=== PATIENT | female | born 1930 | race Caucasian/White ===

== ENCOUNTER → 2016-11-11 | Outpatient (REF) | payer MEDICARE, OTHER ==
[~2016-11-11] MED LIST: /AMLO25TA OR; ASPI81TA83 OR; CIPR25SS OR; LOVA20TA2 OR; PLAV75TA2 OR; PROP80CA OR; TOFR10TA OR
[2016-11-11 12:12] LABS: ALBUMIN 3.6 GM/DL (3.2-5.2); ALBUMIN/GLOBULIN RATIO 1.09 (1.00-1.93); BILIRUBIN,TOTAL 0.6 MG/DL (0.2-1.0); CALCIUM LEVEL 8.4 MG/DL (8.8-10.2); CREATININE FOR GFR 1.22 MG/DL (0.55-1.02); GLOMERULAR FILTRATION RATE 44.8 (>32); POTASSIUM SERUM 4.1 MEQ/L (3.5-5.1); TOTAL PROTEIN 6.9 GM/DL (6.4-8.2)
[2016-11-11 12:13] LABS: FREE T4 1.43 NG/DL (0.76-1.46)
== END ==
LOC: M SFHCCLAY 08:15
PROVIDERS: ATTEND Family Medicine
DX: I47.1 Supraventricular tachycardia (principal); F41.9 Anxiety disorder, unspecified; I69.30 Unspecified sequelae of cerebral infarction

== ENCOUNTER → 2017-09-20 | Outpatient (REF) | payer MEDICARE, OTHER ==
[2017-09-20 11:43] LABS: ALBUMIN 3.9 GM/DL (3.2-5.2); ALBUMIN/GLOBULIN RATIO 1.15 (1.00-1.93); ALKALINE PHOSPHATASE 92 U/L (45-117); ALT/SGPT 10 U/L (12-78); ANION GAP 5 MEQ/L (8-16); AST/SGOT 11 U/L (7-37); BILIRUBIN,TOTAL 0.5 MG/DL (0.2-1.0); BLOOD UREA NITROGEN 14 MG/DL (7-18); CALCIUM LEVEL 8.6 MG/DL (8.8-10.2); CARBON DIOXIDE LEVEL 29 MEQ/L (21-32); CHLORIDE LEVEL 109 MEQ/L (98-107); CHOLESTEROL LEVEL 148 MG/DL (<200); CHOLESTEROL RISK RATIO 2.312 (<5); CREATININE FOR GFR 1.19 MG/DL (0.55-1.30); GLUCOSE, FASTING 90 MG/DL (70-100); HDL CHOLESTEROL 64 MG/DL (>40); LDL CHOLESTEROL 67.4 MG/DL (<100); NON-HDL-C 84 MG/DL; POTASSIUM SERUM 4.5 MEQ/L (3.5-5.1); SODIUM LEVEL 143 MEQ/L (136-145); TOTAL PROTEIN 7.3 GM/DL (6.4-8.2); TRIGLYCERIDES LEVEL 83 MG/DL (<150)
== END ==
LOC: M SFHCCLAY 08:17
DX: I69.30 Unspecified sequelae of cerebral infarction (principal); Z79.82 Long term (current) use of aspirin; Z79.01 Long term (current) use of anticoagulants; Z79.899 Other long term (current) drug therapy
CPT/HCPCS: 84443

== ENCOUNTER → 2017-09-28 | Outpatient (CLI) | payer MEDICARE, OTHER | LOC: M CLY 14:08 | DX: M25.521 Pain in right elbow (principal); M79.621 Pain in right upper arm | CPT/HCPCS: 73080 ==

== ENCOUNTER → 2018-03-22 | Outpatient (REF) | payer MEDICARE, OTHER ==
[2018-03-22 12:07] LABS: ANION GAP 8 MEQ/L (8-16); BLOOD UREA NITROGEN 25 MG/DL (7-18); CALCIUM LEVEL 8.5 MG/DL (8.8-10.2); CARBON DIOXIDE LEVEL 27 MEQ/L (21-32); CHLORIDE LEVEL 108 MEQ/L (98-107); CREATININE FOR GFR 1.38 MG/DL (0.55-1.30); GLOMERULAR FILTRATION RATE 38.7 (>32); GLUCOSE, FASTING 96 MG/DL (70-100); POTASSIUM SERUM 4.3 MEQ/L (3.5-5.1); SODIUM LEVEL 143 MEQ/L (136-145)
== END ==
LOC: M SFHCCLAY 07:44
DX: Z00.00 Encounter for general adult medical examination without abnormal findings (principal); I47.1 Supraventricular tachycardia
CPT/HCPCS: 84443

== ENCOUNTER → 2018-11-28 | Outpatient (REF) | payer MEDICARE, OTHER ==
[~2018-11-28] MED LIST changes: -/AMLO25TA OR; +NORV2TAB OR
[2018-11-28 11:58] LABS: CALCIUM LEVEL 8.8 MG/DL (8.8-10.2); CHOLESTEROL RISK RATIO 2.49 (<5); CREATININE FOR GFR 1.3 MG/DL (0.55-1.30); GLOMERULAR FILTRATION RATE 41.4 (>32); POTASSIUM SERUM 4.2 MEQ/L (3.5-5.1)
[2018-11-28 12:00] LABS: TOTAL 25(OH) VITAMIN D 9.6 NG/ML (30.0-100.0)
== END ==
LOC: M SFHCCLAY 07:40
PROVIDERS: ATTEND Family Medicine
DX: I47.1 Supraventricular tachycardia (principal); F41.9 Anxiety disorder, unspecified; I69.30 Unspecified sequelae of cerebral infarction; Z79.82 Long term (current) use of aspirin

== ENCOUNTER → 2020-04-03 | Outpatient (REF) | payer MEDICARE, OTHER ==
[2020-04-03 12:22] LABS: ALBUMIN 3.5 GM/DL (3.2-5.2); BILIRUBIN,TOTAL 0.5 MG/DL (0.2-1.0); CALCIUM LEVEL 8.7 MG/DL (8.8-10.2); CHOLESTEROL RISK RATIO 2.431 (<5); CREATININE FOR GFR 1.46 MG/DL (0.55-1.30); GLOMERULAR FILTRATION RATE 36.1 (>32); POTASSIUM SERUM 4.7 MEQ/L (3.5-5.1); TOTAL PROTEIN 6.8 GM/DL (6.4-8.2)
== END ==
LOC: M SFHCCLAY 11:33
PROVIDERS: ATTEND Family Medicine
DX: I10 Essential (primary) hypertension (principal); E78.00 Pure hypercholesterolemia, unspecified

== ENCOUNTER → 2020-05-05 | Outpatient (REF) | payer MEDICARE, OTHER ==
[2020-05-05 12:31] LABS: CALCIUM LEVEL 9.1 MG/DL (8.8-10.2); CREATININE FOR GFR 1.61 MG/DL (0.55-1.30); GLOMERULAR FILTRATION RATE 32.2 (>32); POTASSIUM SERUM 4.9 MEQ/L (3.5-5.1)
== END ==
LOC: M SFHCCLAY 07:57
PROVIDERS: ATTEND Family Medicine
DX: N18.32 Chronic kidney disease, stage 3b (principal)

== ENCOUNTER → 2020-07-31 | Outpatient (REF) | payer MEDICARE, OTHER ==
[2020-07-31 12:21] LABS: CALCIUM LEVEL 9.3 MG/DL (8.8-10.2); CREATININE FOR GFR 1.83 MG/DL (0.55-1.30); GLOMERULAR FILTRATION RATE 27.8 (>32); POTASSIUM SERUM 4.9 MEQ/L (3.5-5.1)
== END ==
LOC: M SFHCCLAY 08:02
PROVIDERS: ATTEND Family Medicine
DX: I12.9 Hypertensive chronic kidney disease with stage 1 through stage 4 chronic kidney disease, or unspecified chronic kidney disease (principal)

== ENCOUNTER → 2020-09-17 | Outpatient (REF) | payer MEDICARE, OTHER ==
[2020-09-17 12:12] LABS: HEMATOCRIT 39.2 % (36.0-47.0); HEMOGLOBIN 12.6 g/dl (12.0-15.5); MEAN CORPUSCULAR HEMOGLOBIN 33.2 pg (27.0-33.0); MEAN CORPUSCULAR HGB CONC 32.1 g/dl (32.0-36.5); MEAN CORPUSCULAR VOLUME 103.4 fl (80.0-96.0); PLATELET COUNT, AUTOMATED 331 10^3/uL (150-450); RED BLOOD COUNT 3.79 10^6/uL (4.00-5.40); WHITE BLOOD COUNT 9.2 10^3/uL (4.0-10.0)
[2020-09-17 12:42] LABS: ERYTHROCYTE SEDIMENTATION RATE 19 mm/hr (0-30)
[2020-09-17 14:46] LABS: C REACTIVE PROTEIN QUANTITATIV < 0.30 MG/DL (0.00-0.30)
[2020-09-17 17:06] LABS: APPEARANCE, URINE CLOUDY (CLEAR); BACTERIA, URINE AUTO 1+ (NEGATIVE); BILIRUBIN, URINE AUTO NEGATIVE (NEGATIVE); BLOOD, URINE BLOOD 2+ (NEGATIVE); COLOR, URINE YELLOW (YELLOW); GLUCOSE, URINE (UA) AUTO NEGATIVE (NEGATIVE); KETONE, URINE AUTO NEGATIVE (NEGATIVE); LEUKOCYTE ESTERASE, URINE AUTO TRACE (NEGATIVE); NITRITE, URINE AUTO POSITIVE (NEGATIVE); PROTEIN, URINE AUTO NEGATIVE (NEGATIVE); RBC, URINE AUTO 3 /HPF (0-3); SQUAMOUS EPITHELIAL CELL UR AU 0 /HPF (0-6); WBC, URINE AUTO 31 /HPF (0-3)
== END ==
LOC: M SFHCCLAY 08:02
PROVIDERS: ATTEND Family Medicine
DX: I12.9 Hypertensive chronic kidney disease with stage 1 through stage 4 chronic kidney disease, or unspecified chronic kidney disease (principal); N18.4 Chronic kidney disease, stage 4 (severe)

== ENCOUNTER → 2020-10-17 | Outpatient (REF) | payer MEDICARE, OTHER ==
[2020-10-17 12:29] LABS: CALCIUM LEVEL 8.8 MG/DL (8.8-10.2); CREATININE FOR GFR 1.39 MG/DL (0.55-1.30); GLOMERULAR FILTRATION RATE 38.2 (>32); POTASSIUM SERUM 4.5 MEQ/L (3.5-5.1)
== END ==
LOC: M SFHCCLAY 09:20
PROVIDERS: ATTEND Family Medicine
DX: I12.9 Hypertensive chronic kidney disease with stage 1 through stage 4 chronic kidney disease, or unspecified chronic kidney disease (principal)
CPT/HCPCS: 80048; G0463

== ENCOUNTER → 2021-01-19 | Outpatient (CLI) | payer MEDICARE, OTHER ==
--- NOTE | 2021-01-19 10:01 | REP ---
INDICATION: M70.61, TROCHANTERIC BURSITIS RIGHT HIP. COMPARISON: None. TECHNIQUE: AP and frogleg views of the right hip are provided. FINDINGS: The right femoral head is smooth and rounded hip joint space is preserved. Periarticular soft tissues are unremarkable. There is diffuse osteoporosis. Bones, joints and soft tissues are otherwise unremarkable. IMPRESSION: Diffuse osteopenia. No acute bony abnormality. <Electronically signed by Amish Nation > 01/19/21 0911
== END ==
LOC: M CLY 09:40
PROVIDERS: ATTEND Family Medicine
DX: M81.0 Age-related osteoporosis without current pathological fracture (principal)

== ENCOUNTER → 2021-03-20 | Outpatient (REF) | payer MEDICARE, OTHER ==
[~2021-03-20] MED LIST changes: +IMIP10TA2 PO; +LOVA20TA2 PO; +PROP60CA PO
[2021-03-20 12:45] LABS: CREATININE FOR GFR 1.65 MG/DL (0.55-1.30); GLOMERULAR FILTRATION RATE 31.3 (>32); POTASSIUM SERUM 4.8 MEQ/L (3.5-5.1)
== END ==
LOC: M SFHCCLAY 08:10
PROVIDERS: ATTEND Urology
DX: R31.0 Gross hematuria (principal)
CPT/HCPCS: 80048; G0463

== ENCOUNTER → 2021-03-23 | Outpatient (CLI) | payer MEDICARE, OTHER ==
[~2021-03-23] MED LIST changes: +ISOVUE-370 76% 100ML VIAL As Ordered ONE
--- NOTE | 2021-03-23 09:20 | REP ---
INDICATION: BLADDER TUMOR, GROSS HEMATURIA. COMPARISON: None TECHNIQUE: Axial precontrast, contrast-enhanced and delayed images from the lung bases to the pubic symphysis using 100 cc Isovue 370 intravenous contrast material. Coronal and sagittal reformations obtained. This CT examination was performed using the following dose reduction techniques: Automated exposure control, adjustment of mA and/or kv according to the patient's size, and the use of iterative reconstruction technique. FINDINGS: Evaluation of the tract system demonstrates relatively normal appearance of the bilateral kidneys with 1.0 cm and 2.3 cm benign cysts in the right kidney along with 1 cm and subcentimeter cysts in the left kidney. There is no perinephric stranding, nephrolithiasis or hydroureteronephrosis. The bladder demonstrates a 4.2 x 1.9 by 4.0 cm mass along the right posterolateral bladder wall. The adjacent pelvis is without obvious adenopathy, stranding or fluid. Patient is also noted to be status post hysterectomy. Liver, spleen, pancreas, and bilateral adrenal glands are normal. Gallbladder demonstrates small amount of layering gravel without acute cholecystitis. The enteric system is without obstruction or acute inflammatory process. Colonic and sigmoid diverticulosis noted without acute diverticulitis. Atherosclerotic changes to the aorta and vasculature noted without evidence for dissection. Mild aortic ectasia is suggested without significant aneurysmal dilatation. Skeletal structures demonstrate osteopenia and degenerative changes without acute osseous abnormality. Lung bases demonstrate nonspecific interstitial changes. IMPRESSION: Bladder mass as described above. No evidence for extension into the pelvis or obvious metastatic disease. No ascites or adenopathy. Small benign renal cysts. Cholelithiasis Sigmoid diverticulosis. <Electronically signed by William Freitas > 03/23/21 0931
== END ==
LOC: M RAD 08:12
PROVIDERS: ATTEND Nurse Practitioner Women's Health
DX: Q61.02 Congenital multiple renal cysts (principal); N32.89 Other specified disorders of bladder; K80.20 Calculus of gallbladder without cholecystitis without obstruction; K57.30 Diverticulosis of large intestine without perforation or abscess without bleeding; D49.4 Neoplasm of unspecified behavior of bladder; R31.0 Gross hematuria
CPT/HCPCS: 52000; 74178; 88108; Q9967

== ENCOUNTER → 2021-04-02 | Outpatient (REF) | payer MEDICARE, OTHER ==
[~2021-04-02] MED LIST changes: +AMLO2.5T3 PO; +ATIV1TAB7 PO; +BACT800T5 PO; -ISOVUE-370 76% 100ML VIAL As Ordered ONE; +ONDA4TAB6 PO; +PERCOCET PO; +TRAN1DIS4 TOP
[2021-04-02 16:38] LABS: HEMATOCRIT 37.7 % (36.0-47.0); HEMOGLOBIN 12.4 g/dl (12.0-15.5); MEAN CORPUSCULAR HEMOGLOBIN 33.3 pg (27.0-33.0); MEAN CORPUSCULAR HGB CONC 32.9 g/dl (32.0-36.5); MEAN CORPUSCULAR VOLUME 101.3 fl (80.0-96.0); PLATELET COUNT, AUTOMATED 349 10^3/uL (150-450); RED BLOOD COUNT 3.72 10^6/uL (4.00-5.40); WHITE BLOOD COUNT 11.5 10^3/uL (4.0-10.0)
[2021-04-02 16:41] LABS: ALBUMIN 3.5 GM/DL (3.2-5.2); BILIRUBIN,TOTAL 0.5 MG/DL (0.2-1.0); CALCIUM LEVEL 9.4 MG/DL (8.8-10.2); CREATININE FOR GFR 1.53 MG/DL (0.55-1.30); FREE T4 1.42 NG/DL (0.76-1.46); GLOMERULAR FILTRATION RATE 34.1 (>32); POTASSIUM SERUM 6.1 MEQ/L (3.5-5.1); THYROID STIMULATING HORMONE 4.1 uIU/ML (0.358-3.740); TOTAL PROTEIN 7.3 GM/DL (6.4-8.2)
== END ==
LOC: M LABSMT 09:08
PROVIDERS: ATTEND Urology
DX: Z01.818 Encounter for other preprocedural examination (principal); N32.89 Other specified disorders of bladder; N39.0 Urinary tract infection, site not specified; Z79.899 Other long term (current) drug therapy

== ENCOUNTER → 2021-04-02 | Outpatient (CLI) | payer MEDICARE, OTHER ==
--- NOTE | 2021-04-02 10:29 | REP ---
INDICATION: PAROSYSMAL SUPRAVENTRICULARE TACHYCARDIA. COMPARISON: 07/22/2011 the latest prior TECHNIQUE: PA and lateral FINDINGS: There is evidence of biapical pleuroparenchymal scarring status quo. Lung villalba are again seen to be hyperexpanded. Thoracic aortic tortuosity has increased from the prior exam. Aneurysmal dilatation cannot be ruled out. There does appear to be at least descending thoracic aortic ectasia. The heart is not enlarged. No acute patchy parenchymal opacities or pleural effusions seem to have developed. There is no significant change in appearance of the osseous structures. IMPRESSION: Thoracic aorta as described above. Consider contrast-enhanced CT examination of the chest using CT angio protocol for the thoracic aorta. There are chronic lung field changes as described above. These can be evaluated at the time CT angiography of the chest is performed. <Electronically signed by Max Caal > 04/02/21 4172
== END ==
LOC: M CLY 09:00
PROVIDERS: ATTEND Family Medicine
DX: Z01.818 Encounter for other preprocedural examination (principal); I47.1 Supraventricular tachycardia; I12.9 Hypertensive chronic kidney disease with stage 1 through stage 4 chronic kidney disease, or unspecified chronic kidney disease; N32.89 Other specified disorders of bladder; N39.0 Urinary tract infection, site not specified; Z79.899 Other long term (current) drug therapy; Z23 Encounter for immunization
CPT/HCPCS: 71046; 80053; 84439; 84443; 85027; 87088; 87186; 90682; 93005; G0008; G0463

== ENCOUNTER → 2021-04-03 | Outpatient (REF) | payer MEDICARE, OTHER ==
[~2021-04-03] MED LIST changes: -AMLO2.5T3 PO; -ATIV1TAB7 PO; -BACT800T5 PO; -ONDA4TAB6 PO; -PERCOCET PO; -TRAN1DIS4 TOP
== END ==
LOC: M SFHCCLAY 07:54
PROVIDERS: ATTEND Family Medicine
DX: E87.5 Hyperkalemia (principal)

== ENCOUNTER → 2021-04-08 | Outpatient (CLI) | payer MEDICARE, OTHER | LOC: M LABSMTC 10:03 | PROVIDERS: ATTEND Anesthesiology | DX: Z01.818 Encounter for other preprocedural examination (principal); Z11.52 Encounter for screening for COVID-19 ==

== ENCOUNTER 2021-04-13 10:35 | Day surgery (SDC) | payer MEDICARE, OTHER ==
[~2021-04-13] VITALS: Ht 157.5 cm; Wt 38.9 kg
[~2021-04-13 10:35] MED LIST changes: +LIDOCAINE 1% MDV 20ML VIAL SQ PRN; +LIDOCAINE 2% 100MG/5ML SDV (FOR ANES.) As Ordered ONE; +LR 1,000 ML IV ONE; +ONDANSETRON 4MG/2ML VIAL As Ordered ONE; +ROCURONIUM BROMIDE 50 MG/5 ML VIAL As Ordered ONE; +ceFAZolin SOD 2 GM in IV 1 EA IV ONE; +dexameTHASONE 4 MG/ML 1ML VIAL (J1100 PER 1MG) As Ordered ONE; +fentaNYL 100 MCG/2 ML INJECTION (J3010) As Ordered ONE; +propofoL 200 MG/20 ML VIAL As Ordered ONE
--- OUTSIDE RECORDS SUMMARY | 2021-04-13 10:39 | CCD ---
Author Author [facility] Organization [facility] Address Unknown Phone Unavailable Care Team Providers Care Sr. Strategic Sourcing Manager Name Role Phone Arben Posadas Unavailable PROBLEMS Type Condition ICD9-CM Code [id number] Code Onset Dates Condition S tatus W/U Status Risk SNOMED Code Notes Problem Anxiety F41.9 Active confirmed 17308459 Problem Paroxysmal supraventricular tachycardia I47.1 Active confirmed 10050868 Problem Cerebral thrombosis with cerebral infarction I63.3 0 Active confirmed 086557323 Problem Need for prophylactic vaccination and inoculatio n against influenza Z23 Active confirmed 77156699 Problem History of stroke with residual deficit I69.30 Active confirmed 532347474 Problem 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 Active confirmed 649734224 Problem Medicare annual wellness visit, subsequent Z00.00 Active confirmed 863617362 Problem Encounter for general adult medical exam ination with abnormal findings Z00.01 Active confirmed 979150155 Problem Arteriosclerosis of both carotid arteries I65.23 Active confirmed 79255598 Problem Hypovitaminosis D E55.9 Active confirmed 34 823311 Problem Hypertensive chronic kidney disease with stage 1 through stage 4 chronic kidney disease, or unspecified chronic kidney disease I12.9 Active confirmed [id number] Problem UTI (urinary tract infection) N39.0 Active confirm ed 48283602 Problem Age-related osteoporosis without current pathological fracture M81.0 Active confirmed 24036941 Problem Gross hematuria R31.0 Active confirmed 1979 49127 Problem Menopause Z78.0 Active confirmed 299812231 Problem Hallucination, hypnopompic R44.2 Active confirmed 2058551 Problem Hypertensive kidney disease I12.9 Active confirmed 12752230 Problem Bladder mass N32.89 Active confirmed 9516796 04 Problem Preop testing Z01.818 Active confirmed 67107 9001 ALLERGIES Allergen (clinical drug ingredient) Drug/Non Drug Allergy do cumented on EMR Reaction Allergy Type Onset Date Status buspirone Buspirone "floaty" feeling Drug Allergy Active Latex Latex Rash Drug Allergy Active atorvastatin Lipitor([facility] Code:[address]-97) photo sensitivit y rash Drug Allergy Active ENCOUNTERS from 1932 to 2021-04-03 Encounter Location Date Provider Diagnosis [facility] Marychuy HUNTER [phone] [place] [address] Mar, Arben Posadas Hyperkalemia E87.5 IMMUNIZATIONS Vaccine Route Administration Date Status Influenza 18 yrs & older Flublok IM Intramuscular Apr 09, 2020 Administered Influenza 18 yrs & older Flublok IM Intramuscular Apr 02, 2021 Administered Influenza 18 yrs & older Flublok IM Intramuscular Mar 15, 2019 Administered COVID-19 dose #1 given elsewhere Unspecified Unknown Jul 31, 2020 Administered COVID-19 dose #2 given elsewhere Unspecified Unknown Aug Administered Influenza 6mo & up Fluzone IM Intramuscular Feb 23, 2011 Admi nistered Influenza 18 yrs & older Flublok IM Intramuscular Mar 22, 2018 Administered Influenza (High Dose 65 & up) IM Intramuscular Mar 30, 2016 A dministered Influenza (High Dose 65 & up) IM Intramuscular Apr 02, 2015 A dministered Pneumococcal Adult 0.5mL Pneumovax 23 IM Intramuscular Mar 30 016 Administered Pneumococcal 0.5mL Prevnar 13 IM Intramuscular Mar 26, 2014 A dministered Influenza 6mo & up Fluzone IM Intramuscular Mar 26, 2014 Admi nistered Influenza 6mo & up Fluzone IM Intramuscular May 23, 2013 Admi nistered Influenza 6mo & up Fluzone IM Intramuscular May 02, 2012 Admi nistered SOCIAL HISTORY Tobacco Use: Social History Observation Description Date Details (start date - stop date) Former Smoker Sex Assigned At : Social History Observation Description Sex Assigned At Unknown Audit Question Answer Notes Total Score: 0 Interpretation: Alcohol Education Sexual Hx: Question Answer Notes Had sex in the last 12 months (vaginal, oral, or anal)? No Have you ever had an STD? No Drug and Alcohol Question Answer Notes Total Score: 0 Interpretation: No problems reported Alcohol Screening: Question Answer Notes Did you have a drink containing alcohol in the past year? No Points 0 Interpretation Negative BMI Care Goal Follow-Up Question Answer Notes Below Normal BMI Follow-Up Dietary education for weight gain Tobacco Use: Question Answer Notes Are you a: former smoker former smoker update d 04/02/2021 Additional Findings: Tobacco User no Additional Findings: Tobacco Non-User Current non-smoker How long has it been since you last smoked? 5-10 years REASON FOR REFERRAL No Information VITAL SIGNS No information MEDICATIONS Medication SIG (Take, Route, Frequency, Duration) Notes Start Da te End Date Status Imipramine HCl 10 mg 2 tabs Orally @ bedtime Active Propranolol HCl ER 60 MG 1 capsule Orally Once a day Active Aspir-81 81 MG 1 tablet Orally Once a day Not-Taking Lovastatin 20 mg 1 tablet with a meal Orally Once a day Active Lidocaine HCl 4 % 1 application Externally to lateral thigh Thre e times a day Feb, Active PROCEDURES No Information RESULTS No Results REASON FOR VISIT No Information MEDICAL (GENERAL) HISTORY Type Description Date Medical History anxiety Medical History hypercholesterolemia Medical History PAT Medical History left cartoid bruit Medical History htn Medical History osteopenia Medical History shingles 09/2003 Medical History Stroke effected right side jul 2011 Medical History Raynaud's syndrome Medical History Rosacea Medical History Hypopotassemia Surgical History hysterectomy Surgical History appendectomy Surgical History tonsillectomy Surgical History hemorrhoid trouble Surgical History Breast tumor removal- Benign Surgical History cystoscopy 03/2021 Hospitalization History child Hospitalization History stroke effected right side Jul 2011 Goals Section No Information Health Concerns No Information MEDICAL EQUIPMENT No Information MENTAL STATUS No Information FUNCTIONAL STATUS No Information ASSESSMENTS Encounter Date Diagnosis Assessment Notes Treatment Notes Treatm ent Clinical Notes Mar, Hyperkalemia (ICD-10 - E87.5) PLAN OF TREATMENT Future Test Test Name Order Date Potassium Serum Level [id number] Next Appt Details Provider Name:Raquel Gamboa, 1 09:00:00 AM, [address], , [place], [address], Provider Name:Arben Posadas, 2021-05-22 01 :00:00 PM, [address], , [place], [address], Insurance Providers Payer Name Payer Address Payer Phone Insured Name Patient Relati onship to Insured Coverage Start Date Coverage End Date MEDICARE Part A and B [address] [facility] [phone] ALEXANDER SIFUENTES self FOR LIFE [address] [facility] [address] ALEXANDER SIFUENTES [id number]
--- OUTSIDE RECORDS SUMMARY | 2021-04-13 10:39 | CCD ---
Author Author [facility] Organization [facility] Address Unknown Phone Unavailable Care Team Providers Care Enterprise Security Architect Name Role Phone Arben Posadas Unavailable PROBLEMS Type Condition ICD9-CM Code JQQ33-EA Code Onset Dates Condition S tatus W/U Status Risk SNOMED Code Notes Problem 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 Active confirmed 095630735 Problem Cerebral thrombosis with cerebral infarction I63.3 0 Active confirmed 461770848 Problem Anxiety F41.9 Active confirmed 85371806 Problem Paroxysmal supraventricular tachycardia I47.1 Active confirmed 15104921 Problem Encounter for general adult medical exam ination with abnormal findings Z00.01 Active confirmed 773661184 Problem Medicare annual wellness visit, subsequent Z00.00 Active confirmed 941727671 Problem Menopause Z78.0 Active confirmed 987915531 Problem Hallucination, hypnopompic R44.2 Active confirmed 8853965 Problem History of stroke with residual deficit I69.30 Active confirmed 496544437 Problem Hypertensive kidney disease I12.9 Active confirmed 59313125 Problem Need for prophylactic vaccination and inoculatio n against influenza Z23 Active confirmed 94297447 Problem Age-related osteoporosis without current pathological fracture M81.0 Active confirmed 75484071 Problem Arteriosclerosis of both carotid arteries I65.23 Active confirmed 40874036 Problem Hypovitaminosis D E55.9 Active confirmed 34 291636 Problem Hypertensive chronic kidney disease with stage 1 through stage 4 chronic kidney disease, or unspecified chronic kidney disease I12.9 Active confirmed 634071365450288 ALLERGIES Allergen (clinical drug ingredient) Drug/Non Drug Allergy do cumented on EMR Reaction Allergy Type Onset Date Status buspirone Buspirone "floaty" feeling Drug Allergy Active atorvastatin Lipitor([facility] Code:[address]-54) photo sensitivit y rash Drug Allergy Active Latex Latex Unknown Non Drug Allergy Active ENCOUNTERS from 1932 to 2021-02-19 Encounter Location Date Provider Diagnosis [facility] [address] [phone] [place] [address] Feb, Arben Posadas Neuralgia and neuritis M79.2 IMMUNIZATIONS Vaccine Route Administration Date Status COVID-19 dose #2 given elsewhere Unspecified Unknown Aug Administered Influenza 18 yrs & older Flublok IM Intramuscular Mar 15, 2019 Administered Influenza 18 yrs & older Flublok IM Intramuscular Apr 09, 2020 Administered COVID-19 dose #1 given elsewhere Unspecified Unknown Jul 31, 2020 Administered Influenza 6mo & up Fluzone IM [...] a: former smoker former smoker update d 02/18/2021 Additional Findings: Tobacco User no Additional Findings: Tobacco Non-User Current non-smoker How long has it been since you last smoked? 5-10 years REASON FOR REFERRAL No Information VITAL SIGNS Weight 89.8 lbs Feb, Height 61.5 in Feb, BMI 16.69 kg/m2 Feb, Heart Rate 78 /min Feb, Respiratory Rate 18 /min Feb, Temperature 97.8 degrees Fahrenheit Feb, Oximetry 95RA Feb, Blood pressure systolic 144 mm Hg Feb, Blood pressure diastolic 60 mm Hg Feb, MEDICATIONS Medication SIG (Take, Route, Frequency, Duration) Notes Start Da te End Date Status Aspir-81 81 MG 1 tablet Orally Once a day Active busPIRone HCl 5 MG 1 tablet Orally Twice a day for 30 Days Jan, Not-Taking Vitamin D 25 MCG (1000 UT) 1 tablet Orally Once a day Not-Taking amLODIPine Besylate 2.5 MG 1 tablet Orally Once a day at bedtime October, Active Voltaren 1 % 4gm Externally right hip, qid Jan, Not-Taking Lovastatin 20 mg 1 tablet with a meal Orally Once a day Active Propranolol HCl ER 60 MG 1 capsule Orally Once a day Active Imipramine HCl 10 mg 2 tabs Orally @ bedtime Active Lidocaine HCl 4 % 1 application Externally to lateral thigh Thre e times a day Feb, Active PROCEDURES No Information RESULTS No Results REASON FOR VISIT 4 mo follow up MEDICAL (GENERAL) HISTORY Type Description Date Medical [...] trouble Surgical History Breast tumor removal- Benign Hospitalization History child Hospitalization History stroke effected right side Jul 2011 Goals Section No Information Health Concerns No Information MEDICAL EQUIPMENT No Information MENTAL STATUS No Information FUNCTIONAL STATUS No Information ASSESSMENTS Encounter Date Diagnosis Assessment Notes Treatment Notes Treatm ent Clinical Notes Feb, Neuralgia and neuritis (ICD-10 - M79.2) use under non-adherent, non-absorbing cover such as telfa. contingency gabapentin; pain clinic refer. PLAN OF TREATMENT Medication Medication Name Sig Start Date Stop Date Lidocaine HCl 4 % 1 application Externally to lateral thig h Three times a day 15 Feb, 2021 Treatment Notes Assessment Notes Clinical Notes Neuralgia and neuritis use under non-adherent, non- absorbing cover such as telfa.contingency gabapentin; pain clinic refer. Next Appt Details 2 Months Reason: Provider Name:Arben Posadas, 2021-05-22 01 :00:00 PM, [address] , , [place], [address], Insurance Providers Payer Name Payer Address Payer Phone Insured Name Patient Relati onship to Insured Coverage Start Date Coverage End Date MEDICARE Part A and B [address] [facility] [phone] ALEXANDER SIFUENTES self FOR LIFE [address] [facility] [address] ALEXANDER SIFUENTES [id number]
--- OUTSIDE RECORDS SUMMARY | 2021-04-13 10:39 | CCD ---
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 0 Active confirmed 019631352 Problem Anxiety F41.9 Active confirmed 28333187 Problem Paroxysmal supraventricular tachycardia I47.1 Active confirmed 31096087 Problem History of stroke with residual deficit I69.30 Active confirmed 276954575 Problem Need for prophylactic vaccination and inoculatio n against influenza Z23 Active confirmed 54259670 Problem Menopause Z78.0 Active confirmed 188875163 Problem Age-related osteoporosis without current pathological fracture M81.0 Active confirmed 19301526 Problem Arteriosclerosis of both carotid arteries I65.23 Active confirmed 47734100 Problem Hypertensive kidney disease I12.9 Active confirmed 00546345 Problem Medicare annual wellness visit, subsequent Z00.00 Active confirmed 672694725 Problem 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 Active confir med 931536966 Problem Encounter for general adult medical exam ination with abnormal findings Z00.01 Active confirmed 102357222 Problem Hypovitaminosis D E55.9 Active confirmed 34 232408 Problem Hypertensive chronic kidney disease with stage 1 through stage 4 chronic kidney disease, or unspecified chronic kidney disease I12.9 Active confirmed 378261560380841 Problem Hallucination, hypnopompic R44.2 Active confirmed 2137222 Problem Hypertensive kidney disease affecting in first trimester O10.211 Active confirmed 79349897 ALLERGIES Allergen (clinical drug ingredient) Drug/Non Drug Allergy do cumented on EMR Reaction Allergy Type Onset Date Status buspirone Buspirone "floaty" feeling Drug Allergy Active atorvastatin Lipitor([facility] Code:[address]-38) photo sensitivit y rash Drug Allergy Active Latex Latex Unknown Non Drug Allergy Active ENCOUNTERS from 1932 to 2021-01-22 Encounter Location Date Provider Diagnosis [facility] [address] [phone] [place] [address] Jan, Arben Posadas IMMUNIZATIONS Vaccine Route Administration Date Status Influenza 18 yrs & older Flublok IM Intramuscular Apr 09, 2020 Administered Influenza (High Dose 65 & up) IM Intramuscular Mar 30, 2016 A dministered Influenza 18 yrs & older Flublok IM Intramuscular Mar 22, 2018 Administered Influenza 18 yrs & older Flublok IM Intramuscular Mar 15, 2019 Administered Influenza 6mo & up Fluzone IM Intramuscular Feb 23, 2011 Admi nistered COVID-19 dose #2 given elsewhere Unspecified Unknown Aug Administered COVID-19 dose #1 given elsewhere Unspecified Unknown Jul 31, 2020 Administered Influenza (High Dose 65 & up) [...] a: former smoker former smoker update d 01/20/2021 Additional Findings: Tobacco User no Additional Findings: Tobacco Non-User Current non-smoker How long has it been since you last smoked? 5-10 years REASON FOR REFERRAL No Information VITAL SIGNS No information MEDICATIONS Medication SIG (Take, Route, Frequency, Duration) Notes Start Da te End Date Status amLODIPine Besylate 2.5 MG 1 tablet Orally Once a day at bedtime October, Active busPIRone HCl 5 MG 1 tablet Orally Twice a day for 30 Days Jan, Not-Taking Voltaren 1 % 4gm Externally right hip, qid Jan, Not-Taking Propranolol HCl ER 60 MG 1 capsule Orally Once a day Active Imipramine HCl 10 mg 2 tabs Orally @ bedtime Active Vitamin D 25 MCG (1000 UT) 1 tablet Orally Once a day Not-Taking Lovastatin 20 mg 1 tablet with a meal Orally Once a day Active Aspir-81 81 MG 1 tablet Orally Once a day Active PROCEDURES No Information RESULTS No Results [...] No Information FUNCTIONAL STATUS No Information ASSESSMENTS No Information PLAN OF TREATMENT Next Appt Details Provider Name:Arben Carissa Mendezh, 2021-02-18 01 :30:00 PM, [address] , , [place], [address], Insurance Providers Payer Name Payer Address Payer Phone Insured Name Patient Relati onship to Insured Coverage Start Date Coverage End Date MEDICARE Part A and B [address] [facility] [id number] ALEXANDER SIFUENTES self FOR LIFE [address] [facility] [address] ALEXANDER SIFUENTES [id number]
--- OUTSIDE RECORDS SUMMARY | 2021-04-13 10:39 | CCD ---
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 0 Active confirmed 088076618 Problem Anxiety F41.9 Active confirmed 32044471 Problem Paroxysmal supraventricular tachycardia I47.1 Active confirmed 61166356 Problem History of stroke with residual deficit I69.30 Active confirmed 590010146 Problem Need for prophylactic vaccination and inoculatio n against influenza Z23 Active confirmed 13433492 Problem Menopause Z78.0 Active confirmed 805515863 Problem Age-related osteoporosis without current pathological fracture M81.0 Active confirmed 13212266 Problem Arteriosclerosis of both carotid arteries I65.23 Active confirmed 21646814 Problem Hypertensive kidney disease I12.9 Active confirmed 55285090 Problem Medicare annual wellness visit, subsequent Z00.00 Active confirmed 441875887 Problem 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 Active confir med 806926813 Problem Encounter for general adult medical exam ination with abnormal findings Z00.01 Active confirmed 752291999 Problem Hypovitaminosis D E55.9 Active confirmed 34 473515 Problem Hypertensive chronic kidney disease with stage 1 through stage 4 chronic kidney disease, or unspecified chronic kidney disease I12.9 Active confirmed 574845986982150 Problem Hallucination, hypnopompic R44.2 Active confirmed 7046739 Problem Hypertensive kidney disease affecting in first trimester O10.211 Active confirmed 81832301 ALLERGIES Allergen (clinical drug ingredient) Drug/Non Drug Allergy do cumented on EMR Reaction Allergy Type Onset Date Status atorvastatin Lipitor([facility] Code:[address]-23) photo sensitivit y rash Drug Allergy Active Latex Latex Unknown Non Drug Allergy Active ENCOUNTERS from 1932 to 2021-01-15 Encounter Location Date Provider Diagnosis [facility] [place] [phone] [place] [address] 11 Jan, 2021 Arben Cuauhtemoc Trochanteric bursitis, right hip M70.61 ; History of stroke with residual deficit I69.30 ; Hypertensive kidney disease I12.9 and Anxiety F41.9 IMMUNIZATIONS Vaccine Route Administration Date Status COVID-19 [...] a: former smoker former smoker update d 01/14/2021 Additional Findings: Tobacco User no Additional Findings: Tobacco Non-User Current non-smoker How long has it been since you last smoked? 5-10 years REASON FOR REFERRAL No Information VITAL SIGNS Weight 92.8 lbs Jan, Height 61.5 in Jan, BMI 18.4 kg/m2 Jan, Heart Rate 72 /min Jan, Respiratory Rate 18 /min Jan, Temperature 97.8 degrees Fahrenheit Jan, Oximetry 95RA Jan, Blood pressure systolic 151 mm Hg Jan, Blood pressure diastolic 76 mm Hg Jan, MEDICATIONS Medication SIG (Take, Route, Frequency, Duration) Notes Start Da te End Date Status busPIRone HCl 5 MG 1 tablet Orally Twice a day for 30 Days Jan, Active Imipramine HCl 10 mg 2 tabs Orally Once a day Active Lovastatin 20 mg 1 tablet with a meal Orally Once a day Active Voltaren 1 % 4gm Externally right hip, qid Jan, Active Vitamin D 25 MCG (1000 UT) 1 tablet Orally Once a day Active Propranolol HCl ER 60 MG 1 capsule Orally Once a day Active Aspir-81 81 MG 1 tablet Orally Once a day Active amLODIPine Besylate 2.5 MG 1 tablet Orally Once a day 14 M 2020 Active PROCEDURES No Information RESULTS No Results REASON FOR VISIT right hip pain/ low back pain MEDICAL (GENERAL) HISTORY Type Description Date Medical [...] Notes Treatment Notes Treatm ent Clinical Notes Jan, Trochanteric bursitis, right hip (ICD-10 - M70.6 1) Jan, History of stroke with residual deficit (ICD-10 - I69.30) Jan, Hypertensive kidney disease (ICD-10 - I12.9) Jan, Anxiety (ICD-10 - F41.9) educated about medication and side effects. PLAN OF TREATMENT Medication Medication Name Sig Start Date Stop Date busPIRone HCl 5 MG 1 tablet Orally Twice a day for 30 Days 2020 Propranolol HCl ER 60 MG 1 capsule Orally Once a day Aspir-81 81 MG 1 tablet Orally Once a day Vitamin D 25 MCG (1000 UT) 1 tablet Orally Once a day Imipramine HCl 10 mg 2 tabs Orally Once a day Lovastatin 20 mg 1 tablet with a meal Orally Once a day Voltaren 1 % 4gm Externally right hip, qid Jan, amLODIPine Besylate 2.5 MG 1 tablet Orally Once a day October, Treatment Notes Assessment Notes Clinical Notes Anxiety educated about medication and side effec ts. Future Test Test Name Order Date QUINTEN HIP COMPLETE (AP/LAT) [id number] Next Appt Details 3 weeks Reason: Provider Name:Arben Posadas, 2021-02-18 09 :00:00 AM, [address] , , [place], [address], Insurance Providers Payer Name Payer Address Payer Phone Insured Name Patient Relati onship to Insured Coverage Start Date Coverage End Date MEDICARE Part A and B [address] [facility] [phone] ALEXANDER SIFUENTES self FOR LIFE [address] [facility] [address] ALEXANDER SIFUENTES [id number]
--- OUTSIDE RECORDS SUMMARY | 2021-04-13 10:39 | CCD ---
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 0 Active confirmed 822350333 Problem Anxiety F41.9 Active confirmed 34564372 Problem Paroxysmal supraventricular tachycardia I47.1 Active confirmed 56350869 Problem History of stroke with residual deficit I69.30 Active confirmed 054704486 Problem Need for prophylactic vaccination and inoculatio n against influenza Z23 Active confirmed 44619520 Problem Menopause Z78.0 Active confirmed 872174863 Problem Age-related osteoporosis without current pathological fracture M81.0 Active confirmed 14463005 Problem Arteriosclerosis of both carotid arteries I65.23 Active confirmed 03147217 Problem Hypertensive kidney disease I12.9 Active confirmed 49768870 Problem Medicare annual wellness visit, subsequent Z00.00 Active confirmed 679954865 Problem 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 Active confir med 271235637 Problem Encounter for general adult medical exam ination with abnormal findings Z00.01 Active confirmed 892197302 Problem Hypovitaminosis D E55.9 Active confirmed 34 405402 Problem Hypertensive chronic kidney disease with stage 1 through stage 4 chronic kidney disease, or unspecified chronic kidney disease I12.9 Active confirmed 614888165576938 Problem Hallucination, hypnopompic R44.2 Active confirmed 2937325 Problem Hypertensive kidney disease affecting in first trimester O10.211 Active confirmed 54007110 ALLERGIES Allergen (clinical drug ingredient) Drug/Non Drug Allergy do cumented on EMR Reaction Allergy Type Onset Date Status buspirone Buspirone "floaty" feeling Drug Allergy Active atorvastatin Lipitor([facility] Code:[address]-75) photo sensitivit y rash Drug Allergy Active Latex Latex Unknown Non Drug Allergy Active ENCOUNTERS from 1932 to 2021-01-21 Encounter Location Date Provider Diagnosis [facility] [place] [phone] [place] [address] 17 Jan, 2021 Arben Posadas Trochanteric bursitis of right hip M70.6 1 and Anxiety F41.9 IMMUNIZATIONS Vaccine Route Administration Date Status Influenza 18 yrs & older Flublok IM Intramuscular Apr 09, 2020 Administered Pneumococcal Adult 0.5mL Pneumovax 23 IM Intramuscular Mar 30 016 Administered Influenza 18 yrs & older Flublok IM Intramuscular Mar 22, 2018 Administered Influenza 18 yrs & older Flublok IM Intramuscular Mar 15, 2019 Administered Influenza 6mo & up Fluzone IM Intramuscular Feb 23, 2011 Admi nistered Influenza (High Dose 65 & up) IM Intramuscular Mar 30, 2016 A dministered Influenza (High Dose 65 & up) IM Intramuscular Apr 02, 2015 A dministered COVID-19 dose #2 given elsewhere Unspecified Unknown Aug Administered COVID-19 dose #1 given elsewhere Unspecified Unknown Jul 31, 2020 Administered Pneumococcal 0.5mL Prevnar 13 IM Intramuscular [...] last smoked? 5-10 years REASON FOR REFERRAL from 1932 to 2021-01-21 Reason right hip trochanter bursiti s. xray negative. please eval and treat Diagnosis 1 Trochanteric bursitis of rig ht hip (M70.61) Referral Organization [facility] [place] Referring Provider First Name Arben Referring Provider Last Name Cuauhtemoc Referring Provider Specialty Family Medicine Referred Provider [facility],Pavan delacruz Referred Provider Specialty Physical Therapist Referral Priority Routine General Notes Arben Posadas MD 01/20/2021 4: 27:59 PM > Naomi Morgan 01/20/2021 4:29:52 PM > faxed to clemente VITAL SIGNS Weight 90.8 lbs Jan, Height 61.5 in Jan, BMI 16.88 kg/m2 Jan, Heart Rate 76 /min Jan, Respiratory Rate 20 /min Jan, Temperature 97.8 degrees Fahrenheit Jan, Oximetry 95RA Jan, Blood pressure systolic 150 mm Hg Jan, Blood pressure diastolic 77 mm Hg Jan, MEDICATIONS Medication SIG (Take, [...] Information RESULTS No Results REASON FOR VISIT RIVER ER FOLLOW UP/CALLED FOR RECS! MEDICAL (GENERAL) HISTORY Type Description Date Medical [...] Notes Treatm ent Clinical Notes Jan, Trochanteric bursitis of right hip (ICD-10 - M70 .61) please bring your wrist cuff with you to your next office visit so we can do in- office comparison. Jan, Anxiety (ICD-10 - F41.9) PLAN OF TREATMENT Treatment Notes Assessment Notes Clinical Notes Trochanteric bursitis of right hip please bring your w rist cuff with you to your next office visit so we can do in-office comparison. Referrals Referral Date Details right hip trochanter bursiti s. xray negative. please eval and [place] [facility] Next Appt Details 4 Weeks Reason: Provider Name:Arben Carissa Posadas, 2021-02-18 01 :30:00 PM, [address] , , [place], [address], Insurance Providers Payer Name Payer Address Payer Phone Insured Name Patient Relati onship to Insured Coverage Start Date Coverage End Date MEDICARE Part A and B [address] [facility] [phone] ALEXANDER SIFUENTES self FOR LIFE [address] [facility] [phone] ALEXANDER SIFUENTES [id number]
--- OUTSIDE RECORDS SUMMARY | 2021-04-13 10:39 | CCD ---
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9 Active confirmed 34 044353 Problem Hypertensive chronic kidney disease with stage 1 through stage 4 chronic kidney disease, or unspecified chronic kidney disease I12.9 Active confirmed 566595480734089 Problem UTI (urinary tract infection) N39.0 Active confirm ed 35233355 Problem Age-related osteoporosis without current pathological fracture M81.0 Active confirmed 66711480 Problem Gross hematuria R31.0 Active confirmed 1979 26642 Problem Menopause Z78.0 Active confirmed 589483503 Problem Hallucination, hypnopompic R44.2 Active confirmed 4933268 Problem Hypertensive kidney disease I12.9 Active confirmed 43116906 Problem Bladder mass N32.89 Active confirmed 0129755 04 Problem Preop testing Z01.818 Active confirmed 82014 9001 ALLERGIES Allergen (clinical drug ingredient) Drug/Non Drug Allergy do cumented on EMR Reaction Allergy Type Onset Date Status buspirone Buspirone "floaty" feeling Drug Allergy Active Latex Latex Rash Drug Allergy Active atorvastatin Lipitor([facility] Code:[address]-52) photo sensitivit y rash Drug Allergy Active ENCOUNTERS from 1932 to 2021-03-25 Encounter Location Date Provider Diagnosis [facility] [place] Marychuy H[place]TER [phone] [place] [address] 15 Mar, 2021 Arben Posadas 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 ; 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 and History of stroke with residual deficit I69.30 IMMUNIZATIONS Vaccine Route Administration Date Status COVID-19 [...] FOR REFERRAL No Information VITAL SIGNS Weight 86 lbs lbs Mar, Weight-kg 39.01 kg Mar, Height 61.5 in Mar, BMI 15.98 kg/m2 Mar, Heart Rate 75 /min Mar, Respiratory Rate 18 /min Mar, Temperature 97.8 degrees Fahrenheit Mar, Oximetry 97%ra Mar, Blood pressure systolic 95 mm Hg Mar, Blood pressure diastolic 55 mm Hg Mar, MEDICATIONS Medication SIG (Take, Route, Frequency, Duration) Notes Start Da te End Date Status Vitamin D 25 MCG (1000 UT) 1 tablet Orally Once a day Not-Taking Propranolol HCl ER 60 MG 1 capsule Orally Once a day Active Lovastatin 20 mg 1 tablet with a meal Orally Once a day Active busPIRone HCl 5 MG 1 tablet Orally Twice a day for 30 Days Jan, Not-Taking Aspir-81 81 MG 1 tablet Orally Once a day Active Voltaren 1 % 4gm Externally right hip, qid Jan, Not-Taking Imipramine HCl 10 mg 2 tabs Orally @ bedtime Active Lidocaine HCl 4 % 1 application Externally to lateral thigh Thre e times a day Feb, Active PROCEDURES No Information RESULTS No Results REASON FOR VISIT blood pressure check MEDICAL (GENERAL) HISTORY Type Description Date Medical [...] Treatment Notes Treatm ent Clinical Notes Mar, Bladder tumor (ICD-10 - D49.4) increase intake of fluids and salty foods, including tomato juice, Gatorade, Soup until you feel better. stop amlodipine for now. Mar, Hypotension due to drugs (ICD-10 - I95.2) Mar, History of stroke with residual deficit (ICD-10 - I69.30) PLAN OF TREATMENT Treatment Notes Assessment Notes Clinical Notes Bladder tumor increase intake of fluids an d salty foods, including tomato juice, Gatorade, Soup until you feel better.stop amlodipine for now. Next Appt Details 1 Week Reason: Provider Name:Arben Mendezh, 2021-05-22 01 :00:00 PM, [address] , , [place], [address], Insurance Providers Payer Name Payer Address Payer Phone Insured Name Patient Relati onship to Insured Coverage Start Date Coverage End Date MEDICARE Part A and B [address] [facility] [phone] ALEXANDER SIFUENTES self FOR LIFE [address] [facility] [address] ALEXANDER SIFUENTES [id number]
--- OUTSIDE RECORDS SUMMARY | 2021-04-13 10:39 | CCD ---
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 0 Active confirmed 631318733 Problem Anxiety F41.9 Active confirmed 56403495 Problem Paroxysmal supraventricular tachycardia I47.1 Active confirmed 93453918 Problem History of stroke with residual deficit I69.30 Active confirmed 768992346 Problem Need for prophylactic vaccination and inoculatio n against influenza Z23 Active confirmed 81019196 Problem Menopause Z78.0 Active confirmed 810894197 Problem Age-related osteoporosis without current pathological fracture M81.0 Active confirmed 48841846 Problem Arteriosclerosis of both carotid arteries I65.23 Active confirmed 82922111 Problem Hypertensive kidney disease I12.9 Active confirmed 99750634 Problem Medicare annual wellness visit, subsequent Z00.00 Active confirmed 229368689 Problem 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 Active confir med 613937588 Problem Encounter for general adult medical exam ination with abnormal findings Z00.01 Active confirmed 064913553 Problem Hypovitaminosis D E55.9 Active confirmed 34 241275 Problem Hypertensive chronic kidney disease with stage 1 through stage 4 chronic kidney disease, or unspecified chronic kidney disease I12.9 Active confirmed 586255827055710 Problem Hallucination, hypnopompic R44.2 Active confirmed 3579095 Problem Hypertensive kidney disease affecting in first trimester O10.211 Active confirmed 07103987 ALLERGIES Allergen (clinical drug ingredient) Drug/Non Drug Allergy do cumented on EMR Reaction Allergy Type Onset Date Status atorvastatin Lipitor([facility] Code:[address]-71) photo sensitivit y rash Drug Allergy Active Latex Latex Unknown Non Drug Allergy Active ENCOUNTERS from 1932 to 2021-01-14 Encounter Location Date Provider Diagnosis [facility] [place] [phone] [place] [address] 10 Jan, 2021 Arben Posadas IMMUNIZATIONS Vaccine Route Administration Date [...] a: former smoker former smoker update d 10/17/2020 Additional Findings: Tobacco User no Additional Findings: Tobacco Non-User Current non-smoker How long has it been since you last smoked? 5-10 years REASON FOR REFERRAL No Information VITAL SIGNS No information MEDICATIONS Medication SIG (Take, Route, Frequency, Duration) Notes Start Da te End Date Status Imipramine HCl 10 mg 2 tabs Orally Once a day Active amLODIPine Besylate 2.5 MG 1 tablet Orally Once a day for 90 day (s) October, Active Lovastatin 20 mg 1 tablet with a meal Orally Once a day Active Propranolol HCl ER 60 MG 1 capsule Orally Once a day for 30 Active Aspir-81 81 MG 1 tablet Orally Once a day Active Vitamin D 25 MCG (1000 UT) 1 tablet Orally Once a day Not-Taking PROCEDURES No Information RESULTS No Results REASON [...] Information ASSESSMENTS No Information PLAN OF TREATMENT Medication Medication Name Sig Start Date Stop Date Imipramine HCl 10 mg 2 tabs Orally Once a day Aspir-81 81 MG 1 tablet Orally Once a day Lovastatin 20 mg 1 tablet with a meal Orally Once a day Propranolol HCl ER 60 MG 1 capsule Orally Once a day for 30 amLODIPine Besylate 2.5 MG 1 tablet Orally Once a day for 90 day(s) October, Next Appt Details Provider Name:Arben Posadas, 2021-01-14 10 :30:00 AM, [address], , [place], [address], Provider Name:Arben Posadas, 2021-02-18 09 :00:00 AM, [address], , [place], [address], Insurance Providers Payer Name Payer Address Payer Phone Insured Name Patient Relati onship to Insured Coverage Start Date Coverage End Date FOR LIFE [address] [facility] [id number] ALEXANDER SIFUENTES [id number] MEDICARE Part A and B [address] [place] [phone] ALEXANDER SIFUENTES self
--- OUTSIDE RECORDS SUMMARY | 2021-04-13 10:39 | CCD ---
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9 Active confirmed 34 960808 Problem Hypertensive chronic kidney disease with stage 1 through stage 4 chronic kidney disease, or unspecified chronic kidney disease I12.9 Active confirmed 260494969814966 Problem UTI (urinary tract infection) N39.0 Active confirm ed 69327109 Problem Age-related osteoporosis without current pathological fracture M81.0 Active confirmed 62143374 Problem Gross hematuria R31.0 Active confirmed 1979 64826 Problem Menopause Z78.0 Active confirmed 665247820 Problem Hallucination, hypnopompic R44.2 Active confirmed 7507622 Problem Hypertensive kidney disease I12.9 Active confirmed 70616357 Problem Bladder mass N32.89 Active confirmed 2828781 04 Problem Preop testing Z01.818 Active confirmed 73841 9001 ALLERGIES Allergen (clinical drug ingredient) Drug/Non Drug Allergy do cumented on EMR Reaction Allergy Type Onset Date Status buspirone Buspirone "floaty" feeling Drug Allergy Active Latex Latex Rash Drug Allergy Active atorvastatin Lipitor([facility] Code:[address]-90) photo sensitivit y rash Drug Allergy Active ENCOUNTERS from 1930 to 2021-04-07 Encounter Location Date Provider Diagnosis [facility] [address] [phone] [place] [address] Apr, Don Power IMMUNIZATIONS Vaccine Route Administration Date Status Influenza 18 yrs & older Flublok IM Intramuscular Apr 09, 2020 Administered Influenza 18 yrs & older Flublok IM Intramuscular Apr 02, 2021 Administered Influenza (High Dose 65 & up) [...] Unspecified Unknown Jul 31, 2020 Administered Pneumococcal Adult 0.5mL Pneumovax 23 [...] 1 capsule Orally Once a day Active Lidocaine HCl 4 % 1 application Externally to lateral thigh Thre e times a day Feb, Active Aspir-81 81 MG 1 tablet Orally Once a day Not-Taking Lovastatin 20 mg 1 tablet with a meal Orally Once a day Active Bactrim DS 800-160 MG 1 tablet Orally Twice a day for 10 day(s) Apr, Active Walker - as directed with wheels (not rollator) Mar, Active PROCEDURES No Information RESULTS No Results REASON FOR VISIT UTI MEDICAL (GENERAL) HISTORY Type Description Date Medical [...] Medication Name Sig Start Date Stop Date Walker - as directed with wheels (not rollator) Mar, 021 Bactrim DS 800-160 MG 1 tablet Orally Twice a day for 10 day(s) Apr, Next Appt Details Provider Name:Raquel Gamboa, 1 09:00:00 AM, [address], , [place], [address], Provider Name:Arben Posadas, 2021-05-22 01 :00:00 PM, [address], , [place], [address], Insurance Providers Payer Name Payer Address Payer Phone Insured Name Patient Relati onship to Insured Coverage Start Date Coverage End Date FOR LIFE [address] [facility] [address] ALEXANDER SIFUENTES [id number] MEDICARE Part A and B [address] [facility] [phone] ALEXANDER SIFUENTES self
--- OUTSIDE RECORDS SUMMARY | 2021-04-13 10:39 | CCD ---
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 Active confirmed 056442796 Problem Need for prophylactic vaccination and inoculatio n against influenza Z23 Active confirmed 25739147 Problem Anxiety F41.9 Active confirmed 69237640 Problem Medicare annual wellness visit, subsequent Z00.00 Active confirmed 019161138 Problem Menopause Z78.0 Active confirmed 372649719 Problem Age-related osteoporosis without current pathological fracture M81.0 Active confirmed 19710568 Problem Hypertensive kidney disease I12.9 Active confirmed 89918438 Problem Encounter for general adult medical exam ination with abnormal findings Z00.01 Active confirmed 895311233 Problem Bladder mass N32.89 Active confirmed 7395014 04 Problem History of stroke with residual deficit I69.30 Active confirmed 694104348 Problem Arteriosclerosis of both carotid arteries I65.23 Active confirmed 84640807 Problem Hypovitaminosis D E55.9 Active confirmed 34 455321 Problem Hypertensive chronic kidney disease with stage 1 through stage 4 chronic kidney disease, or unspecified chronic kidney disease I12.9 Active confirmed 415849334243235 Problem Hallucination, hypnopompic R44.2 Active confirmed 5569296 ALLERGIES Allergen (clinical drug ingredient) Drug/Non Drug Allergy do cumented on EMR Reaction Allergy Type Onset Date Status buspirone Buspirone "floaty" feeling Drug Allergy Active Latex Latex Rash Drug Allergy Active atorvastatin Lipitor([facility] Code:[address]-26) photo sensitivit y rash Drug Allergy Active ENCOUNTERS from 1932 to 2021-03-20 Encounter Location Date Provider Diagnosis [facility] Urology [address] [phone] [place] [address] 13 Mar, 2021 Raquel Vallecillomichele Gross hematuria R31.0 and Bladder mass N 32.89 IMMUNIZATIONS Vaccine Route Administration Date Status COVID-19 [...] No Information VITAL SIGNS Weight 86 lbs Mar, Weight-kg 39.01 kg Mar, Height 61.5 in Mar, BMI 15.98 kg/m2 Mar, Heart Rate 84 /min Mar, Respiratory Rate 18 /min Mar, Temperature 97.1 degrees Fahrenheit Mar, Oximetry 95% Mar, Blood pressure systolic 142 mm Hg Mar, Blood pressure diastolic 68 mm Hg Mar, MEDICATIONS Medication SIG (Take, Route, Frequency, Duration) Notes Start Da te End Date Status Voltaren 1 % 4gm Externally right hip, qid Jan, Not-Taking Lovastatin 20 mg 1 tablet with a meal Orally Once a day Active Imipramine HCl 10 mg 2 tabs Orally @ bedtime Active busPIRone HCl 5 MG 1 tablet Orally Twice a day for 30 Days Jan, Not-Taking Aspir-81 81 MG 1 tablet Orally Once a day Active Lidocaine HCl 4 % 1 application Externally to lateral thigh Thre e times a day Feb, Active Vitamin D 25 MCG (1000 UT) 1 tablet Orally Once a day Not-Taking Propranolol HCl ER 60 MG 1 capsule Orally Once a day Active PROCEDURES No Information RESULTS No Results REASON FOR VISIT bladder tumor [facility] MEDICAL (GENERAL) HISTORY Type Description Date Medical [...] Treatment Notes Treatm ent Clinical Notes Mar, Gross hematuria (ICD-10 - R31.0) Mar, Bladder mass (ICD-10 - N32.89) PLAN OF TREATMENT Medication Medication Name Sig Start Date Stop Date Imipramine HCl 10 mg 2 tabs Orally @ bedtime Aspir-81 81 MG 1 tablet Orally Once a day Propranolol HCl ER 60 MG 1 capsule Orally Once a day Lovastatin 20 mg 1 tablet with a meal Orally Once a day Next Appt Details cysto Reason: Provider Name:Don Power, 10:00:00 AM, [address], , [place], [address], Provider Name:Arben Posadas, 2021-05-22 01 :00:00 PM, [address], , [place], [address], Insurance Providers Payer Name Payer Address Payer Phone Insured Name Patient Relati onship to Insured Coverage Start Date Coverage End Date FOR LIFE [address] [facility] [address] ALEXANDER SIFUENTES [id number] MEDICARE Part A and B [address] [facility] [address] ALEXANDER SIFUENTES self
--- OUTSIDE RECORDS SUMMARY | 2021-04-13 10:39 | CCD ---
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9 Active confirmed 34 672568 Problem Hypertensive chronic kidney disease with stage 1 through stage 4 chronic kidney disease, or unspecified chronic kidney disease I12.9 Active confirmed 041283014683402 Problem UTI (urinary tract infection) N39.0 Active confirm ed 30855972 Problem Age-related osteoporosis without current pathological fracture M81.0 Active confirmed 90309557 Problem Gross hematuria R31.0 Active confirmed 1979 34973 Problem Menopause Z78.0 Active confirmed 491776283 Problem Hallucination, hypnopompic R44.2 Active confirmed 9723013 Problem Hypertensive kidney disease I12.9 Active confirmed 78855938 Problem Bladder mass N32.89 Active confirmed 9681945 04 Problem Preop testing Z01.818 Active confirmed 33057 9001 ALLERGIES Allergen (clinical drug ingredient) Drug/Non Drug Allergy do cumented on EMR Reaction Allergy Type Onset Date Status buspirone Buspirone "floaty" feeling Drug Allergy Active Latex Latex Rash Drug Allergy Active atorvastatin Lipitor([facility] Code:[address]-36) photo sensitivit y rash Drug Allergy Active ENCOUNTERS from 1932 to 2021-03-25 Encounter Location Date Provider Diagnosis [facility] Urology [address] [phone] [place] [address] Mar, Don Power Gross hematuria R31.0 ; Bladder mass N32 .89 ; Preop testing Z01.818 and UTI (urinary tract infection) N39.0 IMMUNIZATIONS Vaccine Route Administration Date Status COVID-19 [...] Mar, BMI 15.98 kg/m2 Mar, Heart Rate 72 /min Mar, Respiratory Rate 18 /min Mar, Temperature 97.6 degrees Fahrenheit Mar, Oximetry 97 Mar, Blood pressure systolic 112 mm Hg Mar, Blood pressure diastolic 62 mm Hg Mar, MEDICATIONS Medication SIG (Take, [...] e times a day Feb, Active PROCEDURES from 1932 to 2021-03-25 Procedure Date Ordered Result Body Site Med: Lidocaine Jelly 2% 6ml Intravesically (Glydo) 2021-03-23 N/A RESULTS No Results REASON FOR VISIT BLADDER MASS MEDICAL (GENERAL) HISTORY Type Description Date Medical [...] R31.0) Mar, Bladder mass (ICD-10 - N32.89) Mar, Preop testing (ICD-10 - Z01.818) Mar, UTI (urinary tract infection) (ICD-10 - N39.0) PLAN OF TREATMENT Treatment Notes Test Name Order Date CBC - Complete Blood Count 2021-03-23 URINE CULTURE 2021-03-23 NON EXTRACTIONS TECHNOLOGIST CYTOLOGY REQ FOR SERVI 2021-03-23 Basic Metabolic Profile (BMP) 2021-03-23 [facility] Chest, 2 view (PA\\Lat) 2021-03-23 Electrocardiogram (EKG) 2021-03-23 Next Appt Details surgery Reason: Provider Name:Arben Posadas, 2021-05-22 01 :00:00 PM, [address] , , [place], [address], Insurance Providers Payer Name Payer Address Payer Phone Insured Name Patient Relati onship to Insured Coverage Start Date Coverage End Date MEDICARE Part A and B [address] [facility] [address] ALEXANDER SIFUENTES self FOR LIFE [address] [facility] [address] ALEXANDER SIFUENTES [id number]
--- OUTSIDE RECORDS SUMMARY | 2021-04-13 10:39 | CCD ---
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9 Active confirmed 34 511504 Problem Hypertensive chronic kidney disease with stage 1 through stage 4 chronic kidney disease, or unspecified chronic kidney disease I12.9 Active confirmed 694821285150391 Problem UTI (urinary tract infection) N39.0 Active confirm ed 84397422 Problem Age-related osteoporosis without current pathological fracture M81.0 Active confirmed 00528802 Problem Gross hematuria R31.0 Active confirmed 1979 24144 Problem Menopause Z78.0 Active confirmed 765262065 Problem Hallucination, hypnopompic R44.2 Active confirmed 6108734 Problem Hypertensive kidney disease I12.9 Active confirmed 12737361 Problem Bladder mass N32.89 Active confirmed 2454932 04 Problem Preop testing Z01.818 Active confirmed 63158 9001 ALLERGIES Allergen (clinical drug ingredient) Drug/Non Drug Allergy do cumented on EMR Reaction Allergy Type Onset Date Status buspirone Buspirone "floaty" feeling Drug Allergy Active Latex Latex Rash Drug Allergy Active atorvastatin Lipitor([facility] Code:[address]-06) photo sensitivit y rash Drug Allergy Active ENCOUNTERS from 1932 to 2021-04-03 Encounter Location Date Provider Diagnosis [facility] Mary[place] [phone] [place] [address] Mar, Arben Posadas IMMUNIZATIONS Vaccine Route Administration Date Status Influenza 18 yrs & older Flublok IM Intramuscular Apr 09, 2020 Administered Influenza 18 yrs & older Flublok IM Intramuscular Apr 02, 2021 Administered COVID-19 dose #1 given elsewhere Unspecified [...] mg 2 tabs Orally @ bedtime Active Walker - as directed with wheels (not rollator) Mar, Active Propranolol HCl ER 60 MG 1 capsule Orally Once a day Active Aspir-81 81 MG 1 tablet Orally Once a day Not-Taking Lovastatin 20 mg 1 tablet with a meal Orally Once a day Active Lidocaine HCl 4 % 1 application Externally to lateral thigh Thre e times a day Feb, Active PROCEDURES No Information RESULTS No Results REASON FOR VISIT new walker MEDICAL (GENERAL) HISTORY Type Description Date Medical [...] directed with wheels (not rollator) Mar, 021 Next Appt Details Provider Name:Raquel Gamboa, 1 09:00:00 AM, [address], , [place], [address], Provider Name:Arben Posadas, 2021-05-22 01 :00:00 PM, [address], , [place], [address], Insurance Providers Payer Name Payer Address Payer Phone Insured Name Patient Relati onship to Insured Coverage Start Date Coverage End Date FOR LIFE [address] [facility] [phone] ALEXANDER SIFUENTES [id number] MEDICARE Part A and B [address] [place] [phone] ALEXANDER SIFUENTES self
--- OUTSIDE RECORDS SUMMARY | 2021-04-13 10:39 | CCD ---
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9 Active confirmed 34 634880 Problem Hypertensive chronic kidney disease with stage 1 through stage 4 chronic kidney disease, or unspecified chronic kidney disease I12.9 Active confirmed 794136232996366 Problem UTI (urinary tract infection) N39.0 Active confirm ed 46016087 Problem Age-related osteoporosis without current pathological fracture M81.0 Active confirmed 07872695 Problem Gross hematuria R31.0 Active confirmed 1979 63056 Problem Menopause Z78.0 Active confirmed 466068836 Problem Hallucination, hypnopompic R44.2 Active confirmed 1820360 Problem Hypertensive kidney disease I12.9 Active confirmed 20968817 Problem Bladder mass N32.89 Active confirmed 8670272 04 Problem Preop testing Z01.818 Active confirmed 52036 9001 ALLERGIES Allergen (clinical drug ingredient) Drug/Non Drug Allergy do cumented on EMR Reaction Allergy Type Onset Date Status buspirone Buspirone "floaty" feeling Drug Allergy Active Latex Latex Rash Drug Allergy Active atorvastatin Lipitor([facility] Code:[address]-55) photo sensitivit y rash Drug Allergy Active ENCOUNTERS from 1932 to 2021-04-01 Encounter Location Date Provider Diagnosis [facility] [address]uy [address] [phone] [place] [address] Mar, Arben Posadas IMMUNIZATIONS Vaccine Route Administration [...] Information RESULTS No Results REASON FOR VISIT labs order ?update MEDICAL (GENERAL) HISTORY Type Description Date Medical [...] OF TREATMENT Next Appt Details Provider Name:Arben Posadas, 2021-04-02 09 :00:00 AM, [address], , [place], [address], Provider Name:Raquel Gamboa, 09:00:00 AM, [address], , [place], [address], Provider Name:Arben Posadas, 2021-05-22 01 :00:00 PM, [address], , [place], [address], Insurance Providers Payer Name Payer Address Payer Phone Insured Name Patient Relati onship to Insured Coverage Start Date Coverage End Date MEDICARE Part A and B [address] [facility] [phone] ALEXANDER SIFUENTES [facility] FOR LIFE [address] [facility] [address] ALEXANDER SIFUENTES [id number]
--- OUTSIDE RECORDS SUMMARY | 2021-04-13 10:39 | CCD ---
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 Active confirmed 882417224 Problem Cerebral thrombosis with cerebral infarction I63.3 0 Active confirmed 631611239 Problem Anxiety F41.9 Active confirmed 50412297 Problem Paroxysmal supraventricular tachycardia I47.1 Active confirmed 58531748 Problem History of stroke with residual deficit I69.30 Active confirmed 570103927 Problem Need for prophylactic vaccination and inoculatio n against influenza Z23 Active confirmed 45326638 Problem Menopause Z78.0 Active confirmed 613278991 Problem Age-related osteoporosis without current pathological fracture M81.0 Active confirmed 86269202 Problem Arteriosclerosis of both carotid arteries I65.23 Active confirmed 25105629 Problem Hypertensive kidney disease I12.9 Active confirmed 27587645 Problem Medicare annual wellness visit, subsequent Z00.00 Active confirmed 626146530 Problem 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 Active confir med 495517137 Problem Encounter for general adult medical exam ination with abnormal findings Z00.01 Active confirmed 442737244 Problem Hypovitaminosis D E55.9 Active confirmed 34 454829 Problem Hypertensive chronic kidney disease with stage 1 through stage 4 chronic kidney disease, or unspecified chronic kidney disease I12.9 Active confirmed 130541501995334 Problem Hallucination, hypnopompic R44.2 Active confirmed 8561586 Problem Hypertensive kidney disease affecting in first trimester O10.211 Active confirmed 76105752 ALLERGIES Allergen (clinical drug ingredient) Drug/Non Drug Allergy do cumented on EMR Reaction Allergy Type Onset Date Status atorvastatin Lipitor([facility] Code:[address]-97) photo sensitivit y rash Drug Allergy Active Latex Latex Unknown Non Drug Allergy Active ENCOUNTERS from 1932 to 2021-01-16 Encounter Location Date Provider Diagnosis [facility] [address] [phone] [place] [address] Jan, Arben Posadas IMMUNIZATIONS Vaccine Route Administration Date Status Influenza 18 yrs & older Flublok IM Intramuscular Apr 09, 2020 Administered COVID-19 dose #2 given elsewhere Unspecified Unknown Aug Administered Influenza 18 yrs & older Flublok IM Intramuscular Mar 22, 2018 Administered Influenza 18 yrs & older Flublok IM Intramuscular Mar 15, 2019 Administered Influenza 6mo & up Fluzone IM Intramuscular Feb 23, 2011 Admi nistered COVID-19 dose #1 given elsewhere Unspecified Unknown [...] Information RESULTS No Results REASON FOR VISIT medications side effects MEDICAL (GENERAL) HISTORY Type Description Date Medical [...] 1 tablet Orally Once a day October, Next Appt Details Provider Name:Arben Posadas, 2021-02-18 09 :00:00 AM, [address], , [place], [address], Insurance Providers Payer Name Payer Address Payer Phone Insured Name Patient Relati onship to Insured Coverage Start Date Coverage End Date MEDICARE Part A and B [address] [facility] [id number] ALEXANDER SIFUENTES self FOR LIFE [address] [facility] [address] ALEXANDER SIFUENTES [id number]
--- OUTSIDE RECORDS SUMMARY | 2021-04-13 10:40 | CCD ---
Author Author [facility] Organization [facility] Address Unknown Phone Unavailable Care Team Providers Care Automation Analyst Name Role Phone Carissa Posadas MD Unavailable Unavailable Carissa Posadas MD Unavailable Unavailable Carissa Posadas MD Unavailable Unavailable Carissa Posadas MD Unavailable Unavailable Carissa Posadas MD Unavailable Unavailable Carissa Posadas MD Unavailable Unavailable Carissa Posadas MD Unavailable Unavailable Carissa Posadas MD Unavailable Unavailable Carissa Posadas MD Unavailable Unavailable Carissa Posadas MD Unavailable Unavailable Carissa Posadas MD Unavailable Unavailable Carissa Posadas MD Unavailable Unavailable Carissa Posadas MD Unavailable Unavailable Carissa Posadas MD Unavailable Unavailable Carissa Posadas MD Unavailable Unavailable Carissa Posadas MD Unavailable Unavailable Carissa Posadas MD Unavailable Unavailable Carissa Posadas MD Unavailable Unavailable Carissa Posadas MD Unavailable Unavailable Carissa Posadas MD Unavailable Unavailable Carissa Posadas MD Unavailable Unavailable Carissa Posadas MD Unavailable Unavailable Carissa Posadas MD Unavailable Unavailable Carissa Posadas MD Unavailable Unavailable Carissa Posadas MD Unavailable Unavailable Carissa Posadas MD Unavailable Unavailable Carissa Posadas MD Unavailable Unavailable Carissa Posadas MD Unavailable Unavailable Carissa Posadas MD Unavailable Unavailable Carissa Posadas MD Unavailable Unavailable Carissa Posadas MD Unavailable Unavailable Carissa Posadas MD Unavailable Unavailable Carissa Posadas MD Unavailable Unavailable Carissa Posadas MD Unavailable Unavailable Carissa Posadas MD Unavailable Unavailable Carissa Posadas MD Unavailable Unavailable Carissa Posadas MD Unavailable Unavailable Carissa Posadas MD Unavailable Unavailable Carissa Posadas MD Unavailable Unavailable Carissa Posadas MD Unavailable Unavailable Carissa Posadas MD Unavailable Unavailable Carissa Posadas MD Unavailable Unavailable Carissa Posadas MD Unavailable Unavailable Carissa Posadas MD Unavailable Unavailable Carissa Posadas MD Unavailable Unavailable Carissa Posadas MD Unavailable Unavailable Carissa Posadas MD Unavailable Unavailable Carissa Posadas MD Unavailable Unavailable Carissa Posadas MD Unavailable Unavailable Carissa Posadas MD Unavailable Unavailable Carissa Posadas MD Unavailable Unavailable Carissa Posadas MD Unavailable Unavailable Carissa Posadas MD Unavailable Unavailable Carissa Posadas MD Unavailable Unavailable Carissa Posadas MD Unavailable Unavailable Carissa Posadas MD Unavailable Unavailable Carissa Posadas MD Unavailable Unavailable Carissa Posadas MD Unavailable Unavailable Carissa Posadas MD Unavailable Unavailable Carissa Posadas MD Unavailable Unavailable Carissa Posadas MD Unavailable Unavailable Carissa Posadas MD Unavailable Unavailable Carissa Posadas MD Unavailable Unavailable Carissa Posadas MD Unavailable Unavailable Carissa Posadas MD Unavailable Unavailable Carissa Posadas MD Unavailable Unavailable Carissa Posadas MD Unavailable Unavailable Carissa Posadas MD Unavailable Unavailable Carissa Posadas MD Unavailable Unavailable Carissa Posadas MD Unavailable Unavailable Carissa Posadas MD Unavailable Unavailable Carissa Posadas MD Unavailable Unavailable Carissa Posadas MD Unavailable Unavailable Carissa Posadas MD Unavailable [facility]available [facility] Unavailable Unavailable Marky, B Desean DO Unavailable Unavailable Negro, B Desean DO Unavailable Unavailable Negro, B Desean DO Unavailable Unavailable Negro, B Desean DO Unavailable Unavailable Negro, B Desean DO Unavailable Unavailable Negro, B Desean DO Unavailable Unavailable Negro, B Desean DO Unavailable Unavailable Negro, B Desean DO Unavailable Unavailable Negro, B Desean DO Unavailable Unavailable Negro, B Desean DO Unavailable Unavailable Negro, B Desean DO Unavailable Unavailable Negro, B Desean DO Unavailable Unavailable Negro, B Desean DO Unavailable Unavailable Negro, B Desean DO Unavailable Unavailable Negro, B Desean DO Unavailable Unavailable Negro, B Desean DO Unavailable Unavailable SYMENOW, G CHRISTOPHER PA Unavailable Unavailable SYMENOW, G CHRISTOPHER PA Unavailable Unavailable SYMENOW, G CHRISTOPHER PA Unavailable Unavailable SYMENOW, G CHRISTOPHER PA Unavailable Unavailable SYMENOW, G CHRISTOPHER PA Unavailable Unavailable SYMENOW, G CHRISTOPHER PA Unavailable Unavailable SYMENOW, G CHRISTOPHER PA Unavailable Unavailable SYMENOW, G CHRISTOPHER PA Unavailable Unavailable SYMENOW, G CHRISTOPHER PA Unavailable Unavailable SYMENOW, G CHRISTOPHER PA Unavailable Unavailable SYMENOW, Michael CHRISTOPHER PA Unavailable Unavailable SYMENOW, Michael CHRISTOPHER PA Unavailable Unavailable SYMENOW, Michael CHRISTOPHER PA Unavailable Unavailable SYMENOW, Michael CHRISTOPHER PA Unavailable Unavailable SYMENOW, G CHRISTOPHER PA Unavailable Unavailable SYMENOW, Michael CHRISTOPHER PA Unavailable Unavailable Re-disclosure Warning The records that you are about to access may contain information from federally-assisted alcohol or drug abuse programs. If such information is present, then the following federally mandated warning applies: This information has been disclosed to you from records protected by federal confidentiality rules (42 CFR part 2). The federal rules prohibit you from making any further disclosure of this information unless further disclosure is expressly permitted by the written consent of the person to whom it pertains or as otherwise permitted by 42 CFR part 2. A general authorization for the release of medical or other information is NOT sufficient for this purpose. The Federal rules restrict any use of the information to criminally investigate or prosecute any alcohol or drug abuse patient.The records that you are about to access may contain highly sensitive health information, the redisclosure of which is protected by Article 27-F of the [facility] Public Health law. If you continue you may have access to information: Regarding HIV / AIDS; Provided by facilities licensed or operated by the [facility] Office of Mental Health; or Provided by the [facility] Office for People With Developmental Disabilities. If such information is present, then the following [facility] mandated warning applies: This information has been disclosed to you from confidential records which are protected by state law. State law prohibits you from making any further disclosure of this information without the specific written consent of the person to whom it pertains, or as otherwise permitted by law. Any unauthorized further disclosure in violation of state law may result in a fine or longterm sentence or both. A general authorization for the release of medical or other information is NOT sufficient authorization for further disc losure. Encounters Encounter Providers Location Date Indications Data Source(s ) [place] [address] [facility] [address] 04/06/2021 12:00:00 AM EDT eCW1 (Critical access hospital) [place] [address] [facility] [address] 04/03/2021 12:00:00 AM EDT eCW1 ([facility]) Outpatient [address] [facility] [address] 04/02/2021 12:00:00 AM EDT [facility]CW1 [facility] Unknown [address] [facility] [address] 04/02/2021 12:00:00 AM EDT eCW1 ([facility]) Unknown [address] [facility] [address] 04/01/2021 12:00:00 AM EDT eCW1 ([facility]) ([facility]yst[facility]) Urology [address] [place] [address] 03/23/2021 12:00:00 AM EDT eCW1 ([facility]) Outpatient [address] [facility] [address] 03/20/2021 12:00:00 AM EDT eCW1 ([facility]) Outpatient Attender: Desean Negro DOConsultant: Bixby Yuniel [id number] 03/18/2021 09:10:00 AM EDT [facility] Emergency Attender: Desean Deanerrer: Arben Ferrer EMERGENCY ROOM-ER 03/18/2021 07:42:00 AM EDT - 03/18/2021 09:28:00 AM EDT [facility] Patient discharged. [place] [address] [facility] [address] 03/18/2021 12:00:00 AM EDT eCW1 ([facility]) Out[place] [address] [facility] [address] 02/18/2021 12:00:00 AM EDT eCW1 ([facility]) Unknown [address] [facility] [address] 01/22/2021 12:00:00 AM EDT eCW1 ([facility]) Outpatient [address] [facility] [address] 01/20/2021 12:00:00 AM EDT eCW1 ([facility]) Emergency Attender: MICHAEL Cedenoer : Arben Posadas MD EMERGENCY ROOM-ER 01/18/2021 02:23:00 AM EDT - 01/18/2021 04:54:00 AM EDT [facility] Patient discharged. Unknown [address] [facility] [address] 01/15/2021 12:00:00 AM EDT eCW1 ([facility]) Outpatient [address] [facility] [address] 01/14/2021 12:00:00 AM EDT eCW1 ([facility]) Unknown [address] [facility] [address] 01/13/2021 12:00:00 AM EDT eCW1 ([facility]) Outpatient [address] [facility] [address] 10/17/2020 12:00:00 AM EDT eCW1 ([facility]) Unknown [address] [facility] [address] 09/17/2020 12:00:00 AM EDT eCW1 ([facility]) Outpatient [address] [facility] [address] 08/15/2020 12:00:00 AM EST eCW1 ([facility]) Unknown [address] [facility] [address] 08/05/2020 12:00:00 AM EST eCW1 ([facility]) Outpatient [address] [facility] [address] 06/18/2020 12:00:00 AM EST eCW1 ([facility]) Unknown [address] [facility] [address] 06/09/2020 12:00:00 AM EST eCW1 ([facility]) Unknown [address] [facility] [address] 05/18/2020 12:00:00 AM EST eCW1 ([facility]) Unknown [address] [facility] [address] 04/17/2020 12:00:00 AM EST eCW1 (Critical access hospital) Outpatient [address] [facility] [address] 04/09/2020 12:00:00 AM EST eCW1 (Critical access hospital) Unknown [address] [facility] [address] 04/04/2020 12:00:00 AM EDT eCW1 (Critical access hospital) [facility] [address] [facility] [address] 02/21/2020 12:00:00 AM EDT eCW1 (Critical access hospital) Outpatient Attender: Arben Posadas MD 04/05/2018 10:00:00 AM [facility] Immunizations Vaccine Date Status Description Data Source(s) influenza, recombinant, quadrIvalent,injectable, prese rvative free 04/02/2021 11:02:00 AM EDT completed eCW1 ([facility]) influenza, recombinant, quadrIvalent,injectable, prese rvative free 04/02/2021 11:02:00 AM EDT completed eCW1 ([facility]) influenza, recombinant, quadrIvalent,injectable, prese rvative free 04/02/2021 11:02:00 AM EDT completed eCW1 ([facility]) influenza, recombinant, quadrIvalent,injectable, prese rvative free 04/02/2021 11:02:00 AM EDT completed eCW1 ([facility]) COVID-19 dose #2 given elsewhere Unspecified 09/01/2020 07:2 0:00 AM EDT completed eCW1 (Critical access hospital) COVID-19 dose #2 given elsewhere Unspecified 09/01/2020 07:2 0:00 AM EDT completed eCW1 (Critical access hospital) COVID-19 dose #2 given elsewhere Unspecified 09/01/2020 07:2 0:00 AM EDT completed eCW1 (Critical access hospital) COVID-19 dose #2 given elsewhere Unspecified 09/01/2020 07:2 0:00 AM EDT completed eCW1 (Critical access hospital) COVID-19 dose #2 given elsewhere Unspecified 09/01/2020 07:2 0:00 AM EDT completed eCW1 (Critical access hospital) COVID-19 dose #2 given elsewhere Unspecified 09/01/2020 07:2 0:00 AM EDT completed eCW1 (Critical access hospital) COVID-19 dose #2 given elsewhere Unspecified 09/01/2020 07:2 0:00 AM EDT completed eCW1 (Critical access hospital) COVID-19 dose #2 given elsewhere Unspecified 09/01/2020 07:2 0:00 AM EDT completed eCW1 (Critical access hospital) COVID-19 dose #2 given elsewhere Unspecified 09/01/2020 07:2 0:00 AM EDT completed eCW1 (Critical access hospital) COVID-19 dose #2 given elsewhere Unspecified 09/01/2020 07:2 0:00 AM EDT completed eCW1 (Critical access hospital) COVID-19 dose #2 given elsewhere Unspecified 09/01/2020 07:2 0:00 AM EDT completed eCW1 (Critical access hospital) COVID-19 dose #2 given elsewhere Unspecified 09/01/2020 07:2 0:00 AM EDT completed eCW1 (Critical access hospital) COVID-19 dose #2 given elsewhere Unspecified 09/01/2020 07:2 0:00 AM EDT completed eCW1 (Critical access hospital) COVID-19 dose #2 given elsewhere Unspecified 09/01/2020 07:2 0:00 AM EDT completed eCW1 (Critical access hospital) COVID-19 dose #2 given elsewhere Unspecified 09/01/2020 07:2 0:00 AM EDT completed eCW1 (Critical access hospital) COVID-19 VACCINE Moderna 09/01/2020 12:00:00 AM EDT completed [facility] Vaccine Series Complete: YESThis Data wa s Submitted to [facility] Via [employer]. COVID-19 VACCINE, MRNA-1273, LNP-S (MODERNA)/PF 09/01/2020 1 2:00:00 AM EDT completed [facility] COVID-19 dose #1 given elsewhere Unspecified 07/31/2020 08:3 3:00 AM EST completed eCW1 (Critical access hospital) COVID-19 dose #1 given elsewhere Unspecified 07/31/2020 08:3 3:00 AM EST completed eCW1 (Critical access hospital) COVID-19 dose #1 given elsewhere Unspecified 07/31/2020 08:3 3:00 AM EST completed eCW1 (Critical access hospital) COVID-19 dose #1 given elsewhere Unspecified 07/31/2020 08:3 3:00 AM EST completed eCW1 (Critical access hospital) COVID-19 dose #1 given elsewhere Unspecified 07/31/2020 08:3 3:00 AM EST completed eCW1 (Critical access hospital) COVID-19 dose #1 given elsewhere Unspecified 07/31/2020 08:3 3:00 AM EST completed eCW1 (Critical access hospital) COVID-19 dose #1 given elsewhere Unspecified 07/31/2020 08:3 3:00 AM EST completed eCW1 (Critical access hospital) COVID-19 dose #1 given elsewhere Unspecified 07/31/2020 08:3 3:00 AM EST completed eCW1 (Critical access hospital) COVID-19 dose #1 given elsewhere Unspecified 07/31/2020 08:3 3:00 AM EST completed eCW1 (Critical access hospital) COVID-19 dose #1 given elsewhere Unspecified 07/31/2020 08:3 3:00 AM EST completed eCW1 (Critical access hospital) COVID-19 dose #1 given elsewhere Unspecified 07/31/2020 08:3 3:00 AM EST completed eCW1 (Critical access hospital) COVID-19 dose #1 given elsewhere Unspecified 07/31/2020 08:3 3:00 AM EST completed eCW1 (Critical access hospital) COVID-19 dose #1 given elsewhere Unspecified 07/31/2020 08:3 3:00 AM EST completed eCW1 (Critical access hospital) COVID-19 dose #1 given elsewhere Unspecified 07/31/2020 08:3 3:00 AM EST completed eCW1 (Critical access hospital) COVID-19 dose #1 given elsewhere Unspecified 07/31/2020 08:3 3:00 AM EST completed eCW1 (Critical access hospital) COVID-19 dose #1 given elsewhere Unspecified 07/31/2020 08:3 3:00 AM EST completed eCW1 (Critical access hospital) COVID-19 dose #1 given elsewhere Unspecified 07/31/2020 08:3 3:00 AM EST completed eCW1 (Critical access hospital) COVID-19 VACCINE, MRNA-1273, LNP-S (MODERNA)/PF 07/31/2020 1 2:00:00 AM EST completed [facility] influenza, recombinant, quadrIvalent,injectable, prese rvative free 04/09/2020 08:55:00 AM EST completed eCW1 ([facility]) influenza, recombinant, quadrIvalent,injectable, prese rvative free 04/09/2020 08:55:00 AM EST completed eCW1 ([facility]) influenza, recombinant, quadrIvalent,injectable, prese rvative free 04/09/2020 08:55:00 AM EST completed eCW1 ([facility]) influenza, recombinant, quadrIvalent,injectable, prese rvative free 04/09/2020 08:55:00 AM EST completed eCW1 ([facility]) influenza, recombinant, quadrIvalent,injectable, prese rvative free 04/09/2020 08:55:00 AM EST completed eCW1 ([facility]) influenza, recombinant, quadrIvalent,injectable, prese rvative free 04/09/2020 08:55:00 AM EST completed eCW1 ([facility]) influenza, recombinant, quadrIvalent,injectable, prese rvative free 04/09/2020 08:55:00 AM EST completed eCW1 ([facility]) influenza, recombinant, quadrIvalent,injectable, prese rvative free 04/09/2020 08:55:00 AM EST completed eCW1 ([facility]) influenza, recombinant, quadrIvalent,injectable, prese rvative free 04/09/2020 08:55:00 AM EST completed eCW1 ([facility]) influenza, recombinant, quadrIvalent,injectable, prese rvative free 04/09/2020 08:55:00 AM EST completed eCW1 ([facility]) influenza, recombinant, quadrIvalent,injectable, prese rvative free 04/09/2020 08:55:00 AM EST completed eCW1 ([facility]) influenza, recombinant, quadrIvalent,injectable, prese rvative free 04/09/2020 08:55:00 AM EST completed eCW1 ([facility]) influenza, recombinant, quadrIvalent,injectable, prese rvative free 04/09/2020 08:55:00 AM EST completed eCW1 ([facility]) influenza, recombinant, quadrIvalent,injectable, prese rvative free 04/09/2020 08:55:00 AM EST completed eCW1 ([facility]) influenza, recombinant, quadrIvalent,injectable, prese rvative free 04/09/2020 08:55:00 AM EST completed eCW1 ([facility]) influenza, recombinant, quadrIvalent,injectable, prese rvative free 04/09/2020 08:55:00 AM EST completed eCW1 ([facility]) influenza, recombinant, quadrIvalent,injectable, prese rvative free 04/09/2020 08:55:00 AM EST completed eCW1 ([facility]) influenza, recombinant, quadrIvalent,injectable, prese rvative free 04/09/2020 08:55:00 AM EST completed eCW1 ([facility]) influenza, recombinant, quadrIvalent,injectable, prese rvative free 04/09/2020 08:55:00 AM EST completed eCW1 ([facility]) influenza, recombinant, quadrIvalent,injectable, prese rvative free 04/09/2020 08:55:00 AM EST completed eCW1 ([facility]) influenza, recombinant, quadrIvalent,injectable, prese rvative free 04/09/2020 08:55:00 AM EST completed eCW1 ([facility]) influenza, recombinant, quadrIvalent,injectable, prese rvative free 04/09/2020 08:55:00 AM EST completed eCW1 ([facility]) influenza, recombinant, quadrIvalent,injectable, prese rvative free 04/09/2020 08:55:00 AM EST completed eCW1 ([facility]) Medications Medication Brand Name Start Date Product Form Dose Route Admi nistrative Instructions Pharmacy Instructions Status Indications Reaction Description Data Source(s) Sulfamethoxazole 800 MG / Trimethoprim 1 60 MG Oral Tablet [Bactrim] Bactrim DS 800-160 MG Bactrim DS 800-160 MG 04/06/2021 12:00:00 AM EDT 1.0 {table t} active Bactrim DS 800-160 MG eCW1 ( [facility]) 800-160 mg 04/06/2021 12:00:00 AM EDT tablet 20 TAKE ONE TABLET BY MOUTH TWICE A DAY FOR 10 DAYS TAKE ONE TABLET BY MOUTH TWICE A DAY FOR 10 DAYS SOLD: 04/06/2021 [facility] Sulfamethoxazole 800 MG / Trimethoprim 1 60 MG Oral Tablet [Bactrim] Bactrim DS 800-160 MG Bactrim DS 800-160 MG 04/06/2021 12:00:00 AM EDT 1.0 {table t} active Bactrim DS 800-160 MG eCW1 ( [facility]) Walker - Walker - 04/03/2021 12:00:00 AM EDT activ e Walker - eCW1 ([facility]) Walker - Walker - 04/03/2021 12:00:00 AM EDT activ e Walker - eCW1 ([facility]) Walker - Walker - 04/03/2021 12:00:00 AM EDT activ e Walker - eCW1 ([facility]) Cephalexin 500 MG Oral Capsule CEPHALEXIN 03/18/2021 12:00:00 AM EDT capsule 14 TAKE ONE CAPSULE BY MOUTH TWICE A DAY TAKE ONE CAPSULE BY MO UT TWICE A DAY SOLD: 03/18/2021 [facility] Lidocaine Hydrochloride 40 MG/ML Topical Cream Lidocai ne HCl 4 % Lidocaine HCl 4 % 02/18/2021 12:00:00 AM EDT 1.0 {application} active Lidocaine HCl 4 % eCW1 ([facility]) Lidocaine Hydrochloride 40 MG/ML Topical Cream Lidocai ne HCl 4 % Lidocaine HCl 4 % 02/18/2021 12:00:00 AM EDT 1.0 {application} active Lidocaine HCl 4 % eCW1 ([facility]) Lidocaine Hydrochloride 40 MG/ML Topical Cream Lidocai ne HCl 4 % Lidocaine HCl 4 % 02/18/2021 12:00:00 AM EDT 1.0 {application} active Lidocaine HCl 4 % eCW1 ([facility]) Lidocaine Hydrochloride 40 MG/ML Topical Cream Lidocai ne HCl 4 % Lidocaine HCl 4 % 02/18/2021 12:00:00 AM EDT 1.0 {application} active Lidocaine HCl 4 % eCW1 ([facility]) Lidocaine Hydrochloride 40 MG/ML Topical Cream Lidocai ne HCl 4 % Lidocaine HCl 4 % 02/18/2021 12:00:00 AM EDT 1.0 {application} active Lidocaine HCl 4 % eCW1 ([facility]) Lidocaine Hydrochloride 40 MG/ML Topical Cream Lidocai ne HCl 4 % Lidocaine HCl 4 % 02/18/2021 12:00:00 AM EDT 1.0 {application} active Lidocaine HCl 4 % eCW1 ([facility]) Lidocaine Hydrochloride 40 MG/ML Topical Cream Lidocai ne HCl 4 % Lidocaine HCl 4 % 02/18/2021 12:00:00 AM EDT 1.0 {application} active Lidocaine HCl 4 % eCW1 ([facility]) Lidocaine Hydrochloride 40 MG/ML Topical Cream Lidocai ne HCl 4 % Lidocaine HCl 4 % 02/18/2021 12:00:00 AM EDT 1.0 {application} active Lidocaine HCl 4 % eCW1 ([facility]) Lidocaine Hydrochloride 40 MG/ML Topical Cream Lidocai ne HCl 4 % Lidocaine HCl 4 % 02/18/2021 12:00:00 AM EDT 1.0 {application} active Lidocaine HCl 4 % eCW1 ([facility]) buspirone hydrochloride 5 MG Oral Tablet busPIRone HCl 5 MG busPIRone HCl 5 MG 01/14/2021 12:00:00 AM EDT 1.0 {tablet} active busPIRone HCl 5 MG eCW1 ([facility]) buspirone hydrochloride 5 MG Oral Tablet busPIRone HCl 5 MG busPIRone HCl 5 MG 01/14/2021 12:00:00 AM EDT 1.0 {tablet} suspende d busPIRone HCl 5 MG eCW1 ([facility]) Diclofenac Sodium 0.01 MG/MG Topical Gel [Voltaren] Voltaren 1 % Voltaren 1 % 01/14/2021 12:00:00 AM EDT active Voltaren 1 % eCW1 ([facility]) Diclofenac Sodium 0.01 MG/MG Topical Gel [Voltaren] Voltaren 1 % Voltaren 1 % 01/14/2021 12:00:00 AM EDT suspended Voltaren 1 % eCW1 ([facility]) buspirone hydrochloride 5 MG Oral Tablet busPIRone HCl 5 MG busPIRone HCl 5 MG 01/14/2021 12:00:00 AM EDT 1.0 {tablet} active busPIRone HCl 5 MG eCW1 ([facility]) buspirone hydrochloride 5 MG Oral Tablet busPIRone HCl 5 MG busPIRone HCl 5 MG 01/14/2021 12:00:00 AM EDT 1.0 {tablet} suspende d busPIRone HCl 5 MG eCW1 ([facility]) Diclofenac Sodium 0.01 MG/MG Topical Gel [Voltaren] Voltaren 1 % Voltaren 1 % 01/14/2021 12:00:00 AM EDT suspended Voltaren 1 % eCW1 ([facility]) buspirone hydrochloride 5 MG Oral Tablet busPIRone HCl 5 MG busPIRone HCl 5 MG 01/14/2021 12:00:00 AM EDT 1.0 {tablet} suspende d busPIRone HCl 5 MG eCW1 ([facility]) Diclofenac Sodium 0.01 MG/MG Topical Gel [Voltaren] Voltaren 1 % Voltaren 1 % 01/14/2021 12:00:00 AM EDT suspended Voltaren 1 % eCW1 ([facility]) buspirone hydrochloride 5 MG Oral Tablet busPIRone HCl 5 MG busPIRone HCl 5 MG 01/14/2021 12:00:00 AM EDT 1.0 {tablet} suspende d busPIRone HCl 5 MG eCW1 ([facility]) Diclofenac Sodium 0.01 MG/MG Topical Gel [Voltaren] Voltaren 1 % Voltaren 1 % 01/14/2021 12:00:00 AM EDT suspended Voltaren 1 % eCW1 ([facility]) buspirone hydrochloride 5 MG Oral Tablet busPIRone HCl 5 MG busPIRone HCl 5 MG 01/14/2021 12:00:00 AM EDT 1.0 {tablet} suspende d busPIRone HCl 5 MG eCW1 ([facility]) buspirone hydrochloride 5 MG Oral Tablet busPIRone HCl 5 MG busPIRone HCl 5 MG 01/14/2021 12:00:00 AM EDT 1.0 {tablet} suspende d busPIRone HCl 5 MG eCW1 ([facility]) Diclofenac Sodium 0.01 MG/MG Topical Gel [Voltaren] Voltaren 1 % Voltaren 1 % 01/14/2021 12:00:00 AM EDT suspended Voltaren 1 % eCW1 ([facility]) Diclofenac Sodium 0.01 MG/MG Topical Gel [Voltaren] Voltaren 1 % Voltaren 1 % 01/14/2021 12:00:00 AM EDT suspended Voltaren 1 % eCW1 ([facility]) 1 % 01/14/2021 12:00:00 AM EDT gel 100 APPLY 4 GRAMS TOPICALLY TO RIGHT HIP FOUR TIMES A DAY APPLY 4 GRAMS TOPICALLY TO RIGHT HIP FOUR TIMES A DAY SOLD: 01/15/2021 [facility] buspirone hydrochloride 5 MG Oral Tablet busPIRone HCl 5 MG busPIRone HCl 5 MG 01/14/2021 12:00:00 AM EDT 1.0 {tablet} suspende d busPIRone HCl 5 MG eCW1 ([facility]) Diclofenac Sodium 0.01 MG/MG Topical Gel [Voltaren] Voltaren 1 % Voltaren 1 % 01/14/2021 12:00:00 AM EDT active Voltaren 1 % eCW1 ([facility]) buspirone hydrochloride 5 MG Oral Tablet BUSPIRONE HCL 01/14/2021 12:00:00 AM EDT tablet 60 TAKE ONE TABLET BY MOUTH TWI CE A DAY TAKE ONE TABLET BY MOUTH TWICE A DAY SOLD: 01/15/2021 [facility] Diclofenac Sodium 0.01 MG/MG Topical Gel [Voltaren] Voltaren 1 % Voltaren 1 % 01/14/2021 12:00:00 AM EDT suspended Voltaren 1 % eCW1 ([facility]) 60 mg 12/05/2020 12:00:00 AM EDT capsule,extended releas e 24 hr 30 TAKE ONE CAPSULE BY MOUTH EVERY DAY TAKE ONE CAPSULE BY MOUTH EVERY DAY SOLD: 04/06/2021 [facility] 60 mg 12/05/2020 12:00:00 AM EDT capsule,extended releas e 24 hr 30 TAKE ONE CAPSULE BY MOUTH EVERY DAY TAKE ONE CAPSULE BY MOUTH EVERY DAY SOLD: 01/07/2021 [facility] 60 mg 12/05/2020 12:00:00 AM EDT capsule,extended releas e 24 hr 30 TAKE ONE CAPSULE BY MOUTH EVERY DAY TAKE ONE CAPSULE BY MOUTH EVERY DAY SOLD: 12/08/2020 [facility] 60 mg 12/05/2020 12:00:00 AM EDT capsule,extended releas e 24 hr 30 TAKE ONE CAPSULE BY MOUTH EVERY DAY TAKE ONE CAPSULE BY MOUTH EVERY DAY SOLD: 02/05/2021 [facility] 60 mg 12/05/2020 12:00:00 AM EDT capsule,extended releas e 24 hr 30 TAKE ONE CAPSULE BY MOUTH EVERY DAY TAKE ONE CAPSULE BY MOUTH EVERY DAY SOLD: 03/06/2021 [facility] Amlodipine 2.5 MG Oral Tablet amLODIPine Besylate 2.5 MG amLODIPine Besylate 2.5 MG 10/17/2020 12:00:00 AM EDT 1.0 {tablet} activ e amLODIPine Besylate 2.5 MG eCW1 ([facility]) Amlodipine 2.5 MG Oral Tablet amLODIPine Besylate 2.5 MG amLODIPine Besylate 2.5 MG 10/17/2020 12:00:00 AM EDT 1.0 {tablet} activ e amLODIPine Besylate 2.5 MG eCW1 ([facility]) 2.5 mg 10/17/2020 12:00:00 AM EDT tablet 90 TAKE ONE TABLET BY MOUTH EVERY DAY TAKE ONE TABLET BY MOUTH EVERY DAY SOLD: 01/15/2021 [facility] Amlodipine 2.5 MG Oral Tablet AmLODIPine Besylate 2.5 MG AmLODIPine Besylate 2.5 MG 10/17/2020 12:00:00 AM EDT 1.0 {tablet} activ e AmLODIPine Besylate 2.5 MG eCW1 ([facility]) Amlodipine 2.5 MG Oral Tablet amLODIPine Besylate 2.5 MG amLODIPine Besylate 2.5 MG 10/17/2020 12:00:00 AM EDT 1.0 {tablet} activ e amLODIPine Besylate 2.5 MG eCW1 ([facility]) Amlodipine 2.5 MG Oral Tablet amLODIPine Besylate 2.5 MG amLODIPine Besylate 2.5 MG 10/17/2020 12:00:00 AM EDT 1.0 {tablet} activ e amLODIPine Besylate 2.5 MG eCW1 ([facility]) Amlodipine 2.5 MG Oral Tablet amLODIPine Besylate 2.5 MG amLODIPine Besylate 2.5 MG 10/17/2020 12:00:00 AM EDT 1.0 {tablet} activ e amLODIPine Besylate 2.5 MG eCW1 ([facility]) Amlodipine 2.5 MG Oral Tablet amLODIPine Besylate 2.5 MG amLODIPine Besylate 2.5 MG 10/17/2020 12:00:00 AM EDT 1.0 {tablet} activ e amLODIPine Besylate 2.5 MG eCW1 ([facility]) Amlodipine 2.5 MG Oral Tablet AMLODIPINE BESYLATE 10/17/2020 12: 00:00 AM EDT tablet 90 TAKE ONE TABLET BY MOUTH EVERY D AY TAKE ONE TABLET BY MOUTH EVERY DAY SOLD: 10/19/2020 [facility] 5 mg 09/25/2020 12:00:00 AM EDT tablet 90 TAKE ONE TABLET BY MOUTH EVERY DAY TAKE ONE TABLET BY MOUTH EVERY DAY SOLD: 09/27/2020 [facility] Imipramine Hydrochloride 10 MG Oral Tablet IMIPRAMINE HCL 09/03/2020 12:00:00 AM EDT tablet 180 TAKE TWO TABLETS BY MOUTH EV DONAVAN DAY TAKE TWO TABLETS BY MOUTH EVERY DAY SOLD: 03/04/2021 [facility] 10 mg 09/03/2020 12:00:00 AM EDT tablet 180 TAKE TWO TABLETS BY MOUTH EVERY DAY TAKE TWO TABLETS BY MOUTH EVERY DAY SOLD: 12/04/2020 [facility] 10 mg 09/03/2020 12:00:00 AM EDT tablet 180 TAKE TWO TABLETS BY MOUTH EVERY DAY TAKE TWO TABLETS BY MOUTH EVERY DAY SOLD: 09/05/2020 [facility] 60 mg 06/18/2020 12:00:00 AM EST capsule,extended releas e 24 hr 30 TAKE ONE CAPSULE BY MOUTH EVERY DAY TAKE ONE CAPSULE BY MOUTH EVERY DAY SOLD: 09/10/2020 [facility] 60 mg 06/18/2020 12:00:00 AM EST capsule,extended releas e 24 hr 30 TAKE ONE CAPSULE BY MOUTH EVERY DAY TAKE ONE CAPSULE BY MOUTH EVERY DAY SOLD: 11/07/2020 [facility] 60 mg 06/18/2020 12:00:00 AM EST capsule,extended releas e 24 hr 30 TAKE ONE CAPSULE BY MOUTH EVERY DAY TAKE ONE CAPSULE BY MOUTH EVERY DAY SOLD: 07/13/2020 [facility] 24 HR Propranolol Hydrochloride 60 MG Ex tended Release Oral Capsule Propranolol HCl ER 60 MG Propranolol HCl ER 60 MG 06/18/2020 12:00:00 AM EST 1.0 {capsule} active Propranolol HCl ER 60 MG eCW1 ([facility]) 60 mg 06/18/2020 12:00:00 AM EST capsule,extended releas e 24 hr 30 TAKE ONE CAPSULE BY MOUTH EVERY DAY TAKE ONE CAPSULE BY MOUTH EVERY DAY SOLD: 06/19/2020 [facility] 24 HR Propranolol Hydrochloride 60 MG Ex tended Release Oral Capsule Propranolol HCl ER 60 MG Propranolol HCl ER 60 MG 06/18/2020 12:00:00 AM EST 1.0 {capsule} active Propranolol HCl ER 60 MG eCW1 ([facility]) 24 HR Propranolol Hydrochloride 60 MG Ex tended Release Oral Capsule Propranolol HCl ER 60 MG Propranolol HCl ER 60 MG 06/18/2020 12:00:00 AM EST 1.0 {capsule} active Propranolol HCl ER 60 MG eCW1 ([facility]) 60 mg 06/18/2020 12:00:00 AM EST capsule,extended releas e 24 hr 30 TAKE ONE CAPSULE BY MOUTH EVERY DAY TAKE ONE CAPSULE BY MOUTH EVERY DAY SOLD: 10/09/2020 [facility] 60 mg 06/18/2020 12:00:00 AM EST capsule,extended releas e 24 hr 30 TAKE ONE CAPSULE BY MOUTH EVERY DAY TAKE ONE CAPSULE BY MOUTH EVERY DAY SOLD: 08/12/2020 [facility] 24 HR Propranolol Hydrochloride 60 MG Ex tended Release Oral Capsule Propranolol HCl ER 60 MG Propranolol HCl ER 60 MG 06/18/2020 12:00:00 AM EST 1.0 {capsule} active Propranolol HCl ER 60 MG eCW1 ([facility]) 24 HR Propranolol Hydrochloride 60 MG Ex tended Release Oral Capsule Propranolol HCl ER 60 MG Propranolol HCl ER 60 MG 06/18/2020 12:00:00 AM EST 1.0 {capsule} active Propranolol HCl ER 60 MG eCW1 ([facility]) 80 mg 06/10/2020 12:00:00 AM EST capsule,extended releas e 24 hr 90 TAKE ONE CAPSULE BY MOUTH EVERY DAY TAKE ONE CAPSULE BY MOUTH EVERY DAY SOLD: 06/11/2020 [facility] 20 mg 04/17/2020 12:00:00 AM EST tablet 90 TAKE ONE TABLET BY MOUTH EVERY DAY WITH A MEAL TAKE ONE TABLET BY MOUTH EVERY DAY WITH A MEAL SOLD: [facility] 20 mg 04/17/2020 12:00:00 AM EST tablet 90 TAKE ONE TABLET BY MOUTH EVERY DAY WITH A MEAL TAKE ONE TABLET BY MOUTH EVERY DAY WITH A MEAL SOLD: [facility] 20 mg 04/17/2020 12:00:00 AM EST tablet 90 TAKE ONE TABLET BY MOUTH EVERY DAY WITH A MEAL TAKE ONE TABLET BY MOUTH EVERY DAY WITH A MEAL SOLD: [facility] 20 mg 04/17/2020 12:00:00 AM EST tablet 90 TAKE ONE TABLET BY MOUTH EVERY DAY WITH A MEAL TAKE ONE TABLET BY MOUTH EVERY DAY WITH A MEAL SOLD: [facility] 80 mg 03/06/2020 12:00:00 AM EDT capsule,extended releas e 24 hr 90 TAKE ONE CAPSULE BY MOUTH EVERY DAY TAKE ONE CAPSULE BY MOUTH EVERY DAY SOLD: 03/07/2020 [facility] 5 mg 10/01/2019 12:00:00 AM EDT tablet 90 TAKE ONE TABLET BY MOUTH EVERY DAY TAKE ONE TABLET BY MOUTH EVERY DAY SOLD: 03/31/2020 [facility] 5 mg 10/01/2019 12:00:00 AM EDT tablet 90 TAKE ONE TABLET BY MOUTH EVERY DAY TAKE ONE TABLET BY MOUTH EVERY DAY SOLD: 06/29/2020 [facility] 20 mg 09/12/2019 12:00:00 AM EDT tablet 30 TAKE ONE TABLET BY MOUTH EVERY DAY WITH A MEAL TAKE ONE TABLET BY MOUTH EVERY DAY WITH A MEAL SOLD: [facility] 20 mg 09/12/2019 12:00:00 AM EDT tablet 30 TAKE ONE TABLET BY MOUTH EVERY DAY WITH A MEAL TAKE ONE TABLET BY MOUTH EVERY DAY WITH A MEAL SOLD: [facility] 10 mg 09/10/2019 12:00:00 AM EDT tablet 180 TAKE TWO TABLETS BY MOUTH EVERY DAY TAKE TWO TABLETS BY MOUTH EVERY DAY SOLD: 03/11/2020 [facility] 10 mg 09/10/2019 12:00:00 AM EDT tablet 180 TAKE TWO TABLETS BY MOUTH EVERY DAY TAKE TWO TABLETS BY MOUTH EVERY DAY SOLD: 06/08/2020 [facility] Insurance Providers Payer name Policy type / Coverage type Policy ID Covered green party ID Covered green party's relationship to hall Policy Hall Plan Information [employer] [id number] S [id number] [employer] [id number] S [id number] [place] [id number] S [id number] [place] [id number] S [id number] [facility] [id number] SPO [id number] [facility] [id number] SPO [id number] MEDICARE [id number] SP [id number] [facility] [id number] [facility] [place] [id number] [employer] [id number] S [id number] [place] [id number] S [id number] ANSI-Commercial [id number] ANSI-Medicare Part B [id number] ANSI-Medicare Part B [id number] ANSI-Commercial [id number] MEDICARE [id number] SP [id number] B FOR LIFE O [id number] S [id number] MEDICARE C [id number] S [id number] B [place] [id number] S [id number] FOR LIFE [id number] ANSI-Medicare Part B [id number] ANSI-Commercial [id number] ANSI-Medicare Part B [id number] ANSI-Commercial [id number] [employer] [id number] S [id number] Problems, Conditions, and Diagnoses Code Display Name Description Problem Type Effective Dates Data Source(s) Z87.891 Personal history of nicotine dependence PERSONAL HISTORY OF NICOTINE DEPENDENCE Diagnosis 03/18/2021 07:42:00 AM [facility] 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 Diagnosis 03/18/2021 07:42:00 AM [facility] [place] 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), and cerebral infarction without residual deficits PRSNL HX OF TIA (TIA), AND CEREB INFRC W /O RESID D Diagnosis 03/18/2021 07:42:00 AM [facility] Z79.899 Other retirement (current) drug therapy O THER MCFP (CURRENT) DRUG THERAPY Diagnosis 03/18/2021 07:42:00 AM [facility] 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 Diagnosis 03/18/2021 07:42:00 AM [facility] [place] E78.00 PURE HYPERCHOLESTEROLEMIA, UNSPECIFIED P URE HYPERCHOLESTEROLEMIA, UNSPECIFIED Diagnosis 03/18/2021 07:42:00 AM [facility] I10 Essential (primary) hypertension ESSENTIAL (PRIMARY) H YPERTENSION Diagnosis 03/18/2021 07:42:00 AM [facility] [place] N95.0 Postmenopausal bleeding POSTMENOPAUSAL BLEEDING Diagno sis 03/18/2021 07:42:00 AM [facility] [place] N93.9 Abnormal uterine and vaginal bleeding, u nspecified ABNORMAL UTERINE AND VAGINAL BLEEDING, UNSPECIFIED Diagnosis 03/18/2021 07:42:00 AM [facility] Y93.89 Activity, other specified ACTIVITY, OTHER SPECIFIED Di agnosis 01/18/2021 02:23:00 AM [facility] [place] Y92.[address] the place of o ccurrence of the external cause OTH PLACES THE PLACE OF OCCURRENCE OF THE EXTER Diagnosis 02:23:00 AM [facility] [place] T43.595A Adverse effect of other anti psychotics and neuroleptics, initial encounter ADVERSE EFFECT OF OTH ANTIPSYCHOTICS AND NEUROLEPT Diagnosis 01/18/2021 02:23:00 AM [facility] [place] F41.9 Anxiety disorder, unspecified ANXIETY DISORDER, UNSPEC IFIED Diagnosis 01/18/2021 02:23:00 AM [facility] [place] Z01.818 Pre-procedure evaluation check Preop testing Problem 03/23/2021 12:00:00 AM EDT eCW1 ([facility]) R31.0 Gross hematuria Gross hematuria Problem 03/23/2021 12:0 0:00 AM EDT eCW1 ([facility]) N39.0 Urinary tract infectious disease UTI (urinary tract in fection) Problem 03/23/2021 12:00:00 AM EDT eCW1 ([facility]) N32.89 Bladder mass Bladder mass Problem 03/18/2021 12:00:00 A M EDT eCW1 ([facility]) N18.4 [id number] Stage 4 chronic kidney disease Problem 08/15/2020 12:00:00 AM EST eCW1 ([facility]) R44.2 Hallucinations Hallucination, hypnopompic Problem 06/18/2020 12:00:00 AM EST eCW1 ([facility]) I12.9 [id number] Hypertensive chronic kidney disease with stage 1 through stage 4 chronic kidney disease, or unspecified chronic kidney disease Problem 06/18/2020 12:00:00 AM EST eCW1 ([facility]) I12.9 [id number] Hypertensive kidney disease Problem 05/18/20 20 12:00:00 AM EST eCW1 ([facility]) O10.211 [id number] Hypertensive kidney disease affecting in first trimester Problem 05/18/2020 12:00:00 AM EST eCW1 ([facility]) Surgeries/Procedures Procedure Description Date Indications Data Source(s) PC-INTERPRETATION AND REPORT 04/02/2021 12:00:00 AM ED T eCW1 ([facility]) FC-ELECTROCARDIOGRAM, TRACING ONLY 04/02/2021 12:00:00 AM EDT eCW1 ([facility]) Imm: Flublok Quadrivalent 18 years & older 0.5mL IM Influenz a 04/02/2021 12:00:00 AM EDT eCW1 [facility] Med: Lidocaine Jelly 2% 6ml Intravesically (Glydo) 03/23/2021 12:00:00 AM EDT eCW1 ([facility]) Immunization: Flublok Quadrivalent (18 years & older) 0.5mL IM (Influenza) 04/09/2020 12:00:00 AM EST eCW1 ([facility]) Results ID Date Data Source FREE T4 & TSH PANEL 04/02/2021 12:00:00 AM EDT eCW1 ([facility]) Name Value Range Interpretation Code Description Data Anabell rce(s) Supporting Document(s) 4.100 0.358-3.740 THYROID STIMULATING HORM ONE eCW1 ([facility]) 1.42 0.76-1.46 FREE T4 eCW1 ([facility]) ID Date Data Source Comprehensive Metabolic Profile (CMP) 04/02/2021 12:00:00 AM EDT eCW1 ([facility]) Name Value Range Interpretation Code Description Data Anabell rce(s) Supporting Document(s) 1.53 0.55-1.30 CREATININE FOR GFR eCW1 ([facility]) 100 70-100 GLUCOSE, FASTING eCW1 ([facility]) 24 7-18 BLOOD UREA NITROGEN eCW1 ([facility]) 34.1 >32 GLOMERULAR FILTRATION RATE eCW 1 ([facility]) 6.1 3.5-5.1 POTASSIUM SERUM eCW1 ([facility]) 108 98-107 CHLORIDE LEVEL eCW1 ([facility]) 136 136-145 SODIUM LEVEL eCW1 ([facility]) 9.4 8.8-10.2 CALCIUM LEVEL eCW1 ([facility]) 26 21-32 CARBON DIOXIDE LEVEL eCW1 ([facility]) 16 12-78 ALT/SGPT eCW1 ([facility]) 21 7-37 AST/SGOT eCW1 ([facility]) 7.3 6.4-8.2 TOTAL PROTEIN eCW1 ([facility]) 199 45-117 ALKALINE PHOSPHATASE eCW1 ([facility]) 0.5 0.2-1.0 BILIRUBIN,TOTAL eCW1 ([facility]) 3.5 3.2-5.2 ALBUMIN eCW1 ([facility]) 0.9 1.2-2.2 ALBUMIN/GLOBULIN RATIO eCW1 ([facility]) ID Date Data Source [id number] 03/18/2021 09:58:00 AM EDT [facility] Patient: ALEXANDER SIFUENTES Observat ion Report - [facility].VisitID: [id number] [place] [address] [phone], FRegistration Date/Time: 03/18/2021 06:41 Weight:40.8 kg (S). Height/Length:62 inches (S). BMI:16.5 PAST HISTORYMedications:Imipramine HCl Oral (Tablet 10 mg) 2 tablets, daily at bedtime, last dose 03/17/2021 in bedtime.amLODIPine Besylate Oral (Tablet 2.5 mg) 1 tablet, daily, last dose 03/17/2021.Lovastatin Oral (Tablet 20 mg) 1 tablet, daily every PM, last dose 03/17/2021 in pm.Propranolol HCl ER Oral (Ca psule Extended Release 24 Hour 60 mg) 1 capsule, daily.Aspirin Adult Low Dose Oral (Tablet Delayed Release 81 mg), daily, last dose 03/17/2021. Allergies:Buspar. (HTN and confusion). FAMILY HISTORYNo significant family medical history. (Electronically signed by Desean Negro DO 03/18/2021 09:23) Name Value Range Interpretation Code Description Data Anabell rce(s) Supporting Document(s) ID Date Data Source [id number] 03/18/2021 08:53:00 AM EDT [facility] DATE OF EXAMINATION: 03/18/2021 6:57 EDT BLADDER ONLY HISTORY: Bleeding. Frequency. Real-time ultrasound imaging was performed utilizing B-mode/griffin scale and colorDoppler imaging where applicable. FINDINGS: There is a complex 6.5 x 7 x 4 cm soft tissue mass within the bladder consistentwith neoplasm. Congealed blood clot can appear in this manner but is lesslikely. IMPRESSION: Large bladder mass consistent with neoplasm. Congealed hematoma is less likely. Electronically signed in PS360 by: Litzy Mccarty M.D. 03/18/2021 8:48 EDT Name Value Range Interpretation Code Description Data Anabell rce(s) Supporting Document(s) ID Date Data Source [id number] 03/20/2021 12:39:00 PM [facility]T [facility] Name Value Range Interpretation Code Description Data Anabell rce(s) Supporting Document(s) ORGANISM [facility] COLONY COUNT N [facility] ID Date Data Source [id number] 03/18/2021 08:24:00 AM EDT [facility] TSYSORDER [id number] Name Value Range Interpretation Code Description Data Anabell rce(s) Supporting Document(s) URINE RBC TNTC /hpf 0-3 H [facility] URINE WBC 5-10 /hpf 0-5 H [facility] URINE EPITHELIAL CELLS NONE SEEN /hpf 0 [facility] URINE BACTERIA 1+ NONE SEEN [facility] ID Date Data Source [id number] [id number] 03/18/2021 08:22:[address] [facility] ital TSYSORDER [id number] Name Value Range Interpretation Code Description Data Anabell rce(s) Supporting Document(s) URINE COLOR. RED [facility] URINE APPEARANCE TURBID [facility] l URINE GLUCOSE (UA) NEGATIVE mg/dL NEGATIVE [facility] URINE BILIRUBIN NEGATIVE NEGATIVE [facility] URINE KETONE NEGATIVE mg/dL [facility] SPECIFIC GRAVITY,URINE 1.025 1.005-1.030 [facility] URINE BLOOD 3+(LARGE) NEGATIVE [facility] PH,URINE 8.5 5.0-9.0 [facility] URINE PROTEIN 4+(>=300) mg/dL NEGATIVE [facility] ital URINE UROBILINOGEN NORMAL(0.2-1) mg/dL 0-1 [facility] URINE NITRATE NEGATIVE NEGATIVE [facility] URINE LEUKOCYTE ESTERASE 1+(SMALL) NEGATIVE [facility] ID Date Data Source [id number] 03/18/2021 07:57:00 AM EDT [facility] l TSYSORDER [id number] Name Value Range Interpretation Code Description Data Anabell rce(s) Supporting Document(s) FREE T4 1.46 ng/dL 0.76-1.46 [facility] ID Date Data Source [id number] 03/18/2021 07:57:00 AM EDT [facility] l TSYSORDER [id number] Name Value Range Interpretation Code Description Data Anabell rce(s) Supporting Document(s) TSH 6.404 uIU/mL 0.358-3.74 H [facility] ID Date Data Source [id number] 03/18/2021 07:41:00 AM EDT [facility] l TSYSORDER [id number] Name Value Range Interpretation Code Description Data Anabell rce(s) Supporting Document(s) PARTIAL THROMBOPLASTIN TIME 24.5 SECONDS 21.2-27.3 [facility] ID Date Data Source [id number] 03/18/2021 07:41:00 AM EDT [facility] l TSYSORDER [id number] Name Value Range Interpretation Code Description Data Anabell rce(s) Supporting Document(s) PROTHROMBIN TIME (PATIENT) 9.6 SECONDS 9.1-11.6 [facility] INR 0.92 0.87-1.06 [facility] ID Date Data Source [id number] 03/18/2021 07:36:00 AM EDT [facility] l TSYSORDER [id number] Name Value Range Interpretation Code Description Data Anabell rce(s) Supporting Document(s) MAGNESIUM 2.2 mg/dL 1.8-2.4 [facility] ID Date Data Source [id number] 03/18/2021 07:36:00 AM EDT [facility] l TSYSORDER [id number] Name Value Range Interpretation Code Description Data Anabell rce(s) Supporting Document(s) GLUCOSE 112 mg/dL 74-106 H [facility] BLOOD UREA NITROGEN 19 mg/dL 7-[address] [facility] ital CREATININE 1.57 mg/dL 0.6-1.0 H [facility] SODIUM 138 mmol/L 136-145 [facility] POTASSIUM 4.8 mmol/L 3.5-5.1 [facility] CHLORIDE 102 mmol/L 98-107 [facility] CO2 30 mmol/L 21-32 [facility] CALCIUM 9.5 mg/dL 8.5-10.1 [facility] ANION GAP 6.0 mmol/L 5-12 [facility] GLOMERULAR FILTRATION RATE 31 mL/min [facility] GFR IS CALCULATED IN mL/min/1.73m2 MIKE L FUNCTION: >90MILDLY DECREASED: 60-89MILDY TO MODERATELY DECREASED: 45-59 MODERATELY TO SEVERELY DECREASED: 30-44SEVERELY DECREASED: 15-29RENAL FAILURE: <15 AST 11 U/L 15-37 L [facility] ALT 18 U/L 12-78 [facility] ALKALINE PHOSPHATASE 232 U/L 46-116 H [facility] TOTAL BILIRUBIN 0.6 mg/dL 0.2-1.0 [facility] TOTAL PROTEIN 8.5 g/dl 6.4-8.2 H [facility] ALBUMIN 4.0 gm/dL 3.4-5.0 [facility] ID Date Data Source [id number] 03/18/2021 07:16:00 AM EDT [facility] TSYSORDER [id number] Name Value Range Interpretation Code Description Data Anabell rce(s) Supporting Document(s) WHITE BLOOD COUNT 12.6 K/mm3 4.0-10.0 H [facility] indira RED BLOOD COUNT 4.25 M/mm3 4.00-5.50 [facility] HEMOGLOBIN 14.0 gm/dL 12.0-16.0 [facility] HEMATOCRIT 41.6 % 36.0-48.8 [facility] MEAN CELL VOLUME 97.9 fl 80-96 H [facility] l MEAN CORPUSCULAR HEMOGLOBIN 32.9 pg 27.0-31.0 H [facility] MEAN CORPUSCULAR HGB CONC 33.7 g/dl 32.0-36.0 [facility] RED CELL DISTRIBUTION WIDTH 13.0 % 10.0-14.5 [facility] PLATELET COUNT 402 K/mm3 172-450 [facility] MEAN PLATELET VOLUME 9.2 fl 9.0-13.0 [facility] pital GRAN % 69.4 % 50-80.0 [facility] IG% 0.4 % 0.0-0.2 H [facility] LYMPH % 16.6 % 25.0-50.0 L [facility] MONO % 9.0 % 2.0-10.0 [facility] EOS % 4.1 % 0-5.0 [facility] BASO % 0.5 % 0.0-2.0 [facility] GRAN # 8.7 K/mm3 2.0-8.00 H [facility] IG# 0.1 K/mm3 0.0-0.2 [facility] LYMPH # 2.1 K/mm3 1.0-5.0 [facility] MONO # 1.1 K/mm3 0.10-1.20 [facility] EOS # 0.5 K/mm3 0.0-0.5 [facility] BASO # 0.1 K/mm3 0.0-0.2 [facility] ID Date Data Source [id number] 01/19/2021 08:28:00 PM EDT [facility] Patient: ALEXANDER SIFUENTES Observat ion Report - [facility]VisitID: [id number] [place] [address] [phone], [facility] Date/Time: 01/18/2021 01:13 Weight:41.7 kg. Height/Length:61 inches (S). BMI:17.4 PAST HISTORYMedications:busPIRone HCl Oral.Does not know all of her meds and had no list.Hypertention pill, daily, last dose yesterday.Aspirin Adult Low Dose Oral (Tablet Delayed Release 81 mg), daily, last dose yesterday.Cholesterol medication, daily, last dose yesterday. Allergies:No Known Drug Allergy. FAMILY HISTORYNegative - denies family medical history. (Electronically signed by Michael Feng, P.A. 01/18/2021 05:09) Name Value Range Interpretation Code Description Data Anabell rce(s) Supporting Document(s) ID Date Data Source [id number] 01/18/2021 07:53:[address] [facility] WITHOUT CONTRAST DATE OF EXAMIN ATION: 01/18/2021 2:06 EDT BRAIN W/O CONTRAST INDICATION: Dizziness COMPARISON: None TECHNIQUE: Axial images were obtained from the foramen magnum to the vertex.Intravenous contrast was not utilized for this examination. FINDINGS: The basal cisterns, cortical sulci and ventricles are prominent,consistent with age related atrophic change. There is decreased attenuation ofthe periventricular white matter, consistent with small vessel ischemic disease.Tiny old right basal ganglia lacunar infarct. There is calcification of the falxand tentorium. There is no mass effect or midline shift. No intracranialbleeds. No intra or extraaxial collections. The calvarium and extracranialsoft tissues are unremarkable. The visualized paranasal sinuses are wellaerated. IMPRESSION: Atrophic change with periventricular leukomalacia. No acuteintracranial abnormalities. Electronically signed in PS360 by: Wolf Moore M.D. 01/18/2021 7:48 EDT Name Value Range Interpretation Code Description Data Anabell rce(s) Supporting Document(s) ID Date Data Source [id number] 01/18/2021 07:47:00 AM EDT [facility] CHEST, FRONTAL AND LATERAL DATE OF EXAMI NATION: 01/18/2021 2:06 EDT CHEST 2 VIEWS INDICATION: Shortness of breath COMPARISON: None TECHNIQUE: Frontal and lateral views of the chest were obtained. The lungs are hyperexpanded. There is left apical pleural scarring. There isatherosclerotic and tortuous. There is no edema, pneumonia, or pneumothorax Thechest wall and mediastinal structures are unremarkable. There is no pleuraldisease. The lungs are clear. IMPRESSION: Chronic obstructive pulmonary disease Electronically signed in PS360 by: Wolf Moore M.D. 01/18/2021 7:42 EDT Name Value Range Interpretation Code Description Data Anabell rce(s) Supporting Document(s) ID Date Data Source [id number] 01/18/2021 03:15:[address] [facility] TSYSORDER [id number] Name Value Range Interpretation Code Description Data Anabell rce(s) Supporting Document(s) FREE T4 1.8 ng/dL 0.76-1.46 [facility] ID Date Data Source [id number] 01/18/2021 03:15:[address] [facility] TSYSORDER [id number] Name Value Range Interpretation Code Description Data Anabell rce(s) Supporting Document(s) TSH 3.504 uIU/mL 0.360-3.740 [facility] ID Date Data Source [id number] 01/18/2021 03:01:00 AM EDT [facility] TSYSORDER [id number] Name Value Range Interpretation Code Description Data Anabell rce(s) Supporting Document(s) MAGNESIUM 2.3 mg/dL 1.8-2.4 [facility] ID Date Data Source [id number] 01/18/2021 03:01:00 AM EDT [facility] TSYSORDER [id number] Name Value Range Interpretation Code Description Data Anabell rce(s) Supporting Document(s) LIPASE 246 U/L 73-393 [facility] ID Date Data Source [id number] 01/18/2021 03:01:00 AM EDT [facility] TSYSORDER [id number] Name Value Range Interpretation Code Description Data Anabell rce(s) Supporting Document(s) TROPONIN-HIGH SENSITIVITY 7.2 ng/L 0-60.4 [facility] ID Date Data Source [id number] 01/18/2021 03:01:00 AM EDT [facility] TSYSORDER [id number] Name Value Range Interpretation Code Description Data Anabell rce(s) Supporting Document(s) GLUCOSE 109 mg/dL 74-106 [facility] BLOOD UREA NITROGEN 28 mg/dL 7-[address] [facility] ital CREATININE 1.55 mg/dL 0.6-1.0 [facility] SODIUM 142 mmol/L 136-145 [facility] POTASSIUM 4.4 mmol/L 3.5-5.1 [facility] CHLORIDE 104 mmol/L 98-107 [facility] CO2 25 mmol/L 21-32 [facility] CALCIUM 9.3 mg/dL 8.5-10.1 [facility] ANION GAP 13.0 mmol/L 5-12 [facility] GLOMERULAR FILTRATION RATE 32 mL/min [facility] GFR IS CALCULATED IN mL/min/1.73m2 MIKE L FUNCTION: >90MILDLY DECREASED: 60-89MILDY TO MODERATELY DECREASED: 45-59 MODERATELY TO SEVERELY DECREASED: 30-44SEVERELY DECREASED: 15-29RENAL FAILURE: <15 AST 15 U/L 15-37 [facility] ALT 17 U/L 12-78 [facility] ALKALINE PHOSPHATASE 254 U/L 46-116 H [facility] pital TOTAL BILIRUBIN 0.5 mg/dL 0.2-1.0 [facility] TOTAL PROTEIN 8.0 g/dl 6.4-8.2 [facility] ALBUMIN 4.0 gm/dL 3.4-5.0 [facility] ID Date Data Source [id number] 01/18/2021 02:52:00 AM EDT [facility] TSYSORDER [id number] Name Value Range Interpretation Code Description Data Anabell rce(s) Supporting Document(s) PARTIAL THROMBOPLASTIN TIME 24.1 SECONDS 21.2-27.3 [facility] ID Date Data Source [id number] 01/18/2021 02:52:00 AM EDT [facility] TSYSORDER [id number] Name Value Range Interpretation Code Description Data Anabell rce(s) Supporting Document(s) PROTHROMBIN TIME (PATIENT) 9.9 SECONDS 9.1-11.6 [facility] INR 0.95 0.87-1.06 [facility] ID Date Data Source [id number] 01/18/2021 02:34:00 AM T [facility] TSYSORDER [id number] Name Value Range Interpretation Code Description Data Anabell rce(s) Supporting Document(s) WHITE BLOOD COUNT 13.1 K/mm3 4.0-10.0 [facility] RED BLOOD COUNT 4.28 M/mm3 4.00-5.50 [facility] HEMOGLOBIN 14.0 gm/dL 12.0-16.0 [facility] HEMATOCRIT 40.8 % 36.0-48.8 [facility] MEAN CELL VOLUME 95.3 fl 80-96 [facility] MEAN CORPUSCULAR HEMOGLOBIN 32.7 pg 27.0-31.0 H [facility] MEAN CORPUSCULAR HGB CONC 34.3 g/dl 32.0-36.0 [facility] RED CELL DISTRIBUTION WIDTH 12.9 % 10.0-14.5 [facility] PLATELET COUNT 308 K/mm3 172-450 [facility] MEAN PLATELET VOLUME 9.7 fl 9.0-13.0 [facility] GRAN % 71.2 % 50-80.0 [facility] IG% 0.2 % 0.0-0.2 [facility] LYMPH % 14.5 % 25.0-50.0 L [facility] MONO % 10.4 % 2.0-10.0 [facility] EOS % 3.3 % 0-5.0 [facility] BASO % 0.4 % 0.0-2.0 [facility] GRAN # 9.3 K/mm3 2.0-8.00 H [facility] IG# 0.0 K/mm3 0.0-0.2 [facility] LYMPH # 1.9 K/mm3 1.0-5.0 [facility] MONO # 1.4 K/mm3 0.10-1.20 H [facility] EOS # 0.4 K/mm3 0.0-0.5 [facility] BASO # 0.1 K/mm3 0.0-0.2 [facility] Procedure Social History Code Duration Value Status Description Data Source(s ) Smoking 04/02/2021 12:00:00 AM EDT Former Smoker completed Former Smoker eCW1 ([facility]) Smoking 04/02/2021 12:00:00 AM EDT Former Smoker completed Former Smoker eCW1 ([facility]) Smoking 04/02/2021 12:00:00 AM EDT Former Smoker completed Former Smoker eCW1 ([facility]) Smoking 04/02/2021 12:00:00 AM EDT Former Smoker completed Former Smoker eCW1 ([facility]) Smoking 03/23/2021 12:00:00 AM EDT Former Smoker completed Former Smoker eCW1 ([facility]) Smoking 03/23/2021 12:00:00 AM EDT Former Smoker completed Former Smoker eCW1 ([facility]) Smoking 03/23/2021 12:00:00 AM EDT Former Smoker completed Former Smoker eCW1 ([facility]) Smoking 03/20/2021 12:00:00 AM EDT Former Smoker completed Former Smoker eCW1 ([facility]) Smoking 02/18/2021 12:00:00 AM EDT Former Smoker completed Former Smoker eCW1 ([facility]) Smoking 01/20/2021 12:00:00 AM EDT Former Smoker completed Former Smoker eCW1 ([facility]) Smoking 01/20/2021 12:00:00 AM EDT Former Smoker completed Former Smoker eCW1 ([facility]) Smoking 01/14/2021 12:00:00 AM EDT Former Smoker completed Former Smoker eCW1 ([facility]) Smoking 01/14/2021 12:00:00 AM EDT Former Smoker completed Former Smoker eCW1 ([facility]) Smoking 10/17/2020 12:00:00 AM EDT Former Smoker completed Former Smoker eCW1 ([facility]) Smoking 10/17/2020 12:00:00 AM EDT Former Smoker completed Former Smoker eCW1 ([facility]) Smoking 08/15/2020 12:00:00 AM EST Former Smoker completed Former Smoker eCW1 ([facility]) Smoking 08/15/2020 12:00:00 AM EST Former Smoker completed Former Smoker eCW1 ([facility]) Smoking 06/18/2020 12:00:00 AM EST Former Smoker completed Former Smoker eCW1 ([facility]) Smoking 06/18/2020 12:00:00 AM EST Former Smoker completed Former Smoker eCW1 ([facility]) Vital Signs ID Date Data Source [id number] Name Value Range Interpretation Code Description Data Source(s) Heart rate 72 /min 72 /min eCW1 ([facility]) Body weight 88.4 [lb_av] 88.4 [lb_av] eCW1 ([facility]) Body height 61.5 [in_i] 61.5 [in_i] eCW1 ([facility]) Body mass index (BMI) [Ratio] 16.43 kg/m2 16.43 kg/m2 W1 ([facility]) Respiratory rate 18 /min 18 /min [facility] Body temperature 98 [degF] 98 [degF] eCW1 [facility] Systolic blood pressure 124 mm[Hg] 124 mm[Hg] e CW1 ([facility]) Diastolic blood pressure 74 mm[Hg] 74 mm[Hg] eCW1 ([facility]) Body weight 86 [lb_av] 86 [lb_av] eCW1 ([facility]) Body weight 39.01 kg 39.01 kg eCW1 ([facility]) Body height 61.5 [in_i] 61.5 [in_i] eCW1 ([facility]) Body mass index (BMI) [Ratio] 15.98 kg/m2 15.98 kg/m2 eCW1 ([facility]) Heart rate 72 /min 72 /min eCW1 ([facility]) Respiratory rate 18 /min 18 /min eCW1 ([facility]) Body temperature 97.6 [degF] 97.6 [degF] eCW1 ( [facility]) Systolic blood pressure 112 mm[Hg] 112 mm[Hg] e CW1 ([facility]) Diastolic blood pressure 62 mm[Hg] 62 mm[Hg] eCW1 ([facility]) Body weight [lb_av] eCW1 ([facility]) Body weight 39.01 kg 39.01 kg eCW1 ([facility]) Body height 61.5 [in_i] 61.5 [in_i] eCW1 ([facility]) Body mass index (BMI) [Ratio] 15.98 kg/m2 15.98 kg/m2 eCW1 ([facility]) Heart rate 75 /min 75 /min eCW1 ([facility]) Respiratory rate 18 /min 18 /min eCW1 ([facility]) Body temperature 97.8 [degF] 97.8 [degF] eCW1 ( [facility]) Systolic blood pressure 95 mm[Hg] 95 mm[Hg] e CW1 ([facility]) Diastolic blood pressure 55 mm[Hg] 55 mm[Hg] eCW1 ([facility]) Body temperature 97.1 [degF] 97.1 [degF] eCW1 ( [facility]) Systolic blood pressure 142 mm[Hg] 142 mm[Hg] e CW1 ([facility]) Diastolic blood pressure 68 mm[Hg] 68 mm[Hg] eCW1 ([facility]) Body weight 86 [lb_av] 86 [lb_av] eCW1 ([facility]) Body weight 39.01 kg 39.01 kg eCW1 ([facility]) Body height 61.5 [in_i] 61.5 [in_i] eCW1 ([facility]) Body mass index (BMI) [Ratio] 15.98 kg/m2 15.98 kg/m2 eCW1 ([facility]) Heart rate 84 /min 84 /min eCW1 ([facility]) Respiratory rate 18 /min 18 /min eCW1 ([facility]) Body weight 89.8 [lb_av] 89.8 [lb_av] eCW1 ([facility]) Body height 61.5 [in_i] 61.5 [in_i] eCW1 ([facility]) Body mass index (BMI) [Ratio] 16.69 kg/m2 16.69 kg/m2 eCW1 ([facility]) Heart rate 78 /min 78 /min eCW1 ([facility]) Respiratory rate 18 /min 18 /min eCW1 ([facility]) Body temperature 97.8 [degF] 97.8 [degF] eCW1 ( [facility]) Systolic blood pressure 144 mm[Hg] 144 mm[Hg] e CW1 ([facility]) Diastolic blood pressure 60 mm[Hg] 60 mm[Hg] eCW1 ([facility]) Body weight 90.8 [lb_av] 90.8 [lb_av] eCW1 ([facility]) Body height 61.5 [in_i] 61.5 [in_i] eCW1 ([facility]) Body mass index (BMI) [Ratio] 16.88 kg/m2 16.88 kg/m2 eCW1 ([facility]) Heart rate 76 /min 76 /min eCW1 ([facility]) Respiratory rate 20 /min 20 /min eCW1 ([facility]) Body temperature 97.8 [degF] 97.8 [degF] eCW1 ( [facility]) Systolic blood pressure 150 mm[Hg] 150 mm[Hg] e CW1 ([facility]) Diastolic blood pressure 77 mm[Hg] 77 mm[Hg] eCW1 ([facility]) Body weight 92.8 [lb_av] 92.8 [lb_av] eCW1 ([facility]) Body height 61.5 [in_i] 61.5 [in_i] eCW1 ([facility]) Body mass index (BMI) [Ratio] 18.4 kg/m2 18.4 k g/m2 eCW1 ([facility]) Heart rate 72 /min 72 /min eCW1 ([facility]) Respiratory rate 18 /min 18 /min eCW1 ([facility]) Systolic blood pressure 151 mm[Hg] 151 mm[Hg] e CW1 ([facility]) Diastolic blood pressure 76 mm[Hg] 76 mm[Hg] eCW1 ([facility]) Body temperature 97.8 [degF] 97.8 [degF] eCW1 ( [facility]) Body weight 94.12 [lb_av] 94.12 [lb_av] eCW1 ([facility]) Body height 61.5 [in_i] 61.5 [in_i] eCW1 ([facility]) Body mass index (BMI) [Ratio] 17.49 kg/m2 17.49 kg/m2 eCW1 ([facility]) Heart rate 85 /min 85 /min eCW1 ([facility]) Respiratory rate 18 /min 18 /min eCW1 ([facility]) Body temperature 97.8 [degF] 97.8 [degF] eCW1 ( [facility]) Systolic blood pressure 124 mm[Hg] 124 mm[Hg] e CW1 ([facility]) Diastolic blood pressure 80 mm[Hg] 80 mm[Hg] eCW1 ([facility]) Body weight 96.8 [lb_av] 96.8 [lb_av] eCW1 ([facility]) Body height 61.5 [in_i] 61.5 [in_i] eCW1 ([facility]) Body mass index (BMI) [Ratio] 17.99 kg/m2 17.99 kg/m2 eCW1 ([facility]) Heart rate 70 /min 70 /min eCW1 ([facility]) Respiratory rate 18 /min 18 /min eCW1 ([facility] Body temperature 98 [degF] 98 [degF] eCW1 ([facility]) Systolic blood pressure 126 mm[Hg] 126 mm[Hg] e CW1 ([facility]) Diastolic blood pressure 72 mm[Hg] 72 mm[Hg] eCW1 ([facility]) Body weight 98.4 [lb_av] 98.4 [lb_av] eCW1 ([facility]) Body height 61.5 [in_i] 61.5 [in_i] eCW1 ([facility]) Body mass index (BMI) [Ratio] 18.29 kg/m2 18.29 kg/m2 eCW1 ([facility]) Heart rate 69 /min 69 /min eCW1 ([facility]) Respiratory rate 18 /min 18 /min eCW1 ([facility] Body temperature 98 [degF] 98 [degF] eCW1 ([facility]) Systolic blood pressure 124 mm[Hg] 124 mm[Hg] e CW1 ([facility]) Diastolic blood pressure 73 mm[Hg] 73 mm[Hg] eCW1 ([facility]) Patient Treatment Plan of Care Planned Activity Planned Date Details Description Data Source (s) Sulfamethoxazole 800 MG / Trimethoprim 160 MG Oral Tab let [Bactrim] 04/06/2021 12:00:00 AM EDT eCW1 ([facility]) Sulfamethoxazole 800 MG / Trimethoprim 160 MG Oral Tab let [Bactrim] 04/06/2021 12:00:00 AM EDT eCW1 ([facility]) Walker - 04/03/2021 12:00:00 AM EDT e CW1 ([facility]) Walker - 04/03/2021 12:00:00 AM EDT e CW1 ([facility]) Walker - 04/03/2021 12:00:00 AM EDT e CW1 ([facility]) Lidocaine Hydrochloride 40 MG/ML Topical Cream 02/18/2021 12:00:00 AM EDT eCW1 ([facility]) Diclofenac Sodium 0.01 MG/MG Topical Gel [Voltaren] 01/15/20 12:00:00 AM EDT eCW1 ([facility]) buspirone hydrochloride 5 MG Oral Tablet 01/14/2021 12:00:00 AM EDT eCW1 ([facility]) Diclofenac Sodium 0.01 MG/MG Topical Gel [Voltaren] 01/15/20 12:00:00 AM EDT eCW1 ([facility]) buspirone hydrochloride 5 MG Oral Tablet 01/14/2021 12:00:00 AM EDT eCW1 ([facility]) Amlodipine 2.5 MG Oral Tablet 10/17/2020 12:00:00 AM EDT eCW1 ([facility]) Amlodipine 2.5 MG Oral Tablet 10/17/2020 12:00:00 AM EDT eCW1 ([facility]) Amlodipine 2.5 MG Oral Tablet 10/17/2020 12:00:00 AM EDT eCW1 ([facility]) Amlodipine 2.5 MG Oral Tablet 10/17/2020 12:00:00 AM EDT eCW1 ([facility]) 24 HR Propranolol Hydrochloride 60 MG Extended Release Oral Capsule 06/18/2020 12:00:00 AM EST eCW1 ([facility]) 24 HR Propranolol Hydrochloride 60 MG Extended Release Oral Capsule 06/18/2020 12:00:00 AM EST eCW1 ([facility]) 24 HR Propranolol Hydrochloride 60 MG Extended Release Oral Capsule 06/18/2020 12:00:00 AM EST eCW1 ([facility])
[2021-04-13] MEDS ORDERED: BACT800T5 PO (11:18)
[2021-04-13] MEDS ORDERED: ETOMIDATE INJ 20MG/10ML VIAL As Ordered ONE (12:44)
[2021-04-13] MEDS ORDERED: ACETAMINOPHEN 1000MG 100ML IV BTL (OFIRMEV) (J0131 PER 10MG) As Ordered ONE (13:09)
[2021-04-13] MEDS ORDERED: PHENYLephrine 500MCG 5ML (100MCG/ML) SYRINGE As Ordered ONE (13:12)
[2021-04-13] MEDS ORDERED: ePHEDrine SULFATE 25 MG/5 ML(5MG/ML) SYRINGE As Ordered ONE (13:12)
[2021-04-13] MEDS ORDERED: PHENYLEPHRINE 10MG/ML 1ML VIAL (J2370 PER 1) As Ordered ONE (13:12)
[2021-04-13] MEDS ORDERED: DESFLURANE 240 ML INHALANT As Ordered ONE (13:24)
[2021-04-13] MEDS ORDERED: ROCURONIUM BROMIDE 50 MG/5 ML VIAL As Ordered ONE (13:28)
[2021-04-13] MEDS ORDERED: SUGAMMADEX SODIUM 500 MG/5 ML VIAL (BRIDION) As Ordered ONE (13:31)
[2021-04-13] MEDS ORDERED: GLYCOPYRROLATE INJ 0.2 MG/ML 2 ML VIAL As Ordered ONE (13:39)
[2021-04-13] MEDS ORDERED: ONDANSETRON 4MG/2ML VIAL IV PRN (14:30)
[2021-04-13] MEDS ORDERED: fentaNYL 100 MCG/2 ML INJECTION (J3010) IV PRN (14:30)
[2021-04-13] MEDS ORDERED: LR 1,000 ML IV SCH (14:35)
[2021-04-13] MEDS ORDERED: ACETAMINOPHEN TAB 650MG DOSE (2X325MG) PO PRN (14:35)
--- NOTE | 2021-04-13 15:07 | RO ---
OPERATIVE NOTE DATE OF OPERATION: 04/13/2021 PREOPERATIVE DIAGNOSIS: Bladder tumor. POSTOPERATIVE DIAGNOSIS: Bladder tumor. PROCEDURE: Cystoscopy, transurethral resection of bladder tumor (greater than 5 cm), examination under anesthesia. SURGEON: Don Power MD EQUAL OPPORTUNITY REPRESENTATIVE: None. ANESTHESIA: General. OPERATIVE INDICATIONS: This is an 89-year-old female who was found to have a very large somewhat necrotic tumor on recent office cystoscopy done for hematuria. She was brought to the operating room today for treatment. DESCRIPTION OF PROCEDURE: The patient was brought to the operating room and general anesthesia was induced. Prophylactic antibiotics were infused. She was then placed in dorsal lithotomy position and prepped and draped in usual sterile fashion. A bimanual pelvic examination was then performed under anesthesia. There were no palpable bladder masses. The bladder was freely mobile. At this point the resectoscope was inserted in the urethral meatus and advanced to the bladder. The bladder was thoroughly examined. There was a very large tumor on the posterior wall which was somewhat necrotic. There were also several areas on the bladder wall that were blackish and purplish. Also I made note of the location of both ureteral orifices. They were orthotopic. There was no tumor involvement near the ureteral orifices. At this point I utilized a bipolar loop to resect a large portion of the posterior bladder wall tumor. Of note, due to concern that I would perforate her bladder I did not resect too deep. There definitely appeared to be deep involvement of this tumor into the bladder wall. I was not able to completely resect all the way deep down with concern for perforation. A Urovac evacuator was utilized to remove all the specimens in the bladder. I then utilized a plasma button to thoroughly cauterize the base of resection and to fulgurate some of the remaining tumor. Once done there was good hemostasis. The resectoscope was then removed and an 18-Arabic Last catheter was inserted into the bladder. The balloon was filled with 10 mL of sterile water and then the catheter was connected to gravity drainage. This marked the conclusion of the procedure. The patient was taken out of the dorsal lithotomy position, awakened from anesthesia and transported to the recovery room in stable condition. ESTIMATED BLOOD LOSS: 25 mL. COMPLICATIONS: None. SPECIMEN: Bladder tumors. PLAN: The patient will follow up in urology clinic in 10-14 days for catheter removal. We will discuss the pathology results. Of note, I do not think it is possible to completely resect all the tumor from this patient and any treatment from this point on will be palliative. MTDD
[2021-04-13 16:13] VITALS: BP 115/58
[2021-04-14] MEDS ORDERED: AMLO2.5T3 PO (08:01)
== END 2021-04-13 16:28 | disposition home or self-care (01) ==
LOC: M SDC 10:35
PROVIDERS: ATTEND Urology
DX: C67.9 Malignant neoplasm of bladder, unspecified (principal); Z91.040 Latex allergy status; I10 Essential (primary) hypertension; E78.5 Hyperlipidemia, unspecified; Z86.73 Personal history of transient ischemic attack (TIA), and cerebral infarction without residual deficits; Z79.899 Other long term (current) drug therapy; Z87.891 Personal history of nicotine dependence

== ENCOUNTER 2021-04-14 00:31 | Inpatient (IN) | payer MEDICARE, OTHER ==
[~2021-04-14] VITALS: Ht 157.5 cm; Wt 39.0 kg
[~2021-04-14 00:31] MED LIST changes: +BACT800T5 PO; -LIDOCAINE 1% MDV 20ML VIAL SQ PRN; -LIDOCAINE 2% 100MG/5ML SDV (FOR ANES.) As Ordered ONE; -LR 1,000 ML IV ONE; -ONDANSETRON 4MG/2ML VIAL As Ordered ONE; -ROCURONIUM BROMIDE 50 MG/5 ML VIAL As Ordered ONE; -ceFAZolin SOD 2 GM in IV 1 EA IV ONE; -dexameTHASONE 4 MG/ML 1ML VIAL (J1100 PER 1MG) As Ordered ONE; -fentaNYL 100 MCG/2 ML INJECTION (J3010) As Ordered ONE; -propofoL 200 MG/20 ML VIAL As Ordered ONE
--- OUTSIDE RECORDS SUMMARY | 2021-04-14 00:36 | CCD ---
Author Author [facility] Organization [facility] Address Unknown Phone Unavailable Care Team Providers Care Mortgage Loan Originator Name Role Phone Carissa Posadas MD Unavailable [...] is protected by Article 27-F of the [facility] Public Health law. If you continue you may have access to information: Regarding HIV / AIDS; Provided by facilities licensed or operated by the [facility] Office of Mental Health; or Provided by the [facility] Office for People With Developmental Disabilities. If such information is present, then the following [facility] mandated warning applies: This information has been [...] law may result in a fine or detention sentence or both. A general authorization for the release of medical or other information is NOT sufficient authorization for further disc losure. Encounters Encounter Providers Location Date Indications Data Source(s ) [place] [address] [address] 04/06/2021 12:00:00 AM EDT eCW1 ([facility]) [place] [address] [address] 04/03/2021 12:00:00 AM EDT eCW1 ([facility]) [place] [address] [address] 04/02/2021 12:00:00 AM EDT eCW1 ([facility]) [place] [address] [address] 04/02/2021 12:00:00 AM EDT eCW1 ([facility]) [place] [address] [facility] [address] 04/01/2021 12:00:00 AM EDT eCW1 ([facility]) (Cysto1) Urology [address] [place] [address] 03/23/2021 12:00:00 AM EDT eCW1 ([facility]) [place] [address] [facility] [address] 03/20/2021 12:00:00 AM EDT eCW1 ([facility]) Outpatient Attender: Desean eNgro DOConsultant: Converse Yuniel [id number] 03/18/2021 09:10:00 AM EDT [facility] Emergency Attender: Desean Deanerrer: Arben Ferrer EMERGENCY ROOM-ER 03/18/2021 07:42:00 AM EDT - 03/18/2021 09:28:00 AM EDT [facility] Patient discharged. [place] [address] [facility] [address] 03/18/2021 12:00:00 AM EDT eCW1 ([facility]) [place] [address] [facility] [address] 02/18/2021 12:00:00 AM EDT eCW1 ([facility]) [place] [address] [facility] [address] 01/22/2021 12:00:00 AM EDT eCW1 ([facility]) [place]patient [address] [facility] [address] 01/20/2021 12:00:00 AM EDT eCW1 ([facility]) Emergency Attender: MICHAEL Cedenoer : Arben Posadas MD EMERGENCY ROOM-ER 01/18/2021 02:23:00 AM EDT - 01/18/2021 04:54:00 AM EDT [facility] Patient discharged. [place] [address] [facility] [address] 01/15/2021 12:00:00 AM EDT eCW1 ([facility]) [place] [address] [facility] [address] 01/14/2021 12:00:00 AM EDT eCW1 ([facility]) [place] [address] [facility] [address] 01/13/2021 12:00:00 AM EDT eCW1 ([facility]) [place] [address] [facility] [address] 10/17/2020 12:00:00 AM EDT eCW1 ([facility]) [place] [address] [facility] [address] 09/17/2020 12:00:00 AM EDT eCW1 ([facility]) [place] [address] [facility] [address] 08/15/2020 12:00:00 AM EST eCW1 ([facility]) [place] [address] [facility] [address] 08/05/2020 12:00:00 AM EST eCW1 ([facility]) [place] [address] [facility] [address] 06/18/2020 12:00:00 AM EST eCW1 ([facility]) [place] [address] [facility] [address] 06/09/2020 12:00:00 AM EST eCW1 ([facility]) [place] [address] [facility] [address] 05/18/2020 12:00:00 AM EST eCW1 ([facility]) [place] [address] [facility] [address] 04/17/2020 12:00:00 AM EST eCW1 ([facility]) [place] [address] [facility] [address] 04/09/2020 12:00:00 AM EST eCW1 ([facility]) [place] [address] [facility] [address] 04/04/2020 12:00:00 AM EDT eCW1 ([facility]) [facility] [address] [address] 02/21/2020 12:00:00 AM EDT eCW1 ([facility]) Outpatient Attender: Arben Posadas MD 04/05/2018 10:00:00 AM [facility] Immunizations Vaccine Date Status Description Data Source(s) influenza, recombinant, quadrIvalent,injectable, prese rvative free 04/02/2021 11:02:00 AM EDT completed eCW1 ([facility]) influenza, recombinant, quadrIvalent,injectable, prese rvative free 04/02/2021 11:02:00 AM EDT completed eCW1 ([facility]) influenza, recombinant, quadrIvalent,injectable, prese rvative free 04/02/2021 11:02:00 AM EDT completed eCW1 ([facility]) influenza, recombinant, quadrIvalent,injectable, prese rvative free 04/02/2021 11:02:00 AM EDT completed eCW1 ([facility]) COVID-19 dose #2 given elsewhere Unspecified 09/01/2020 07:2 0:00 AM EDT completed eCW1 ([facility]) COVID-19 dose #2 given elsewhere Unspecified 09/01/2020 07:2 0:00 AM EDT completed eCW1 ([facility]) COVID-19 dose #2 given elsewhere Unspecified 09/01/2020 07:2 0:00 AM EDT completed eCW1 ([facility]) COVID-19 dose #2 given elsewhere Unspecified 09/01/2020 07:2 0:00 AM EDT completed eCW1 ([facility]) COVID-19 dose #2 given elsewhere Unspecified 09/01/2020 07:2 0:00 AM EDT completed eCW1 ([facility]) COVID-19 dose #2 given elsewhere Unspecified 09/01/2020 07:2 0:00 AM EDT completed eCW1 ([facility]) COVID-19 dose #2 given elsewhere Unspecified 09/01/2020 07:2 0:00 AM EDT completed eCW1 ([facility]) COVID-19 dose #2 given elsewhere Unspecified 09/01/2020 07:2 0:00 AM EDT completed eCW1 ([facility]) COVID-19 dose #2 given elsewhere Unspecified 09/01/2020 07:2 0:00 AM EDT completed eCW1 ([facility]) COVID-19 dose #2 given elsewhere Unspecified 09/01/2020 07:2 0:00 AM EDT completed eCW1 ([facility]) COVID-19 dose #2 given elsewhere Unspecified 09/01/2020 07:2 0:00 AM EDT completed eCW1 ([facility]) COVID-19 dose #2 given elsewhere Unspecified 09/01/2020 07:2 0:00 AM EDT completed eCW1 ([facility]) COVID-19 dose #2 given elsewhere Unspecified 09/01/2020 07:2 0:00 AM EDT completed eCW1 ([facility]) COVID-19 dose #2 given elsewhere Unspecified 09/01/2020 07:2 0:00 AM EDT completed eCW1 ([facility]) COVID-19 dose #2 given elsewhere Unspecified 09/01/2020 07:2 0:00 AM EDT completed eCW1 ([facility]) COVID-19 VACCINE Moderna 09/01/2020 12:00:00 AM EDT completed [facility] Vaccine Series Complete: YESThis Data wa s Submitted to [facility] Via [employer]. COVID-19 VACCINE, MRNA-1273, LNP-S (MODERNA)/PF 09/01/2020 1 2:00:00 AM EDT completed [facility] COVID-19 dose #1 given elsewhere Unspecified 07/31/2020 08:3 3:00 AM EST completed eCW1 ([facility]) COVID-19 dose #1 given elsewhere Unspecified 07/31/2020 08:3 3:00 AM EST completed eCW1 ([facility]) COVID-19 dose #1 given elsewhere Unspecified 07/31/2020 08:3 3:00 AM EST completed eCW1 ([facility]) COVID-19 dose #1 given elsewhere Unspecified 07/31/2020 08:3 3:00 AM EST completed eCW1 ([facility]) COVID-19 dose #1 given elsewhere Unspecified 07/31/2020 08:3 3:00 AM EST completed eCW1 ([facility]) COVID-19 dose #1 given elsewhere Unspecified 07/31/2020 08:3 3:00 AM EST completed eCW1 ([facility]) COVID-19 dose #1 given elsewhere Unspecified 07/31/2020 08:3 3:00 AM EST completed eCW1 ([facility]) COVID-19 dose #1 given elsewhere Unspecified 07/31/2020 08:3 3:00 AM EST completed eCW1 ([facility]) COVID-19 dose #1 given elsewhere Unspecified 07/31/2020 08:3 3:00 AM EST completed eCW1 ([facility]) COVID-19 dose #1 given elsewhere Unspecified 07/31/2020 08:3 3:00 AM EST completed eCW1 ([facility]) COVID-19 dose #1 given elsewhere Unspecified 07/31/2020 08:3 3:00 AM EST completed eCW1 ([facility]) COVID-19 dose #1 given elsewhere Unspecified 07/31/2020 08:3 3:00 AM EST completed eCW1 ([facility]) COVID-19 dose #1 given elsewhere Unspecified 07/31/2020 08:3 3:00 AM EST completed eCW1 ([facility]) COVID-19 dose #1 given elsewhere Unspecified 07/31/2020 08:3 3:00 AM EST completed eCW1 ([facility]) COVID-19 dose #1 given elsewhere Unspecified 07/31/2020 08:3 3:00 AM EST completed eCW1 ([facility]) COVID-19 dose #1 given elsewhere Unspecified 07/31/2020 08:3 3:00 AM EST completed eCW1 ([facility]) COVID-19 dose #1 given elsewhere Unspecified 07/31/2020 08:3 3:00 AM EST completed eCW1 ([facility]) COVID-19 VACCINE, MRNA-1273, LNP-S (MODERNA)/PF 07/31/2020 1 2:00:00 AM EST completed [facility] influenza, recombinant, quadrIvalent,injectable, prese rvative free 04/09/2020 08:55:00 AM EST completed eCW1 ([facility]) influenza, recombinant, quadrIvalent,injectable, prese rvative free 04/09/2020 08:55:00 AM EST completed eCW1 ([facility]) influenza, recombinant, quadrIvalent,injectable, prese rvative free 04/09/2020 08:55:00 AM EST completed eCW1 ([facility]) influenza, recombinant, quadrIvalent,injectable, prese rvative free 04/09/2020 08:55:00 AM EST completed eCW1 ([facility]) influenza, recombinant, quadrIvalent,injectable, prese rvative free 04/09/2020 08:55:00 AM EST completed eCW1 ([facility]) influenza, recombinant, quadrIvalent,injectable, prese rvative free 04/09/2020 08:55:00 AM EST completed eCW1 ([facility]) influenza, recombinant, quadrIvalent,injectable, prese rvative free 04/09/2020 08:55:00 AM EST completed eCW1 ([facility]) influenza, recombinant, quadrIvalent,injectable, prese rvative free 04/09/2020 08:55:00 AM EST completed eCW1 ([facility]) influenza, recombinant, quadrIvalent,injectable, prese rvative free 04/09/2020 08:55:00 AM EST completed eCW1 ([facility]) influenza, recombinant, quadrIvalent,injectable, prese rvative free 04/09/2020 08:55:00 AM EST completed eCW1 ([facility]) influenza, recombinant, quadrIvalent,injectable, prese rvative free 04/09/2020 08:55:00 AM EST completed eCW1 ([facility]) influenza, recombinant, quadrIvalent,injectable, prese rvative free 04/09/2020 08:55:00 AM EST completed eCW1 ([facility]) influenza, recombinant, quadrIvalent,injectable, prese rvative free 04/09/2020 08:55:00 AM EST completed eCW1 ([facility]) influenza, recombinant, quadrIvalent,injectable, prese rvative free 04/09/2020 08:55:00 AM EST completed eCW1 ([facility]) influenza, recombinant, quadrIvalent,injectable, prese rvative free 04/09/2020 08:55:00 AM EST completed eCW1 ([facility]) influenza, recombinant, quadrIvalent,injectable, prese rvative free 04/09/2020 08:55:00 AM EST completed eCW1 ([facility]) influenza, recombinant, quadrIvalent,injectable, prese rvative free 04/09/2020 08:55:00 AM EST completed eCW1 ([facility]) influenza, recombinant, quadrIvalent,injectable, prese rvative free 04/09/2020 08:55:00 AM EST completed eCW1 ([facility]) influenza, recombinant, quadrIvalent,injectable, prese rvative free 04/09/2020 08:55:00 AM EST completed eCW1 ([facility]) influenza, recombinant, quadrIvalent,injectable, prese rvative free 04/09/2020 08:55:00 AM EST completed eCW1 ([facility]) influenza, recombinant, quadrIvalent,injectable, prese rvative free 04/09/2020 08:55:00 AM EST completed eCW1 ([facility]) influenza, recombinant, quadrIvalent,injectable, prese rvative free 04/09/2020 08:55:00 AM EST completed eCW1 ([facility]) influenza, recombinant, quadrIvalent,injectable, prese rvative free 04/09/2020 08:55:00 AM EST completed eCW1 ([facility]) Medications Medication Brand Name Start Date Product Form Dose Route Admi nistrative Instructions Pharmacy Instructions Status Indications Reaction Description Data Source(s) Sulfamethoxazole 800 MG / Trimethoprim 1 60 MG Oral Tablet [Bactrim] Bactrim DS 800-160 MG Bactrim DS 800-160 MG 04/06/2021 12:00:00 AM EDT 1.0 {table t} active Bactrim DS 800-160 MG eCW1 ( [facility]) 800-160 mg 04/06/2021 12:00:00 AM EDT tablet [...] active Bactrim DS 800-160 MG eCW1 ( [facility]) Walker - Walker - 04/03/2021 12:00:00 AM EDT activ e Walker - eCW1 ([facility]) Walker - Walker - 04/03/2021 12:00:00 AM EDT activ e Walker - eCW1 ([facility]) Walker - Walker - 04/03/2021 12:00:00 AM EDT activ e Walker - eCW1 ([facility]) Cephalexin 500 MG Oral Capsule CEPHALEXIN 03/18/2021 12:00:00 AM EDT capsule 14 TAKE ONE CAPSULE BY MOUTH TWICE A DAY TAKE ONE CAPSULE BY MO UT TWICE A DAY SOLD: 03/18/2021 [facility] Lidocaine Hydrochloride 40 MG/ML Topical Cream Lidocai ne HCl 4 % Lidocaine HCl 4 % 02/18/2021 12:00:00 AM EDT 1.0 {application} active Lidocaine HCl 4 % eCW1 ([facility]) Lidocaine Hydrochloride 40 MG/ML Topical Cream Lidocai ne HCl 4 % Lidocaine HCl 4 % 02/18/2021 12:00:00 AM EDT 1.0 {application} active Lidocaine HCl 4 % eCW1 ([facility]) Lidocaine Hydrochloride 40 MG/ML Topical Cream Lidocai ne HCl 4 % Lidocaine HCl 4 % 02/18/2021 12:00:00 AM EDT 1.0 {application} active Lidocaine HCl 4 % eCW1 ([facility]) Lidocaine Hydrochloride 40 MG/ML Topical Cream Lidocai ne HCl 4 % Lidocaine HCl 4 % 02/18/2021 12:00:00 AM EDT 1.0 {application} active Lidocaine HCl 4 % eCW1 ([facility]) Lidocaine Hydrochloride 40 MG/ML Topical Cream Lidocai ne HCl 4 % Lidocaine HCl 4 % 02/18/2021 12:00:00 AM EDT 1.0 {application} active Lidocaine HCl 4 % eCW1 ([facility]) Lidocaine Hydrochloride 40 MG/ML Topical Cream Lidocai ne HCl 4 % Lidocaine HCl 4 % 02/18/2021 12:00:00 AM EDT 1.0 {application} active Lidocaine HCl 4 % eCW1 ([facility]) Lidocaine Hydrochloride 40 MG/ML Topical Cream Lidocai ne HCl 4 % Lidocaine HCl 4 % 02/18/2021 12:00:00 AM EDT 1.0 {application} active Lidocaine HCl 4 % eCW1 ([facility]) Lidocaine Hydrochloride 40 MG/ML Topical Cream Lidocai ne HCl 4 % Lidocaine HCl 4 % 02/18/2021 12:00:00 AM EDT 1.0 {application} active Lidocaine HCl 4 % eCW1 ([facility]) Lidocaine Hydrochloride 40 MG/ML Topical Cream Lidocai ne HCl 4 % Lidocaine HCl 4 % 02/18/2021 12:00:00 AM EDT 1.0 {application} active Lidocaine HCl 4 % eCW1 ([facility]) buspirone hydrochloride 5 MG Oral Tablet busPIRone HCl 5 MG busPIRone HCl 5 MG 01/14/2021 12:00:00 AM EDT 1.0 {tablet} active busPIRone HCl 5 MG eCW1 ([facility]) buspirone hydrochloride 5 MG Oral Tablet busPIRone HCl 5 MG busPIRone HCl 5 MG 01/14/2021 12:00:00 AM EDT 1.0 {tablet} suspende d busPIRone HCl 5 MG eCW1 ([facility]) Diclofenac Sodium 0.01 MG/MG Topical Gel [Voltaren] Voltaren 1 % Voltaren 1 % 01/14/2021 12:00:00 AM EDT active Voltaren 1 % eCW1 ([facility]) Diclofenac Sodium 0.01 MG/MG Topical Gel [Voltaren] Voltaren 1 % Voltaren 1 % 01/14/2021 12:00:00 AM EDT suspended Voltaren 1 % eCW1 ([facility]) buspirone hydrochloride 5 MG Oral Tablet busPIRone HCl 5 MG busPIRone HCl 5 MG 01/14/2021 12:00:00 AM EDT 1.0 {tablet} active busPIRone HCl 5 MG eCW1 ([facility]) buspirone hydrochloride 5 MG Oral Tablet busPIRone HCl 5 MG busPIRone HCl 5 MG 01/14/2021 12:00:00 AM EDT 1.0 {tablet} suspende d busPIRone HCl 5 MG eCW1 ([facility]) Diclofenac Sodium 0.01 MG/MG Topical Gel [Voltaren] Voltaren 1 % Voltaren 1 % 01/14/2021 12:00:00 AM EDT suspended Voltaren 1 % eCW1 ([facility]) buspirone hydrochloride 5 MG Oral Tablet busPIRone HCl 5 MG busPIRone HCl 5 MG 01/14/2021 12:00:00 AM EDT 1.0 {tablet} suspende d busPIRone HCl 5 MG eCW1 ([facility]) Diclofenac Sodium 0.01 MG/MG Topical Gel [Voltaren] Voltaren 1 % Voltaren 1 % 01/14/2021 12:00:00 AM EDT suspended Voltaren 1 % eCW1 ([facility]) buspirone hydrochloride 5 MG Oral Tablet busPIRone HCl 5 MG busPIRone HCl 5 MG 01/14/2021 12:00:00 AM EDT 1.0 {tablet} suspende d busPIRone HCl 5 MG eCW1 ([facility]) Diclofenac Sodium 0.01 MG/MG Topical Gel [Voltaren] Voltaren 1 % Voltaren 1 % 01/14/2021 12:00:00 AM EDT suspended Voltaren 1 % eCW1 ([facility]) buspirone hydrochloride 5 MG Oral Tablet busPIRone HCl 5 MG busPIRone HCl 5 MG 01/14/2021 12:00:00 AM EDT 1.0 {tablet} suspende d busPIRone HCl 5 MG eCW1 ([facility]) buspirone hydrochloride 5 MG Oral Tablet busPIRone HCl 5 MG busPIRone HCl 5 MG 01/14/2021 12:00:00 AM EDT 1.0 {tablet} suspende d busPIRone HCl 5 MG eCW1 ([facility]) Diclofenac Sodium 0.01 MG/MG Topical Gel [Voltaren] Voltaren 1 % Voltaren 1 % 01/14/2021 12:00:00 AM EDT suspended Voltaren 1 % eCW1 ([facility]) Diclofenac Sodium 0.01 MG/MG Topical Gel [Voltaren] Voltaren 1 % Voltaren 1 % 01/14/2021 12:00:00 AM EDT suspended Voltaren 1 % eCW1 ([facility]) 1 % 01/14/2021 12:00:00 AM EDT gel 100 APPLY 4 GRAMS TOPICALLY TO RIGHT HIP FOUR TIMES A DAY APPLY 4 GRAMS TOPICALLY TO RIGHT HIP FOUR TIMES A DAY SOLD: 01/15/2021 [facility] buspirone hydrochloride 5 MG Oral Tablet busPIRone HCl 5 MG busPIRone HCl 5 MG 01/14/2021 12:00:00 AM EDT 1.0 {tablet} suspende d busPIRone HCl 5 MG eCW1 ([facility]) Diclofenac Sodium 0.01 MG/MG Topical Gel [Voltaren] Voltaren 1 % Voltaren 1 % 01/14/2021 12:00:00 AM EDT active Voltaren 1 % eCW1 ([facility]) buspirone hydrochloride 5 MG Oral Tablet BUSPIRONE HCL 01/14/2021 12:00:00 AM EDT tablet 60 TAKE ONE TABLET BY MOUTH TWI CE A DAY TAKE ONE TABLET BY MOUTH TWICE A DAY SOLD: 01/15/2021 [facility] Diclofenac Sodium 0.01 MG/MG Topical Gel [Voltaren] Voltaren 1 % Voltaren 1 % 01/14/2021 12:00:00 AM EDT suspended Voltaren 1 % eCW1 ([facility]) 60 mg 12/05/2020 12:00:00 AM EDT capsule,extended [...] activ e amLODIPine Besylate 2.5 MG eCW1 ([facility]) Amlodipine 2.5 MG Oral Tablet amLODIPine Besylate 2.5 MG amLODIPine Besylate 2.5 MG 10/17/2020 12:00:00 AM EDT 1.0 {tablet} activ e amLODIPine Besylate 2.5 MG eCW1 ([facility]) 2.5 mg 10/17/2020 12:00:00 AM EDT tablet 90 TAKE ONE TABLET BY MOUTH EVERY DAY TAKE ONE TABLET BY MOUTH EVERY DAY SOLD: 01/15/2021 [facility] Amlodipine 2.5 MG Oral Tablet AmLODIPine Besylate 2.5 MG AmLODIPine Besylate 2.5 MG 10/17/2020 12:00:00 AM EDT 1.0 {tablet} activ e AmLODIPine Besylate 2.5 MG eCW1 ([facility]) Amlodipine 2.5 MG Oral Tablet amLODIPine Besylate 2.5 MG amLODIPine Besylate 2.5 MG 10/17/2020 12:00:00 AM EDT 1.0 {tablet} activ e amLODIPine Besylate 2.5 MG eCW1 ([facility]) Amlodipine 2.5 MG Oral Tablet amLODIPine Besylate 2.5 MG amLODIPine Besylate 2.5 MG 10/17/2020 12:00:00 AM EDT 1.0 {tablet} activ e amLODIPine Besylate 2.5 MG eCW1 ([facility]) Amlodipine 2.5 MG Oral Tablet amLODIPine Besylate 2.5 MG amLODIPine Besylate 2.5 MG 10/17/2020 12:00:00 AM EDT 1.0 {tablet} activ e amLODIPine Besylate 2.5 MG eCW1 ([facility]) Amlodipine 2.5 MG Oral Tablet amLODIPine Besylate 2.5 MG amLODIPine Besylate 2.5 MG 10/17/2020 12:00:00 AM EDT 1.0 {tablet} activ e amLODIPine Besylate 2.5 MG eCW1 ([facility]) Amlodipine 2.5 MG Oral Tablet AMLODIPINE BESYLATE [...] active Propranolol HCl ER 60 MG eCW1 ([facility]) 60 mg 06/18/2020 12:00:00 AM EST capsule,extended [...] active Propranolol HCl ER 60 MG eCW1 ([facility]) 24 HR Propranolol Hydrochloride 60 MG Ex tended Release Oral Capsule Propranolol HCl ER 60 MG Propranolol HCl ER 60 MG 06/18/2020 12:00:00 AM EST 1.0 {capsule} active Propranolol HCl ER 60 MG eCW1 ([facility]) 60 mg 06/18/2020 12:00:00 AM EST capsule,extended [...] active Propranolol HCl ER 60 MG eCW1 ([facility]) 24 HR Propranolol Hydrochloride 60 MG Ex tended Release Oral Capsule Propranolol HCl ER 60 MG Propranolol HCl ER 60 MG 06/18/2020 12:00:00 AM EST 1.0 {capsule} active Propranolol HCl ER 60 MG eCW1 ([facility]) 80 mg 06/10/2020 12:00:00 AM EST capsule,extended [...] MOUTH EVERY DAY WITH A MEAL SOLD: [facility] 10 mg 09/10/2019 12:00:00 AM EDT [...] Policy Hall Plan Information [employer] [id number] S [id number] [employer] [id number] S [id number] [place] [id number] S [id number] [place] [id number] S [id number] [facility] [id number] SPO [id number] [facility] [id number] SPO [id number] MEDICARE [id number] SP [id number] [facility] [id number] [facility] [place] [id number] [employer] [id number] S [id number] [place] [id number] S [id number] ANSI-Commercial [id number] ANSI-Medicare Part B [id number] ANSI-Medicare Part B [id number] ANSI-Commercial [id number] MEDICARE [id number] SP [id number] B FOR LIFE O [id number] S [id number] MEDICARE C [id number] S [id number] B [place] [id number] S [id number] FOR LIFE [id number] ANSI-Medicare Part B [id number] ANSI-Commercial [id number] ANSI-Medicare Part B [id number] ANSI-Commercial [id number] [employer] [id number] S [id number] Problems, Conditions, and Diagnoses Code Display Name Description Problem Type Effective Dates Data Source(s) Z87.891 Personal history of nicotine dependence PERSONAL HISTORY OF NICOTINE DEPENDENCE Diagnosis 03/18/2021 07:42:00 AM [facility] 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 Diagnosis 03/18/2021 07:42:00 AM [facility] 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), and cerebral infarction without residual deficits PRSNL HX OF TIA (TIA), AND CEREB INFRC W /O RESID D Diagnosis 03/18/2021 07:42:00 AM [facility] Z79.899 Other long-term (current) drug therapy [facility] (CURRENT) DRUG THERAPY Diagnosis 03/18/2021 07:42:00 AM [facility] 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 TAPEMAN (CU RRENT) USE OF ASPIRIN Diagnosis 03/18/2021 07:42:00 AM [facility] E78.00 PURE HYPERCHOLESTEROLEMIA, UNSPECIFIED P URE HYPERCHOLESTEROLEMIA, UNSPECIFIED Diagnosis 03/18/2021 07:42:00 AM [facility] I10 Essential (primary) hypertension ESSENTIAL (PRIMARY) H YPERTENSION Diagnosis 03/18/2021 07:42:00 AM [facility] N95.0 Postmenopausal bleeding POSTMENOPAUSAL BLEEDING Diagno sis 03/18/2021 07:42:00 AM [facility] N93.9 Abnormal uterine and vaginal bleeding, u nspecified ABNORMAL UTERINE AND VAGINAL BLEEDING, UNSPECIFIED Diagnosis 03/18/2021 07:42:00 AM [facility] Y93.89 Activity, other specified ACTIVITY, OTHER SPECIFIED Di agnosis 01/18/2021 02:23:00 AM [facility] Y92.89 Other specified places [address] the place of o ccurrence of the external cause OTH PLACES THE PLACE OF OCCURRENCE OF THE EXTER Diagnosis 02:23:00 AM [facility] T43.595A Adverse effect of other anti psychotics and neuroleptics, initial encounter ADVERSE EFFECT OF OTH ANTIPSYCHOTICS AND NEUROLEPT Diagnosis 01/18/2021 02:23:00 AM [facility] F41.9 Anxiety disorder, unspecified ANXIETY DISORDER, UNSPEC IFIED Diagnosis 01/18/2021 02:23:00 AM [facility] Z01.818 Pre-procedure evaluation check Preop testing Problem 03/23/2021 12:00:00 AM EDT eCW1 ([facility]) R31.0 Gross hematuria Gross hematuria Problem 03/23/2021 12:0 0:00 AM EDT eCW1 ([facility]) N39.0 Urinary tract infectious disease UTI (urinary tract in fection) Problem 03/23/2021 12:00:00 AM EDT eCW1 ([facility]) N32.89 Bladder mass Bladder mass Problem 03/18/2021 12:00:00 A M EDT eCW1 ([facility]) N18.4 [id number] Stage 4 chronic kidney disease Problem 08/15/2020 12:00:00 AM EST eCW1 ([facility]) R44.2 Hallucinations Hallucination, hypnopompic Problem 06/18/2020 12:00:00 AM EST eCW1 ([facility]) I12.9 [id number] Hypertensive chronic kidney disease with stage 1 through stage 4 chronic kidney disease, or unspecified chronic kidney disease Problem 06/18/2020 12:00:00 AM EST eCW1 ([facility]) I12.9 [id number] Hypertensive kidney disease Problem 05/18/20 20 12:00:00 AM EST eCW1 ([facility]) O10.211 [id number] Hypertensive kidney disease affecting in first trimester Problem 05/18/2020 12:00:00 AM EST eCW1 ([facility]) Surgeries/Procedures Procedure Description Date Indications Data Source(s) PC-INTERPRETATION AND REPORT 04/02/2021 12:00:00 AM ED T eCW1 ([facility]) FC-ELECTROCARDIOGRAM, TRACING ONLY 04/02/2021 12:00:00 AM EDT eCW1 ([facility]) Imm: Flublok Quadrivalent 18 years & older 0.5mL IM Influenz a 04/02/2021 12:00:00 AM EDT eCW1 ([facility]) Med: Lidocaine Jelly 2% 6ml Intravesically (Glydo) 03/23/2021 12:00:00 AM EDT eCW1 ([facility]) Immunization: Flublok Quadrivalent (18 years & older) 0.5mL IM (Influenza) 04/09/2020 12:00:00 AM EST eCW1 ([facility]) Results ID Date Data Source FREE T4 & TSH PANEL 04/02/2021 12:00:00 AM EDT eCW1 ([facility]) Name Value Range Interpretation Code Description Data Anabell rce(s) Supporting Document(s) 4.100 0.358-3.740 THYROID STIMULATING HORM ONE eCW1 ([facility]) 1.42 0.76-1.46 FREE T4 eCW1 ([facility]) ID Date Data Source Comprehensive Metabolic Profile (CMP) 04/02/2021 12:00:00 AM EDT eCW1 ([facility]) Name Value Range Interpretation Code Description Data Anabell rce(s) Supporting Document(s) 1.53 0.55-1.30 CREATININE FOR GFR eCW1 ([facility]) 100 70-100 GLUCOSE, FASTING eCW1 ([facility]) 24 7-18 BLOOD UREA NITROGEN eCW1 ([facility]) 34.1 >32 GLOMERULAR FILTRATION RATE eCW 1 ([facility]) 6.1 3.5-5.1 POTASSIUM SERUM eCW1 ([facility]) 108 98-107 CHLORIDE LEVEL eCW1 ([facility]) 136 136-145 SODIUM LEVEL eCW1 ([facility]) 9.4 8.8-10.2 CALCIUM LEVEL eCW1 ([facility]) 26 21-32 CARBON DIOXIDE LEVEL eCW1 ([facility]) 16 12-78 ALT/SGPT eCW1 ([facility]) 21 7-37 AST/SGOT eCW1 ([facility]) 7.3 6.4-8.2 TOTAL PROTEIN eCW1 ([facility]) 199 45-117 ALKALINE PHOSPHATASE eCW1 ([facility]) 0.5 0.2-1.0 BILIRUBIN,TOTAL eCW1 ([facility]) 3.5 3.2-5.2 ALBUMIN eCW1 ([facility]) 0.9 1.2-2.2 ALBUMIN/GLOBULIN RATIO eCW1 ([facility]) ID Date Data Source [id number] 03/18/2021 09:58:00 AM EDT [facility] Patient: ALEXANDER SIFUENTES Observat ion Report - [facility] [place].VisitID: [id number] [place] [address] [phone], FRegistration Date/Time: 03/18/2021 06:41 Weight:40.8 kg (S). [...] rce(s) Supporting Document(s) ID Date Data Source [id number] 03/18/2021 08:53:00 AM EDT [facility] [...] rce(s) Supporting Document(s) ID Date Data Source [id number] 03/20/2021 12:39:00 PM EDT [facility] indira Name Value Range Interpretation Code Description Data Anabell rce(s) Supporting Document(s) ORGANISM [facility] COLONY COUNT N [facility] ID Date Data Source [id number] 03/18/2021 08:24:00 AM EDT [facility] TSYSORDER [id number] Name Value Range Interpretation Code Description Data Anabell rce(s) Supporting Document(s) URINE RBC TNTC /hpf 0-3 H [facility] URINE WBC 5-10 /hpf 0-5 H [facility] URINE EPITHELIAL CELLS NONE SEEN /hpf 0 [facility] URINE BACTERIA 1+ NONE SEEN [facility] ID Date Data Source [id number] 03/18/2021 08:22:00 AM EDT [facility] TSYSORDER [id number] Name Value Range Interpretation Code Description Data Anabell rce(s) Supporting Document(s) URINE COLOR. RED [facility] URINE APPEARANCE TURBID [facility] URINE GLUCOSE (UA) NEGATIVE mg/dL NEGATIVE [facility] URINE BILIRUBIN NEGATIVE NEGATIVE [facility] URINE KETONE NEGATIVE mg/dL NEGATIVE [facility] SPECIFIC GRAVITY,URINE 1.025 1.005-1.030 [facility] URINE BLOOD 3+(LARGE) NEGATIVE [facility] PH,URINE 8.5 5.0-9.0 [facility] URINE PROTEIN 4+(>=300) mg/dL NEGATIVE [facility] ital URINE UROBILINOGEN NORMAL(0.2-1) mg/dL 0-1 [facility] URINE NITRATE NEGATIVE NEGATIVE [facility] URINE LEUKOCYTE ESTERASE 1+(SMALL) NEGATIVE [facility] ID Date Data Source [id number] 03/18/2021 07:57:00 AM EDT [facility] TSYSORDER [id number] Name Value Range Interpretation Code Description Data Anabell rce(s) Supporting Document(s) FREE T4 1.46 ng/dL 0.76-1.46 [facility] ID Date Data Source [id number] 03/18/2021 07:57:00 AM EDT [facility] TSYSORDER [id number] Name Value Range Interpretation Code Description Data Anabell rce(s) Supporting Document(s) TSH 6.404 uIU/mL 0.358-3.74 H [facility] ID Date Data Source [id number] 03/18/2021 07:41:00 AM EDT [facility] TSYSORDER [id number] Name Value Range Interpretation Code Description Data Anabell rce(s) Supporting Document(s) PARTIAL THROMBOPLASTIN TIME 24.5 SECONDS 21.2-27.3 [facility] ID Date Data Source [id number] 03/18/2021 07:41:00 AM EDT [facility] TSYSORDER [id number] Name Value Range Interpretation Code Description Data Anabell rce(s) Supporting Document(s) PROTHROMBIN TIME (PATIENT) 9.6 SECONDS 9.1-11.6 [facility] INR 0.92 0.87-1.06 [facility] ID Date Data Source [id number] 03/18/2021 07:36:00 AM EDT [facility] TSYSORDER [id number] Name Value Range Interpretation Code Description Data Anabell rce(s) Supporting Document(s) MAGNESIUM 2.2 mg/dL 1.8-2.4 [facility] ID Date Data Source [id number] 03/18/2021 07:36:00 AM EDT [facility] TSYSORDER [id number] Name Value Range Interpretation Code Description Data Anabell rce(s) Supporting Document(s) GLUCOSE 112 mg/dL 74-106 H [facility] BLOOD UREA NITROGEN 19 mg/dL 7-18 H [facility] ital CREATININE 1.57 mg/dL 0.6-1.0 H [facility] SODIUM 138 mmol/L 136-145 [facility] POTASSIUM 4.8 mmol/L 3.5-5.1 [facility] CHLORIDE 102 mmol/L 98-107 [facility] CO2 30 mmol/L 21-32 [facility] CALCIUM 9.5 mg/dL 8.5-10.1 [facility] ANION GAP 6.0 mmol/L 5-12 [facility] GLOMERULAR FILTRATION RATE 31 mL/min [facility] GFR IS CALCULATED IN mL/min/1.73m2 MIKE L FUNCTION: >90MILDLY DECREASED: 60-89MILDY TO MODERATELY DECREASED: 45-59 MODERATELY TO SEVERELY DECREASED: 30-44SEVERELY DECREASED: 15-29RENAL FAILURE: <15 AST 11 U/L 15-37 L [facility] ALT 18 U/L 12-78 [facility] ALKALINE PHOSPHATASE 232 U/L 46-116 H [facility] TOTAL BILIRUBIN 0.6 mg/dL 0.2-1.0 [facility] TOTAL PROTEIN 8.5 g/dl 6.4-8.2 H [facility] ALBUMIN 4.0 gm/dL 3.4-5.0 [facility] ID Date Data Source [id number] 03/18/2021 07:16:00 AM EDT [facility] TSYSORDER [id number] Name Value Range Interpretation Code Description Data Anabell rce(s) Supporting Document(s) WHITE BLOOD COUNT 12.6 K/mm3 4.0-10.0 H [facility] indira RED BLOOD COUNT 4.25 M/mm3 4.00-5.50 [facility] HEMOGLOBIN 14.0 gm/dL 12.0-16.0 [facility] HEMATOCRIT 41.6 % 36.0-48.8 [facility] MEAN CELL VOLUME 97.9 fl 80-96 H [facility] MEAN CORPUSCULAR HEMOGLOBIN 32.9 pg 27.0-31.0 H [facility] MEAN CORPUSCULAR HGB CONC 33.7 g/dl 32.0-36.0 [facility] RED CELL DISTRIBUTION WIDTH 13.0 % 10.0-14.5 [facility] PLATELET COUNT 402 K/mm3 172-450 [facility] MEAN PLATELET VOLUME 9.2 fl 9.0-13.0 [facility] pital GRAN % 69.4 % 50-80.0 [facility] IG% 0.4 % 0.0-0.2 H [facility] LYMPH % 16.6 % 25.0-50.0 L [facility] MONO % 9.0 % 2.0-10.0 [facility] EOS % 4.1 % 0-5.0 [facility] BASO % 0.5 % 0.0-2.0 [facility] GRAN # 8.7 K/mm3 2.0-8.00 H [facility] IG# 0.1 K/mm3 0.0-0.2 [facility] LYMPH # 2.1 K/mm3 1.0-5.0 [facility] MONO # 1.1 K/mm3 0.10-1.20 [facility] EOS # 0.5 K/mm3 0.0-0.5 [facility] BASO # 0.1 K/mm3 0.0-0.2 [facility] ID Date Data Source [id number] 01/19/2021 08:28:00 PM EDT [facility] Patient: ALEXANDER SIFUENTES Observat ion Report - [facility] [place].VisitID: [id number] [place] [address] [phone], [facility] [place] Date/Time: 01/18/2021 01:13 Weight:41.7 kg. Height/Length:61 inches [...] rce(s) Supporting Document(s) ID Date Data Source [id number] 01/18/2021 07:53:00 AM [facility] WITHOUT CONTRAST DATE OF [...] rce(s) Supporting Document(s) ID Date Data Source [id number] 01/18/2021 07:47:00 AM EDT [facility] [...] rce(s) Supporting Document(s) ID Date Data Source [id number] 01/18/2021 03:15:00 AM EDT [facility] [id number] Name Value Range Interpretation Code Description Data Anabell rce(s) Supporting Document(s) FREE T4 1.8 ng/dL 0.76-1.46 H [facility] ID Date Data Source [id number] 01/18/2021 03:15:00 AM EDT [facility] T[facility] [id number] Name Value Range Interpretation Code Description Data Anabell rce(s) Supporting Document(s) TSH 3.504 uIU/mL 0.360-3.740 [facility] ID Date Data Source [id number] 01/18/2021 03:01:00 AM EDT [facility] TSYSORDER [id number] Name Value Range Interpretation Code Description Data Anabell rce(s) Supporting Document(s) MAGNESIUM 2.3 mg/dL 1.8-2.4 [facility] ID Date Data Source [id number] 01/18/2021 03:01:00 AM EDT [facility] TSYSORDER [id number] Name Value Range Interpretation Code Description Data Anabell rce(s) Supporting Document(s) LIPASE 246 U/L 73-393 [facility] ID Date Data Source [id number] 01/18/2021 03:01:00 AM EDT [facility] TSYSORDER [id number] Name Value Range Interpretation Code Description Data Anabell rce(s) Supporting Document(s) TROPONIN-HIGH SENSITIVITY 7.2 ng/L 0-60.4 [facility] ID Date Data Source [id number] 01/18/2021 03:01:00 AM EDT [facility] TSYSORDER [id number] Name Value Range Interpretation Code Description Data Anabell rce(s) Supporting Document(s) GLUCOSE 109 mg/dL 74-106 H [facility] BLOOD UREA NITROGEN 28 mg/dL 7-18 H [facility] CREATININE 1.55 mg/dL 0.6-1.0 H [facility] SODIUM 142 mmol/L 136-145 [facility] POTASSIUM 4.4 mmol/L 3.5-5.1 [facility] CHLORIDE 104 mmol/L 98-107 [facility] CO2 25 mmol/L 21-32 [facility] CALCIUM 9.3 mg/dL 8.5-10.1 [facility] ANION GAP 13.0 mmol/L 5-12 H [facility] GLOMERULAR FILTRATION RATE 32 mL/min [facility] GFR IS CALCULATED IN mL/min/1.73m2 MIKE L FUNCTION: >90MILDLY DECREASED: 60-89MILDY TO MODERATELY DECREASED: 45-59 MODERATELY TO SEVERELY DECREASED: 30-44SEVERELY DECREASED: 15-29RENAL FAILURE: <15 AST 15 U/L 15-37 [facility] ALT 17 U/L 12-78 [facility] ALKALINE PHOSPHATASE 254 U/L 46-116 H [facility] pital TOTAL BILIRUBIN 0.5 mg/dL 0.2-1.0 [facility] TOTAL PROTEIN 8.0 g/dl 6.4-8.2 [facility] ALBUMIN 4.0 gm/dL 3.4-5.0 [facility] ID Date Data Source [id number] 01/18/2021 02:52:00 AM EDT [facility] TSYSORDER [id number] Name Value Range Interpretation Code Description Data Anabell rce(s) Supporting Document(s) PARTIAL THROMBOPLASTIN TIME 24.1 SECONDS 21.2-27.3 [facility] ID Date Data Source [id number] 01/18/2021 02:52:00 AM EDT [facility] TSYSORDER [id number] Name Value Range Interpretation Code Description Data Anabell rce(s) Supporting Document(s) PROTHROMBIN TIME (PATIENT) 9.9 SECONDS 9.1-11.6 [facility] INR 0.95 0.87-1.06 [facility] ID Date Data Source [id number] 01/18/2021 02:34:00 AM T [facility] TSYSORDER [id number] Name Value Range Interpretation Code Description Data Anabell rce(s) Supporting Document(s) WHITE BLOOD COUNT 13.1 K/mm3 4.0-10.0 H [facility] indira RED BLOOD COUNT 4.28 M/mm3 4.00-5.50 [facility] HEMOGLOBIN 14.0 gm/dL 12.0-16.0 [facility] HEMATOCRIT 40.8 % 36.0-48.8 [facility] MEAN CELL VOLUME 95.3 fl 80-96 [facility] MEAN CORPUSCULAR HEMOGLOBIN 32.7 pg 27.0-31.0 H [facility] MEAN CORPUSCULAR HGB CONC 34.3 g/dl 32.0-36.0 [facility] RED CELL DISTRIBUTION WIDTH 12.9 % 10.0-14.5 [facility] PLATELET COUNT 308 K/mm3 172-450 [facility] MEAN PLATELET VOLUME 9.7 fl 9.0-13.0 [facility] GRAN % 71.2 % 50-80.0 [facility] IG% 0.2 % 0.0-0.2 [facility] LYMPH % 14.5 % 25.0-50.0 L [facility] MONO % 10.4 % 2.0-10.0 H [facility] EOS % 3.3 % 0-5.0 [facility] BASO % 0.4 % 0.0-2.0 [facility] GRAN # 9.3 K/mm3 2.0-8.00 H [facility] IG# 0.0 K/mm3 0.0-0.2 [facility] LYMPH # 1.9 K/mm3 1.0-5.0 [facility] MONO # 1.4 K/mm3 0.10-1.20 H [facility] EOS # 0.4 K/mm3 0.0-0.5 [facility] BASO # 0.1 K/mm3 0.0-0.2 [facility] Procedure Social History Code Duration Value Status Description Data Source(s ) Smoking 04/02/2021 12:00:00 AM EDT Former Smoker completed Former Smoker eCW1 ([facility]) Smoking 04/02/2021 12:00:00 AM EDT Former Smoker completed Former Smoker eCW1 ([facility]) Smoking 04/02/2021 12:00:00 AM EDT Former Smoker completed Former Smoker eCW1 ([facility]) Smoking 04/02/2021 12:00:00 AM EDT Former Smoker completed Former Smoker eCW1 ([facility]) Smoking 03/23/2021 12:00:00 AM EDT Former Smoker completed Former Smoker eCW1 ([facility]) Smoking 03/23/2021 12:00:00 AM EDT Former Smoker completed Former Smoker eCW1 ([facility]) Smoking 03/23/2021 12:00:00 AM EDT Former Smoker completed Former Smoker eCW1 ([facility]) Smoking 03/20/2021 12:00:00 AM EDT Former Smoker completed Former Smoker eCW1 ([facility]) Smoking 02/18/2021 12:00:00 AM EDT Former Smoker completed Former Smoker eCW1 ([facility]) Smoking 01/20/2021 12:00:00 AM EDT Former Smoker completed Former Smoker eCW1 ([facility]) Smoking 01/20/2021 12:00:00 AM EDT Former Smoker completed Former Smoker eCW1 ([facility]) Smoking 01/14/2021 12:00:00 AM EDT Former Smoker completed Former Smoker eCW1 ([facility]) Smoking 01/14/2021 12:00:00 AM EDT Former Smoker completed Former Smoker eCW1 ([facility]) Smoking 10/17/2020 12:00:00 AM EDT Former Smoker completed Former Smoker eCW1 ([facility]) Smoking 10/17/2020 12:00:00 AM EDT Former Smoker completed Former Smoker eCW1 ([facility]) Smoking 08/15/2020 12:00:00 AM EST Former Smoker completed Former Smoker eCW1 ([facility]) Smoking 08/15/2020 12:00:00 AM EST Former Smoker completed Former Smoker eCW1 ([facility]) Smoking 06/18/2020 12:00:00 AM EST Former Smoker completed Former Smoker eCW1 ([facility]) Smoking 06/18/2020 12:00:00 AM EST Former Smoker completed Former Smoker eCW1 ([facility]) Vital Signs ID Date Data Source [id number] Name Value Range Interpretation Code Description Data Source(s) Body weight 88.4 [lb_av] 88.4 [lb_av] eCW1 ([facility]) Body height 61.5 [in_i] 61.5 [in_i] eCW1 ([facility]) Body mass index (BMI) [Ratio] 16.43 kg/m2 16.43 kg/m2 eCW1 ([facility]) Heart rate 72 /min 72 /min eCW1 ([facility]) Respiratory rate 18 /min 18 /min eCW1 ([facility]) Body temperature 98 [degF] 98 [degF] eCW1 ([facility]) Systolic blood pressure 124 mm[Hg] 124 mm[Hg] e CW1 ([facility]) Diastolic blood pressure 74 mm[Hg] 74 mm[Hg] eCW1 ([facility]) Body weight 86 [lb_av] 86 [lb_av] eCW1 ([facility]) Diastolic blood pressure 62 mm[Hg] 62 mm[Hg] eCW1 ([facility]) Body weight 39.01 kg 39.01 kg eCW1 ([facility]) Body height 61.5 [in_i] 61.5 [in_i] eCW1 ([facility]) Body mass index (BMI) [Ratio] 15.98 kg/m2 15.98 kg/m2 eCW1 ([facility]) Heart rate 72 /min 72 /min eCW1 ([facility]) Respiratory rate 18 /min 18 /min eCW1 ([facility]) Body temperature 97.6 [degF] 97.6 [degF] eCW1 ( [facility]) Systolic blood pressure 112 mm[Hg] 112 mm[Hg] e CW1 ([facility]) Body weight [lb_av] eCW1 ([facility]) Body weight 39.01 kg 39.01 kg eCW1 ([facility]) Body height 61.5 [in_i] 61.5 [in_i] eCW1 ([facility]) Body mass index (BMI) [Ratio] 15.98 kg/m2 15.98 kg/m2 eCW1 ([facility]) Heart rate 75 /min 75 /min eCW1 ([facility]) Respiratory rate 18 /min 18 /min eCW1 ([facility]) Body temperature 97.8 [degF] 97.8 [degF] eCW1 ( [facility]) Systolic blood pressure 95 mm[Hg] 95 mm[Hg] e CW1 ([facility]) Diastolic blood pressure 55 mm[Hg] 55 mm[Hg] eCW1 ([facility]) Body weight 86 [lb_av] 86 [lb_av] eCW1 ([facility]) Body temperature 97.1 [degF] 97.1 [degF] eCW1 ( [facility]) Systolic blood pressure 142 mm[Hg] 142 mm[Hg] e CW1 ([facility]) Diastolic blood pressure 68 mm[Hg] 68 mm[Hg] eCW1 ([facility]) Body weight 39.01 kg 39.01 kg eCW1 ([facility]) Body height 61.5 [in_i] 61.5 [in_i] eCW1 ([facility]) Body mass index (BMI) [Ratio] 15.98 kg/m2 15.98 kg/m2 eCW1 ([facility]) Heart rate 84 /min 84 /min eCW1 ([facility]) Respiratory rate 18 /min 18 /min eCW1 ([facility]) Body weight 89.8 [lb_av] 89.8 [lb_av] eCW1 ([facility]) Body height 61.5 [in_i] 61.5 [in_i] eCW1 ([facility]) Body mass index (BMI) [Ratio] 16.69 kg/m2 16.69 kg/m2 eCW1 ([facility]) Heart rate 78 /min 78 /min eCW1 ([facility]) Respiratory rate 18 /min 18 /min eCW1 ([facility]) Body temperature 97.8 [degF] 97.8 [degF] eCW1 ( [facility]) Systolic blood pressure 144 mm[Hg] 144 mm[Hg] e CW1 ([facility]) Diastolic blood pressure 60 mm[Hg] 60 mm[Hg] eCW1 ([facility]) Body weight 90.8 [lb_av] 90.8 [lb_av] eCW1 ([facility]) Body height 61.5 [in_i] 61.5 [in_i] eCW1 ([facility]) Body mass index (BMI) [Ratio] 16.88 kg/m2 16.88 kg/m2 eCW1 ([facility]) Heart rate 76 /min 76 /min eCW1 ([facility]) Respiratory rate 20 /min 20 /min eCW1 ([facility]) Body temperature 97.8 [degF] 97.8 [degF] eCW1 ( [facility]) Systolic blood pressure 150 mm[Hg] 150 mm[Hg] e CW1 ([facility]) Diastolic blood pressure 77 mm[Hg] 77 mm[Hg] eCW1 ([facility]) Body weight 92.8 [lb_av] 92.8 [lb_av] eCW1 ([facility]) Body height 61.5 [in_i] 61.5 [in_i] eCW1 ([facility]) Body mass index (BMI) [Ratio] 18.4 kg/m2 18.4 k g/m2 eCW1 ([facility]) Heart rate 72 /min 72 /min eCW1 ([facility]) Respiratory rate 18 /min 18 /min eCW1 ([facility]) Body temperature 97.8 [degF] 97.8 [degF] eCW1 ( [facility]) Systolic blood pressure 151 mm[Hg] 151 mm[Hg] e CW1 ([facility]) Diastolic blood pressure 76 mm[Hg] 76 mm[Hg] eCW1 ([facility]) Body weight 94.12 [lb_av] 94.12 [lb_av] eCW1 ([facility]) Body height 61.5 [in_i] 61.5 [in_i] eCW1 ([facility]) Body mass index (BMI) [Ratio] 17.49 kg/m2 17.49 kg/m2 eCW1 ([facility]) Heart rate 85 /min 85 /min eCW1 ([facility]) Respiratory rate 18 /min 18 /min eCW1 ([facility]) Diastolic blood pressure 80 mm[Hg] 80 mm[Hg] eCW1 ([facility]) Body temperature 97.8 [degF] 97.8 [degF] eCW1 ( [facility]) Systolic blood pressure 124 mm[Hg] 124 mm[Hg] e CW1 ([facility]) Body weight 96.8 [lb_av] 96.8 [lb_av] eCW1 ([facility]) Body height 61.5 [in_i] 61.5 [in_i] eCW1 ([facility]) Body mass index (BMI) [Ratio] 17.99 kg/m2 17.99 kg/m2 eCW1 ([facility]) Heart rate 70 /min 70 /min eCW1 ([facility]) Respiratory rate 18 /min 18 /min eCW1 ([facility]) Body temperature 98 [degF] 98 [degF] eCW1 ([facility]) Systolic blood pressure 126 mm[Hg] 126 mm[Hg] e CW1 ([facility]) Diastolic blood pressure 72 mm[Hg] 72 mm[Hg] eCW1 ([facility]) Body weight 98.4 [lb_av] 98.4 [lb_av] eCW1 ([facility]) Body height 61.5 [in_i] 61.5 [in_i] eCW1 ([facility]) Body mass index (BMI) [Ratio] 18.29 kg/m2 18.29 kg/m2 eCW1 ([facility]) Heart rate 69 /min 69 /min eCW1 ([facility]) Respiratory rate 18 /min 18 /min eCW1 ([facility]) Body temperature 98 [degF] 98 [degF] eCW1 ([facility]) Systolic blood pressure 124 mm[Hg] 124 mm[Hg] e CW1 ([facility]) Diastolic blood pressure 73 mm[Hg] 73 mm[Hg] eCW1 ([facility]) Patient Treatment Plan of Care Planned Activity Planned Date Details Description Data Source (s) Sulfamethoxazole 800 MG / Trimethoprim 160 MG Oral Tab let [Bactrim] 04/06/2021 12:00:00 AM EDT eCW1 ([facility]) Sulfamethoxazole 800 MG / Trimethoprim 160 MG Oral Tab let [Bactrim] 04/06/2021 12:00:00 AM EDT eCW1 ([facility]) Walker - 04/03/2021 12:00:00 AM EDT e CW1 ([facility]) Walker - 04/03/2021 12:00:00 AM EDT e CW1 ([facility]) Walker - 04/03/2021 12:00:00 AM EDT e CW1 ([facility]) Lidocaine Hydrochloride 40 MG/ML Topical Cream 02/18/2021 12:00:00 AM EDT eCW1 ([facility]) Diclofenac Sodium 0.01 MG/MG Topical Gel [Voltaren] 01/15/20 12:00:00 AM EDT eCW1 ([facility]) buspirone hydrochloride 5 MG Oral Tablet 01/14/2021 12:00:00 AM EDT eCW1 ([facility]) Diclofenac Sodium 0.01 MG/MG Topical Gel [Voltaren] 01/15/20 12:00:00 AM EDT eCW1 ([facility]) buspirone hydrochloride 5 MG Oral Tablet 01/14/2021 12:00:00 AM EDT eCW1 ([facility]) Amlodipine 2.5 MG Oral Tablet 10/17/2020 12:00:00 AM EDT eCW1 ([facility]) Amlodipine 2.5 MG Oral Tablet 10/17/2020 12:00:00 AM EDT eCW1 ([facility]) Amlodipine 2.5 MG Oral Tablet 10/17/2020 12:00:00 AM EDT eCW1 ([facility]) Amlodipine 2.5 MG Oral Tablet 10/17/2020 12:00:00 AM EDT eCW1 ([facility]) 24 HR Propranolol Hydrochloride 60 MG Extended Release Oral Capsule 06/18/2020 12:00:00 AM EST eCW1 ([facility]) 24 HR Propranolol Hydrochloride 60 MG Extended Release Oral Capsule 06/18/2020 12:00:00 AM EST eCW1 ([facility]) 24 HR Propranolol Hydrochloride 60 MG Extended Release Oral Capsule 06/18/2020 12:00:00 AM EST eCW1 ([facility])
--- OUTSIDE RECORDS SUMMARY | 2021-04-14 02:09 | CCD ---
Author Author [facility] Organization [facility] Address Unknown Phone Unavailable Care Team Providers Care Plater Hot Dip Name Role Phone Carissa Posadas MD Unavailable [...] is protected by Article 27-F of the [facility] Public Health law. If you continue you may have access to information: Regarding HIV / AIDS; Provided by facilities licensed or operated by the [facility] Office of Mental Health; or Provided by the [facility] Office for People With Developmental Disabilities. If such information is present, then the following [facility] mandated warning applies: This information has been [...] law may result in a fine or shelter sentence or both. A general authorization for the release of medical or other information is NOT sufficient authorization for further disc losure. Encounters Encounter Providers Location Date Indications Data Source(s ) Unknown [address] [facility] [address] [facility] [address] 04/06/2021 12:00:00 AM EDT eCW1 ([facility]) Unknown [address] [facility] [address] [facility] [address] 04/03/2021 12:00:00 AM EDT eCW1 ([facility]) Outpatient [address] [facility] [address] [facility] [address] 04/02/2021 12:00:00 AM EDT [facility] Unknown [address] [facility] [address] [facility] [address] 04/02/2021 12:00:00 AM EDT [facility]CW1 [facility]) Unknown [address] [facility] [address] [facility] [address] 04/01/2021 12:00:00 AM EDT eCW1 ([facility]) (Cysto1) Urology [address] [place] [address] 03/23/2021 12:00:00 AM EDT eCW1 [facility]) Outpatient [address] [facility] [address] [facility] [address] 03/20/2021 12:00:00 AM EDT eCW1 [facility]) Outpatient Attender: Desean Negro DOConsultant: Monteagle Yuniel [id number] 03/18/2021 09:10:00 AM EDT [facility] Emergency Attender: Desean Deanerrer: Arben Ferrer EMERGENCY ROOM-ER 03/18/2021 07:42:00 AM EDT - 03/18/2021 09:28:00 AM EDT [facility] Patient discharged. Outpatient [address] [facility] [address] [facility] [address] 03/18/2021 12:00:00 AM EDT eCW1 [facility]) Outpatient [address] [facility] [address] [facility] [address] 02/18/2021 12:00:00 AM EDT eCW1 [facility]) Unknown [address] [facility] [address] [facility] [address] 01/22/2021 12:00:00 AM EDT eCW1 [facility]) Outpatient [address] [facility] [address] [facility] [address] 01/20/2021 12:00:00 AM EDT eCW1 ([facility]) Emergency Attender: MICHAEL Cedenoer : Arben Posadas MD EMERGENCY ROOM-ER 01/18/2021 02:23:00 AM EDT - 01/18/2021 04:54:00 AM EDT [facility] Patient discharged. Unknown [address] [facility] [address] [facility] [address] 01/15/2021 12:00:00 AM EDT eCW1 ([facility]) Outpatient [address] [facility] [address] [facility] [address] 01/14/2021 12:00:00 AM EDT eCW1 ([facility]) Unknown [address] [facility] [address] [facility] [address] 01/13/2021 12:00:00 AM EDT eCW1 ([facility]) Outpatient [address] [facility] [address] [facility] [address] 10/17/2020 12:00:00 AM EDT eCW1 ([facility]) Unknown [address] [facility] [address] [facility] [address] 09/17/2020 12:00:00 AM EDT eCW1 ([facility]) Outpatient [address] [facility] [address] [facility] [address] 08/15/2020 12:00:00 AM EST eCW1 ([facility]) Unknown [address] [facility] [address] [facility] [address] 08/05/2020 12:00:00 AM EST eCW1 ([facility]) Outpatient [address] [facility] [address] [facility] [address] 06/18/2020 12:00:00 AM EST eCW1 ([facility]) Unknown [address] [facility] [address] [facility] [address] 06/09/2020 12:00:00 AM EST eCW1 ([facility]) Unknown [address] [facility] [address] [facility] [address] 05/18/2020 12:00:00 AM EST eCW1 ([facility]) Unknown [address] [facility] [address] [facility] [address] 04/17/2020 12:00:00 AM EST eCW1 ([facility]) Outpatient [address] [facility] [address] [facility] [address] 04/09/2020 12:00:00 AM EST eCW1 ([facility]) Unknown [address] [facility] [address] [facility] [address] 04/04/2020 12:00:00 AM EDT eCW1 ([facility]) [facility] [address] [facility] [address] [facility] [address] 02/21/2020 12:00:00 AM EDT eCW1 ([facility]) Outpatient Attender: Arben Posadas MD 04/05/2018 10:00:00 AM [facility] Immunizations Vaccine Date Status Description Data Source(s) influenza, recombinant, quadrIvalent,injectable, prese rvative free 04/02/2021 11:02:00 AM EDT completed eCW1 ([facility]) influenza, recombinant, quadrIvalent,injectable, prese rvative free 04/02/2021 11:02:00 AM EDT completed eCW1 ([facility]) influenza, recombinant, quadrIvalent,injectable, prese rvative free 04/02/2021 11:02:00 AM EDT completed eCW1 ([facility]) influenza, recombinant, quadrIvalent,injectable, prese rvative free 04/02/2021 11:02:00 AM EDT completed eCW1 ([facility]) COVID-19 dose #2 given elsewhere Unspecified 09/01/2020 07:2 0:00 AM EDT completed eCW1 ([facility]) COVID-19 dose #2 given elsewhere Unspecified 09/01/2020 07:2 0:00 AM EDT completed eCW1 ([facility]) COVID-19 dose #2 given elsewhere Unspecified 09/01/2020 07:2 0:00 AM EDT completed eCW1 ([facility]) COVID-19 dose #2 given elsewhere Unspecified 09/01/2020 07:2 0:00 AM EDT completed eCW1 ([facility]) COVID-19 dose #2 given elsewhere Unspecified 09/01/2020 07:2 0:00 AM EDT completed eCW1 ([facility]) COVID-19 dose #2 given elsewhere Unspecified 09/01/2020 07:2 0:00 AM EDT completed eCW1 ([facility]) COVID-19 dose #2 given elsewhere Unspecified 09/01/2020 07:2 0:00 AM EDT completed eCW1 ([facility]) COVID-19 dose #2 given elsewhere Unspecified 09/01/2020 07:2 0:00 AM EDT completed eCW1 ([facility]) COVID-19 dose #2 given elsewhere Unspecified 09/01/2020 07:2 0:00 AM EDT completed eCW1 ([facility]) COVID-19 dose #2 given elsewhere Unspecified 09/01/2020 07:2 0:00 AM EDT completed eCW1 ([facility]) COVID-19 dose #2 given elsewhere Unspecified 09/01/2020 07:2 0:00 AM EDT completed eCW1 ([facility]) COVID-19 dose #2 given elsewhere Unspecified 09/01/2020 07:2 0:00 AM EDT completed eCW1 ([facility]) COVID-19 dose #2 given elsewhere Unspecified 09/01/2020 07:2 0:00 AM EDT completed eCW1 ([facility]) COVID-19 dose #2 given elsewhere Unspecified 09/01/2020 07:2 0:00 AM EDT completed eCW1 ([facility]) COVID-19 dose #2 given elsewhere Unspecified 09/01/2020 07:2 0:00 AM EDT completed eCW1 ([facility]) COVID-19 VACCINE Moderna 09/01/2020 12:00:00 AM EDT completed [facility] Vaccine Series Complete: YESThis Data wa s Submitted to [facility] [employer]. COVID-19 VACCINE, MRNA-1273, LNP-S (MODERNA)/PF 09/01/2020 1 2:00:00 AM EDT completed [facility] COVID-19 dose #1 given elsewhere Unspecified 07/31/2020 08:3 3:00 AM EST completed eCW1 ([facility]) COVID-19 dose #1 given elsewhere Unspecified 07/31/2020 08:3 3:00 AM EST completed eCW1 ([facility]) COVID-19 dose #1 given elsewhere Unspecified 07/31/2020 08:3 3:00 AM EST completed eCW1 ([facility]) COVID-19 dose #1 given elsewhere Unspecified 07/31/2020 08:3 3:00 AM EST completed eCW1 ([facility]) COVID-19 dose #1 given elsewhere Unspecified 07/31/2020 08:3 3:00 AM EST completed eCW1 ([facility]) COVID-19 dose #1 given elsewhere Unspecified 07/31/2020 08:3 3:00 AM EST completed eCW1 ([facility]) COVID-19 dose #1 given elsewhere Unspecified 07/31/2020 08:3 3:00 AM EST completed eCW1 ([facility]) COVID-19 dose #1 given elsewhere Unspecified 07/31/2020 08:3 3:00 AM EST completed eCW1 ([facility]) COVID-19 dose #1 given elsewhere Unspecified 07/31/2020 08:3 3:00 AM EST completed eCW1 ([facility]) COVID-19 dose #1 given elsewhere Unspecified 07/31/2020 08:3 3:00 AM EST completed eCW1 ([facility]) COVID-19 dose #1 given elsewhere Unspecified 07/31/2020 08:3 3:00 AM EST completed eCW1 ([facility]) COVID-19 dose #1 given elsewhere Unspecified 07/31/2020 08:3 3:00 AM EST completed eCW1 ([facility]) COVID-19 dose #1 given elsewhere Unspecified 07/31/2020 08:3 3:00 AM EST completed eCW1 ([facility]) COVID-19 dose #1 given elsewhere Unspecified 07/31/2020 08:3 3:00 AM EST completed eCW1 ([facility]) COVID-19 dose #1 given elsewhere Unspecified 07/31/2020 08:3 3:00 AM EST completed eCW1 ([facility]) COVID-19 dose #1 given elsewhere Unspecified 07/31/2020 08:3 3:00 AM EST completed eCW1 ([facility]) COVID-19 dose #1 given elsewhere Unspecified 07/31/2020 08:3 3:00 AM EST completed eCW1 ([facility]) COVID-19 VACCINE, MRNA-1273, LNP-S (MODERNA)/PF 07/31/2020 1 2:00:00 AM EST completed [facility] influenza, recombinant, quadrIvalent,injectable, prese rvative free 04/09/2020 08:55:00 AM EST completed eCW1 ([facility]) influenza, recombinant, quadrIvalent,injectable, prese rvative free 04/09/2020 08:55:00 AM EST completed eCW1 ([facility]) influenza, recombinant, quadrIvalent,injectable, prese rvative free 04/09/2020 08:55:00 AM EST completed eCW1 ([facility]) influenza, recombinant, quadrIvalent,injectable, prese rvative free 04/09/2020 08:55:00 AM EST completed eCW1 ([facility]) influenza, recombinant, quadrIvalent,injectable, prese rvative free 04/09/2020 08:55:00 AM EST completed eCW1 ([facility]) influenza, recombinant, quadrIvalent,injectable, prese rvative free 04/09/2020 08:55:00 AM EST completed eCW1 ([facility]) influenza, recombinant, quadrIvalent,injectable, prese rvative free 04/09/2020 08:55:00 AM EST completed eCW1 ([facility]) influenza, recombinant, quadrIvalent,injectable, prese rvative free 04/09/2020 08:55:00 AM EST completed eCW1 ([facility]) influenza, recombinant, quadrIvalent,injectable, prese rvative free 04/09/2020 08:55:00 AM EST completed eCW1 ([facility]) influenza, recombinant, quadrIvalent,injectable, prese rvative free 04/09/2020 08:55:00 AM EST completed eCW1 ([facility]) influenza, recombinant, quadrIvalent,injectable, prese rvative free 04/09/2020 08:55:00 AM EST completed eCW1 ([facility]) influenza, recombinant, quadrIvalent,injectable, prese rvative free 04/09/2020 08:55:00 AM EST completed eCW1 ([facility]) influenza, recombinant, quadrIvalent,injectable, prese rvative free 04/09/2020 08:55:00 AM EST completed eCW1 ([facility]) influenza, recombinant, quadrIvalent,injectable, prese rvative free 04/09/2020 08:55:00 AM EST completed eCW1 ([facility]) influenza, recombinant, quadrIvalent,injectable, prese rvative free 04/09/2020 08:55:00 AM EST completed eCW1 ([facility]) influenza, recombinant, quadrIvalent,injectable, prese rvative free 04/09/2020 08:55:00 AM EST completed eCW1 ([facility]) influenza, recombinant, quadrIvalent,injectable, prese rvative free 04/09/2020 08:55:00 AM EST completed eCW1 ([facility]) influenza, recombinant, quadrIvalent,injectable, prese rvative free 04/09/2020 08:55:00 AM EST completed eCW1 ([facility]) influenza, recombinant, quadrIvalent,injectable, prese rvative free 04/09/2020 08:55:00 AM EST completed eCW1 ([facility]) influenza, recombinant, quadrIvalent,injectable, prese rvative free 04/09/2020 08:55:00 AM EST completed eCW1 ([facility]) influenza, recombinant, quadrIvalent,injectable, prese rvative free 04/09/2020 08:55:00 AM EST completed eCW1 ([facility]) influenza, recombinant, quadrIvalent,injectable, prese rvative free 04/09/2020 08:55:00 AM EST completed eCW1 ([facility]) influenza, recombinant, quadrIvalent,injectable, prese rvative free 04/09/2020 08:55:00 AM EST completed eCW1 ([facility]) Medications Medication Brand Name Start Date Product Form Dose Route Admi nistrative Instructions Pharmacy Instructions Status Indications Reaction Description Data Source(s) Sulfamethoxazole 800 MG / Trimethoprim 1 60 MG Oral Tablet [Bactrim] Bactrim DS 800-160 MG Bactrim DS 800-160 MG 04/06/2021 12:00:00 AM EDT 1.0 {table t} active Bactrim DS 800-160 MG eCW1 ( [facility]) 800-160 mg 04/06/2021 12:00:00 AM EDT [...] active Bactrim DS 800-160 MG eCW1 ( [facility]) Walker - Walker - 04/03/2021 12:00:00 AM EDT activ e Walker - eCW1 ([facility]) Walker - Walker - 04/03/2021 12:00:00 AM EDT activ e Walker - eCW1 ([facility]) Walker - Walker - 04/03/2021 12:00:00 AM EDT activ e Walker - eCW1 ([facility]) Cephalexin 500 MG Oral Capsule CEPHALEXIN 03/18/2021 12:00:00 AM EDT capsule 14 TAKE ONE CAPSULE BY MOUTH TWICE A DAY TAKE ONE CAPSULE BY MO UT TWICE A DAY SOLD: 03/18/2021 [facility] Lidocaine Hydrochloride 40 MG/ML Topical Cream Lidocai ne HCl 4 % Lidocaine HCl 4 % 02/18/2021 12:00:00 AM EDT 1.0 {application} active Lidocaine HCl 4 % eCW1 ([facility]) Lidocaine Hydrochloride 40 MG/ML Topical Cream Lidocai ne HCl 4 % Lidocaine HCl 4 % 02/18/2021 12:00:00 AM EDT 1.0 {application} active Lidocaine HCl 4 % eCW1 ([facility]) Lidocaine Hydrochloride 40 MG/ML Topical Cream Lidocai ne HCl 4 % Lidocaine HCl 4 % 02/18/2021 12:00:00 AM EDT 1.0 {application} active Lidocaine HCl 4 % eCW1 ([facility]) Lidocaine Hydrochloride 40 MG/ML Topical Cream Lidocai ne HCl 4 % Lidocaine HCl 4 % 02/18/2021 12:00:00 AM EDT 1.0 {application} active Lidocaine HCl 4 % eCW1 ([facility]) Lidocaine Hydrochloride 40 MG/ML Topical Cream Lidocai ne HCl 4 % Lidocaine HCl 4 % 02/18/2021 12:00:00 AM EDT 1.0 {application} active Lidocaine HCl 4 % eCW1 ([facility]) Lidocaine Hydrochloride 40 MG/ML Topical Cream Lidocai ne HCl 4 % Lidocaine HCl 4 % 02/18/2021 12:00:00 AM EDT 1.0 {application} active Lidocaine HCl 4 % eCW1 ([facility]) Lidocaine Hydrochloride 40 MG/ML Topical Cream Lidocai ne HCl 4 % Lidocaine HCl 4 % 02/18/2021 12:00:00 AM EDT 1.0 {application} active Lidocaine HCl 4 % eCW1 ([facility]) Lidocaine Hydrochloride 40 MG/ML Topical Cream Lidocai ne HCl 4 % Lidocaine HCl 4 % 02/18/2021 12:00:00 AM EDT 1.0 {application} active Lidocaine HCl 4 % eCW1 ([facility]) Lidocaine Hydrochloride 40 MG/ML Topical Cream Lidocai ne HCl 4 % Lidocaine HCl 4 % 02/18/2021 12:00:00 AM EDT 1.0 {application} active Lidocaine HCl 4 % eCW1 ([facility]) buspirone hydrochloride 5 MG Oral Tablet busPIRone HCl 5 MG busPIRone HCl 5 MG 01/14/2021 12:00:00 AM EDT 1.0 {tablet} active busPIRone HCl 5 MG eCW1 ([facility]) buspirone hydrochloride 5 MG Oral Tablet busPIRone HCl 5 MG busPIRone HCl 5 MG 01/14/2021 12:00:00 AM EDT 1.0 {tablet} suspende d busPIRone HCl 5 MG eCW1 ([facility]) Diclofenac Sodium 0.01 MG/MG Topical Gel [Voltaren] Voltaren 1 % Voltaren 1 % 01/14/2021 12:00:00 AM EDT active Voltaren 1 % eCW1 ([facility]) Diclofenac Sodium 0.01 MG/MG Topical Gel [Voltaren] Voltaren 1 % Voltaren 1 % 01/14/2021 12:00:00 AM EDT suspended Voltaren 1 % eCW1 ([facility]) buspirone hydrochloride 5 MG Oral Tablet busPIRone HCl 5 MG busPIRone HCl 5 MG 01/14/2021 12:00:00 AM EDT 1.0 {tablet} active busPIRone HCl 5 MG eCW1 ([facility]) buspirone hydrochloride 5 MG Oral Tablet busPIRone HCl 5 MG busPIRone HCl 5 MG 01/14/2021 12:00:00 AM EDT 1.0 {tablet} suspende d busPIRone HCl 5 MG eCW1 ([facility]) Diclofenac Sodium 0.01 MG/MG Topical Gel [Voltaren] Voltaren 1 % Voltaren 1 % 01/14/2021 12:00:00 AM EDT suspended Voltaren 1 % eCW1 ([facility]) buspirone hydrochloride 5 MG Oral Tablet busPIRone HCl 5 MG busPIRone HCl 5 MG 01/14/2021 12:00:00 AM EDT 1.0 {tablet} suspende d busPIRone HCl 5 MG eCW1 ([facility]) Diclofenac Sodium 0.01 MG/MG Topical Gel [Voltaren] Voltaren 1 % Voltaren 1 % 01/14/2021 12:00:00 AM EDT suspended Voltaren 1 % eCW1 ([facility]) buspirone hydrochloride 5 MG Oral Tablet busPIRone HCl 5 MG busPIRone HCl 5 MG 01/14/2021 12:00:00 AM EDT 1.0 {tablet} suspende d busPIRone HCl 5 MG eCW1 ([facility]) Diclofenac Sodium 0.01 MG/MG Topical Gel [Voltaren] Voltaren 1 % Voltaren 1 % 01/14/2021 12:00:00 AM EDT suspended Voltaren 1 % eCW1 ([facility]) buspirone hydrochloride 5 MG Oral Tablet busPIRone HCl 5 MG busPIRone HCl 5 MG 01/14/2021 12:00:00 AM EDT 1.0 {tablet} suspende d busPIRone HCl 5 MG eCW1 ([facility]) buspirone hydrochloride 5 MG Oral Tablet busPIRone HCl 5 MG busPIRone HCl 5 MG 01/14/2021 12:00:00 AM EDT 1.0 {tablet} suspende d busPIRone HCl 5 MG eCW1 ([facility]) Diclofenac Sodium 0.01 MG/MG Topical Gel [Voltaren] Voltaren 1 % Voltaren 1 % 01/14/2021 12:00:00 AM EDT suspended Voltaren 1 % eCW1 ([facility]) Diclofenac Sodium 0.01 MG/MG Topical Gel [Voltaren] Voltaren 1 % Voltaren 1 % 01/14/2021 12:00:00 AM EDT suspended Voltaren 1 % eCW1 ([facility]) 1 % 01/14/2021 12:00:00 AM EDT gel 100 APPLY 4 GRAMS TOPICALLY TO RIGHT HIP FOUR TIMES A DAY APPLY 4 GRAMS TOPICALLY TO RIGHT HIP FOUR TIMES A DAY SOLD: 01/15/2021 [facility] buspirone hydrochloride 5 MG Oral Tablet busPIRone HCl 5 MG busPIRone HCl 5 MG 01/14/2021 12:00:00 AM EDT 1.0 {tablet} suspende d busPIRone HCl 5 MG eCW1 ([facility]) Diclofenac Sodium 0.01 MG/MG Topical Gel [Voltaren] Voltaren 1 % Voltaren 1 % 01/14/2021 12:00:00 AM EDT active Voltaren 1 % eCW1 ([facility]) buspirone hydrochloride 5 MG Oral Tablet BUSPIRONE HCL 01/14/2021 12:00:00 AM EDT tablet 60 TAKE ONE TABLET BY MOUTH TWI CE A DAY TAKE ONE TABLET BY MOUTH TWICE A DAY SOLD: 01/15/2021 [facility] Diclofenac Sodium 0.01 MG/MG Topical Gel [Voltaren] Voltaren 1 % Voltaren 1 % 01/14/2021 12:00:00 AM EDT suspended Voltaren 1 % eCW1 ([facility]) 60 mg 12/05/2020 12:00:00 AM EDT [...] activ e amLODIPine Besylate 2.5 MG eCW1 ([facility]) Amlodipine 2.5 MG Oral Tablet amLODIPine Besylate 2.5 MG amLODIPine Besylate 2.5 MG 10/17/2020 12:00:00 AM EDT 1.0 {tablet} activ e amLODIPine Besylate 2.5 MG eCW1 ([facility]) 2.5 mg 10/17/2020 12:00:00 AM EDT tablet 90 TAKE ONE TABLET BY MOUTH EVERY DAY TAKE ONE TABLET BY MOUTH EVERY DAY SOLD: 01/15/2021 [facility] Amlodipine 2.5 MG Oral Tablet AmLODIPine Besylate 2.5 MG AmLODIPine Besylate 2.5 MG 10/17/2020 12:00:00 AM EDT 1.0 {tablet} activ e AmLODIPine Besylate 2.5 MG eCW1 ([facility]) Amlodipine 2.5 MG Oral Tablet amLODIPine Besylate 2.5 MG amLODIPine Besylate 2.5 MG 10/17/2020 12:00:00 AM EDT 1.0 {tablet} activ e amLODIPine Besylate 2.5 MG eCW1 ([facility]) Amlodipine 2.5 MG Oral Tablet amLODIPine Besylate 2.5 MG amLODIPine Besylate 2.5 MG 10/17/2020 12:00:00 AM EDT 1.0 {tablet} activ e amLODIPine Besylate 2.5 MG eCW1 ([facility]) Amlodipine 2.5 MG Oral Tablet amLODIPine Besylate 2.5 MG amLODIPine Besylate 2.5 MG 10/17/2020 12:00:00 AM EDT 1.0 {tablet} activ e amLODIPine Besylate 2.5 MG eCW1 ([facility]) Amlodipine 2.5 MG Oral Tablet amLODIPine Besylate 2.5 MG amLODIPine Besylate 2.5 MG 10/17/2020 12:00:00 AM EDT 1.0 {tablet} activ e amLODIPine Besylate 2.5 MG eCW1 ([facility]) Amlodipine 2.5 MG Oral Tablet AMLODIPINE [...] active Propranolol HCl ER 60 MG eCW1 ([facility]) 60 mg 06/18/2020 12:00:00 AM EST [...] active Propranolol HCl ER 60 MG eCW1 ([facility]) 24 HR Propranolol Hydrochloride 60 MG Ex tended Release Oral Capsule Propranolol HCl ER 60 MG Propranolol HCl ER 60 MG 06/18/2020 12:00:00 AM EST 1.0 {capsule} active Propranolol HCl ER 60 MG eCW1 ([facility]) 60 mg 06/18/2020 12:00:00 AM EST [...] active Propranolol HCl ER 60 MG eCW1 ([facility]) 24 HR Propranolol Hydrochloride 60 MG Ex tended Release Oral Capsule Propranolol HCl ER 60 MG Propranolol HCl ER 60 MG 06/18/2020 12:00:00 AM EST 1.0 {capsule} active Propranolol HCl ER 60 MG eCW1 ([facility]) 80 mg 06/10/2020 12:00:00 AM EST [...] type / Coverage type Policy ID Covered libertarian ID Covered libertarian's relationship to hall Policy Hall Plan Information [employer] [id number] S [id number] [employer] [id number] S [id number] [place] [id number] S [id number] [place] [id number] [facility] [id number] SPO [id number] [facility] [id number] SPO [id number] MEDICARE [id number] SP [id number] [facility] [id number] [facility] [id number] [facility] [id number] S [id number] [place] [id number] S [id number] ANSI-Commercial [id number] ANSI-Medicare Part B [id number] ANSI-Medicare Part B [id number] ANSI-Commercial [id number] MEDICARE [id number] SP [id number] B FOR LIFE O [id number] S [id number] MEDICARE C [id number] S [id number] B [place]IC[place] [id number] S [id number] FOR LIFE [id number] 2 [id number] ANSI-Medicare Part B [id number] ANSI-Commercial [id number] ANSI-Medicare Part B [id number] ANSI-Commercial [id number] [facility] [id number] S [id number] Problems, Conditions, and Diagnoses Code Display Name Description Problem Type Effective Dates Data Source(s) Z87.891 Personal history of nicotine dependence PERSONAL HISTORY OF NICOTINE DEPENDENCE Diagnosis 03/18/2021 07:42:00 AM [facility] 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 Diagnosis 03/18/2021 07:42:00 AM [facility] 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), and cerebral infarction without residual deficits PRSNL HX OF TIA (TIA), AND CEREB INFRC W /O RESID D Diagnosis 03/18/2021 07:42:00 AM [facility] Z79.899 Other mcc (current) drug therapy O THER FPC (CURRENT) DRUG THERAPY Diagnosis 03/18/2021 07:42:00 AM [facility] 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 Diagnosis 03/18/2021 07:42:00 AM [facility] E78.00 PURE HYPERCHOLESTEROLEMIA, UNSPECIFIED P URE HYPERCHOLESTEROLEMIA, UNSPECIFIED Diagnosis 03/18/2021 07:42:00 AM [facility] I10 Essential (primary) hypertension ESSENTIAL (PRIMARY) H YPERTENSION Diagnosis 03/18/2021 07:42:00 AM [facility] N95.0 Postmenopausal bleeding POSTMENOPAUSAL BLEEDING Diagno sis 03/18/2021 07:42:00 AM [facility] N93.9 Abnormal uterine and vaginal bleeding, u nspecified ABNORMAL UTERINE AND VAGINAL BLEEDING, UNSPECIFIED Diagnosis 03/18/2021 07:42:00 AM [facility] Y93.89 Activity, other specified ACTIVITY, OTHER SPECIFIED Di agnosis 01/18/2021 02:23:00 AM [facility] Y92.[address] the place of o ccurrence of the external cause OTH PLACES THE PLACE OF OCCURRENCE OF THE EXTER Diagnosis 02:23:00 AM [facility] T43.595A Adverse effect of other anti psychotics and neuroleptics, initial encounter ADVERSE EFFECT OF OTH ANTIPSYCHOTICS AND NEUROLEPT Diagnosis 01/18/2021 02:23:00 AM [facility] F41.9 Anxiety disorder, unspecified ANXIETY DISORDER, UNSPEC IFIED Diagnosis 01/18/2021 02:23:00 AM [facility] Z01.818 Pre-procedure evaluation check Preop testing Problem 03/23/2021 12:00:00 AM EDT eCW1 ([facility]ly [facility]) R31.0 Gross hematuria Gross hematuria Problem 03/23/2021 12:0 0:00 AM EDT eCW1 (Formerly [facility]) N39.0 Urinary tract infectious disease UTI (urinary tract in fection) Problem 03/23/2021 12:00:00 AM EDT eCW1 ([facility]ly [facility]) N32.89 Bladder mass Bladder mass Problem 03/18/2021 12:00:00 A M EDT eCW1 ([facility]ly [facility]) N18.4 [id number] Stage 4 chronic kidney disease Problem 08/15/2020 12:00:00 AM EST eCW1 ([facility]) R44.2 Hallucinations Hallucination, hypnopompic Problem 06/18/2020 12:00:00 AM EST eCW1 ([facility]ly [facility]) I12.9 [id number] Hypertensive chronic kidney disease with stage 1 through stage 4 chronic kidney disease, or unspecified chronic kidney disease Problem 06/18/2020 12:00:00 AM EST eCW1 ([facility]) I12.9 [id number] Hypertensive kidney disease Problem 05/18/20 20 12:00:00 AM EST eCW1 ([facility]) O10.211 [id number] Hypertensive kidney disease affecting in first trimester Problem 05/18/2020 12:00:00 AM EST eCW1 ([facility]) Surgeries/Procedures Procedure Description Date Indications Data Source(s) PC-INTERPRETATION AND REPORT 04/02/2021 12:00:00 AM ED T eCW1 ([facility]ly [facility]) FC-ELECTROCARDIOGRAM, TRACING ONLY 04/02/2021 12:00:00 AM EDT eCW1 ([facility]ly [facility]) Imm: Flublok Quadrivalent 18 years & older 0.5mL IM Influenz a 04/02/2021 12:00:00 AM EDT eCW1 ([facility]) Med: Lidocaine Jelly 2% 6ml Intravesically (Glydo) 03/23/2021 12:00:00 AM EDT eCW1 ([facility]ly [facility]) Immunization: Flublok Quadrivalent (18 years & older) 0.5mL IM (Influenza) 04/09/2020 12:00:00 AM EST eCW1 ([facility]) Results ID Date Data Source FREE T4 & TSH PANEL 04/02/2021 12:00:00 AM EDT eCW1 ([facility]) Name Value Range Interpretation Code Description Data Anabell rce(s) Supporting Document(s) 4.100 0.358-3.740 THYROID STIMULATING HORM ONE eCW1 ([facility]) 1.42 0.76-1.46 FREE T4 eCW1 ([facility]) ID Date Data Source Comprehensive Metabolic Profile (CMP) 04/02/2021 12:00:00 AM EDT eCW1 ([facility]ly [facility]) Name Value Range Interpretation Code Description Data Anabell rce(s) Supporting Document(s) 1.53 0.55-1.30 CREATININE FOR GFR eCW1 ([facility]) 100 70-100 GLUCOSE, FASTING eCW1 ([facility]) 24 7-18 BLOOD UREA NITROGEN eCW1 (formerly [facility]) 34.1 >32 GLOMERULAR FILTRATION RATE eCW 1 ([facility]) 6.1 3.5-5.1 POTASSIUM SERUM eCW1 ([facility]) 108 98-107 CHLORIDE LEVEL eCW1 ([facility]ly [facility]) 136 136-145 SODIUM LEVEL eCW1 (Counts include 234 beds at the [facility]) 9.4 8.8-10.2 CALCIUM LEVEL eCW1 ([facility]ly [facility]) 26 21-32 CARBON DIOXIDE LEVEL eCW1 (Critical access hospital) 16 12-78 ALT/SGPT eCW1 ([facility]) 21 7-37 AST/SGOT eCW1 ([facility]) 7.3 6.4-8.2 TOTAL PROTEIN eCW1 ([facility]) 199 45-117 ALKALINE PHOSPHATASE eCW1 (Critical access hospital) 0.5 0.2-1.0 BILIRUBIN,TOTAL eCW1 ([facility]) 3.5 3.2-5.2 ALBUMIN eCW1 ([facility]) 0.9 1.2-2.2 ALBUMIN/GLOBULIN RATIO eCW1 ([facility]) ID Date Data Source [id number] 03/18/2021 09:58:00 AM EDT [facility] Patient: ALEXANDER SIFUENTES Observat ion Report - [facility].VisitID: [id number] [place] [address] [phone], FRegistration Date/Time: 03/18/2021 06:41 Weight:40.8 kg (S). [...] rce(s) Supporting Document(s) ID Date Data Source [id number] 03/18/2021 08:53:00 AM EDT [facility] [...] rce(s) Supporting Document(s) ID Date Data Source [id number] 03/20/2021 12:39:00 PM EDT [facility] Name Value Range Interpretation Code Description Data Anabell rce(s) Supporting Document(s) ORGANISM [facility] COLONY COUNT N [facility] ID Date Data Source [id number] 03/18/2021 08:24:00 AM EDT [facility] TSYSORDER [id number] Name Value Range Interpretation Code Description Data Anabell rce(s) Supporting Document(s) URINE RBC TNTC /hpf 0-3 H [facility] URINE WBC 5-10 /hpf 0-5 H [facility] URINE EPITHELIAL CELLS NONE SEEN /hpf 0 [facility] URINE BACTERIA 1+ NONE SEEN [facility] ID Date Data Source [id number] [id number] 03/18/2021 08:22:00 AM EDT [facility] TSYSORDER [id number] Name Value Range Interpretation Code Description Data Anabell rce(s) Supporting Document(s) URINE COLOR. RED [facility] URINE APPEARANCE TURBID [facility] URINE GLUCOSE (UA) NEGATIVE mg/dL NEGATIVE [facility] URINE BILIRUBIN NEGATIVE NEGATIVE [facility] URINE KETONE NEGATIVE mg/dL NEGATIVE [facility] SPECIFIC GRAVITY,URINE 1.025 1.005-1.030 [facility] URINE BLOOD 3+(LARGE) NEGATIVE [facility] PH,URINE 8.5 5.0-9.0 [facility] URINE PROTEIN 4+(>=300) mg/dL NEGATIVE [facility] ital URINE UROBILINOGEN NORMAL(0.2-1) mg/dL 0-1 [facility] URINE NITRATE NEGATIVE NEGATIVE [facility] URINE LEUKOCYTE ESTERASE 1+(SMALL) NEGATIVE [facility] ID Date Data Source [id number] 03/18/2021 07:57:00 AM EDT [facility] TSYSORDER [id number] Name Value Range Interpretation Code Description Data Anabell rce(s) Supporting Document(s) FREE T4 1.46 ng/dL 0.76-1.46 [facility] ID Date Data Source [id number] 03/18/2021 07:57:00 AM EDT [facility] TSYSORDER [id number] Name Value Range Interpretation Code Description Data Anabell rce(s) Supporting Document(s) TSH 6.404 uIU/mL 0.358-3.74 H [facility] ID Date Data Source [id number] 03/18/2021 07:41:00 AM EDT [facility] TSYSORDER [id number] Name Value Range Interpretation Code Description Data Anabell rce(s) Supporting Document(s) PARTIAL THROMBOPLASTIN TIME 24.5 SECONDS 21.2-27.3 [facility] ID Date Data Source [id number] 03/18/2021 07:41:00 AM EDT [facility] TSYSORDER [id number] Name Value Range Interpretation Code Description Data Anabell rce(s) Supporting Document(s) PROTHROMBIN TIME (PATIENT) 9.6 SECONDS 9.1-11.6 [facility] INR 0.92 0.87-1.06 [facility] ID Date Data Source [id number] 03/18/2021 07:36:00 AM EDT [facility] TSYSORDER [id number] Name Value Range Interpretation Code Description Data Anabell rce(s) Supporting Document(s) MAGNESIUM 2.2 mg/dL 1.8-2.4 [facility] ID Date Data Source [id number] 03/18/2021 07:36:00 AM EDT [facility] TSYSORDER [id number] Name Value Range Interpretation Code Description Data Anabell rce(s) Supporting Document(s) GLUCOSE 112 mg/dL 74-106 H [facility] BLOOD UREA NITROGEN 19 mg/dL 7-18 H [facility] CREATININE 1.57 mg/dL 0.6-1.0 H [facility] SODIUM 138 mmol/L 136-145 [facility] POTASSIUM 4.8 mmol/L 3.5-5.1 [facility] CHLORIDE 102 mmol/L 98-107 [facility] CO2 30 mmol/L 21-32 [facility] CALCIUM 9.5 mg/dL 8.5-10.1 [facility] ANION GAP 6.0 mmol/L 5-12 [facility] GLOMERULAR FILTRATION RATE 31 mL/min [facility] GFR IS CALCULATED IN mL/min/1.73m2 MIKE L FUNCTION: >90MILDLY DECREASED: 60-89MILDY TO MODERATELY DECREASED: 45-59 MODERATELY TO SEVERELY DECREASED: 30-44SEVERELY DECREASED: 15-29RENAL FAILURE: <15 AST 11 U/L 15-37 L [facility] ALT 18 U/L 12-78 [facility] ALKALINE PHOSPHATASE 232 U/L 46-116 H [facility] TOTAL BILIRUBIN 0.6 mg/dL 0.2-1.0 [facility] TOTAL PROTEIN 8.5 g/dl 6.4-8.2 H [facility] ALBUMIN 4.0 gm/dL 3.4-5.0 [facility] ID Date Data Source [id number] 03/18/2021 07:16:00 AM EDT [facility] TSYSORDER [id number] Name Value Range Interpretation Code Description Data Anabell rce(s) Supporting Document(s) WHITE BLOOD COUNT 12.6 K/mm3 4.0-10.0 H [facility] indira RED BLOOD COUNT 4.25 M/mm3 4.00-5.50 [facility] HEMOGLOBIN 14.0 gm/dL 12.0-16.0 [facility] HEMATOCRIT 41.6 % 36.0-48.8 [facility] MEAN CELL VOLUME 97.9 fl 80-96 H [facility] l MEAN CORPUSCULAR HEMOGLOBIN 32.9 pg 27.0-31.0 H [facility] MEAN CORPUSCULAR HGB CONC 33.7 g/dl 32.0-36.0 [facility] RED CELL DISTRIBUTION WIDTH 13.0 % 10.0-14.5 [facility] PLATELET COUNT 402 K/mm3 172-450 [facility] MEAN PLATELET VOLUME 9.2 fl 9.0-13.0 [facility] pital GRAN % 69.4 % 50-80.0 [facility] IG% 0.4 % 0.0-0.2 H [facility] LYMPH % 16.6 % 25.0-50.0 L [facility] MONO % 9.0 % 2.0-10.0 [facility] EOS % 4.1 % 0-5.0 [facility] BASO % 0.5 % 0.0-2.0 [facility] GRAN # 8.7 K/mm3 2.0-8.00 H [facility] IG# 0.1 K/mm3 0.0-0.2 [facility] LYMPH # 2.1 K/mm3 1.0-5.0 [facility] MONO # 1.1 K/mm3 0.10-1.20 [facility] EOS # 0.5 K/mm3 0.0-0.5 [facility] BASO # 0.1 K/mm3 0.0-0.2 [facility] ID Date Data Source [id number] 01/19/2021 08:28:00 PM EDT [facility] Patient: ALEXANDER SIFUENTES Observat ion Report - [facility].VisitID: [id number] [place] [address] [phone], [facility] Date/Time: 01/18/2021 01:13 Weight:41.7 kg. Height/Length:61 inches [...] rce(s) Supporting Document(s) ID Date Data Source [id number] 01/18/2021 07:53:00 AM EDT [facility] BRAIN WITHOUT [...] rce(s) Supporting Document(s) ID Date Data Source [id number] 01/18/2021 07:47:00 AM EDT [facility] [...] rce(s) Supporting Document(s) ID Date Data Source [id number] 01/18/2021 03:15:00 AM EDT [facility] TSYSORDER [id number] Name Value Range Interpretation Code Description Data Anabell rce(s) Supporting Document(s) FREE T4 1.8 ng/dL 0.76-1.46 H [facility] ID Date Data Source [id number] 01/18/2021 03:15:00 AM EDT [facility] TSYS[facility] [id number] Name Value Range Interpretation Code Description Data Anabell rce(s) Supporting Document(s) TSH 3.504 uIU/mL 0.360-3.740 [facility] ID Date Data Source [id number] 01/18/2021 03:01:00 AM EDT [facility] TSYSORDER [id number] Name Value Range Interpretation Code Description Data Anabell rce(s) Supporting Document(s) MAGNESIUM 2.3 mg/dL 1.8-2.4 [facility] ID Date Data Source [id number] 01/18/2021 03:01:00 AM EDT [facility] TSYSORDER [id number] Name Value Range Interpretation Code Description Data Anabell rce(s) Supporting Document(s) LIPASE 246 U/L 73-393 [facility] ID Date Data Source [id number] 01/18/2021 03:01:00 AM EDT [facility] TSYSORDER [id number] Name Value Range Interpretation Code Description Data Anabell rce(s) Supporting Document(s) TROPONIN-HIGH SENSITIVITY 7.2 ng/L 0-60.4 [facility] ID Date Data Source [id number] 01/18/2021 03:01:00 AM EDT [facility] TSYSORDER [id number] Name Value Range Interpretation Code Description Data Anabell rce(s) Supporting Document(s) GLUCOSE 109 mg/dL 74-106 H [facility] BLOOD UREA NITROGEN 28 mg/dL 7-18 H [facility] CREATININE 1.55 mg/dL 0.6-1.0 H [facility] SODIUM 142 mmol/L 136-145 [facility] POTASSIUM 4.4 mmol/L 3.5-5.1 [facility] CHLORIDE 104 mmol/L 98-107 [facility] CO2 25 mmol/L 21-32 [facility] CALCIUM 9.3 mg/dL 8.5-10.1 [facility] ANION GAP 13.0 mmol/L 5-12 H [facility] GLOMERULAR FILTRATION RATE 32 mL/min [facility] GFR IS CALCULATED IN mL/min/1.73m2 MIKE L FUNCTION: >90MILDLY DECREASED: 60-89MILDY TO MODERATELY DECREASED: 45-59 MODERATELY TO SEVERELY DECREASED: 30-44SEVERELY DECREASED: 15-29RENAL FAILURE: <15 AST 15 U/L 15-37 [facility] ALT 17 U/L 12-78 [facility] ALKALINE PHOSPHATASE 254 U/L 46-116 H [facility] pital TOTAL BILIRUBIN 0.5 mg/dL 0.2-1.0 [facility] TOTAL PROTEIN 8.0 g/dl 6.4-8.2 [facility] ALBUMIN 4.0 gm/dL 3.4-5.0 [facility] ID Date Data Source [id number] 01/18/2021 02:52:00 AM EDT [facility] TSYSORDER [id number] Name Value Range Interpretation Code Description Data Anabell rce(s) Supporting Document(s) PARTIAL THROMBOPLASTIN TIME 24.1 SECONDS 21.2-27.3 [facility] ID Date Data Source [id number] 01/18/2021 02:52:00 AM EDT [facility] TSYSORDER [id number] Name Value Range Interpretation Code Description Data Anabell rce(s) Supporting Document(s) PROTHROMBIN TIME (PATIENT) 9.9 SECONDS 9.1-11.6 [facility] INR 0.95 0.87-1.06 [facility] ID Date Data Source [id number] 01/18/2021 02:34:00 AM T [facility] TSYSORDER [id number] Name Value Range Interpretation Code Description Data Anabell rce(s) Supporting Document(s) WHITE BLOOD COUNT 13.1 K/mm3 4.0-10.0 H [facility] indira RED BLOOD COUNT 4.28 M/mm3 4.00-5.50 [facility] HEMOGLOBIN 14.0 gm/dL 12.0-16.0 [facility] HEMATOCRIT 40.8 % 36.0-48.8 [facility] MEAN CELL VOLUME 95.3 fl 80-96 [facility] MEAN CORPUSCULAR HEMOGLOBIN 32.7 pg 27.0-31.0 H [facility] MEAN CORPUSCULAR HGB CONC 34.3 g/dl 32.0-36.0 [facility] RED CELL DISTRIBUTION WIDTH 12.9 % 10.0-14.5 [facility] PLATELET COUNT 308 K/mm3 172-450 [facility] MEAN PLATELET VOLUME 9.7 fl 9.0-13.0 [facility] GRAN % 71.2 % 50-80.0 [facility] IG% 0.2 % 0.0-0.2 [facility] LYMPH % 14.5 % 25.0-50.0 L [facility] MONO % 10.4 % 2.0-10.0 H [facility] EOS % 3.3 % 0-5.0 [facility] BASO % 0.4 % 0.0-2.0 [facility] GRAN # 9.3 K/mm3 2.0-8.00 H [facility] IG# 0.0 K/mm3 0.0-0.2 [facility] LYMPH # 1.9 K/mm3 1.0-5.0 [facility] MONO # 1.4 K/mm3 0.10-1.20 H [facility] EOS # 0.4 K/mm3 0.0-0.5 [facility] BASO # 0.1 K/mm3 0.0-0.2 [facility] Procedure Social History Code Duration Value Status Description Data Source(s ) Smoking 04/02/2021 12:00:00 AM EDT Former Smoker completed Former Smoker eCW1 (Formerly [facility]) Smoking 04/02/2021 12:00:00 AM EDT Former Smoker completed Former Smoker eCW1 (Formerly [facility]) Smoking 04/02/2021 12:00:00 AM EDT Former Smoker completed Former Smoker eCW1 (Formerly [facility]) Smoking 04/02/2021 12:00:00 AM EDT Former Smoker completed Former Smoker eCW1 ([facility]ly [facility]) Smoking 03/23/2021 12:00:00 AM EDT Former Smoker completed Former Smoker eCW1 (Formerly [facility]) Smoking 03/23/2021 12:00:00 AM EDT Former Smoker completed Former Smoker eCW1 ([facility]ly [facility]) Smoking 03/23/2021 12:00:00 AM EDT Former Smoker completed Former Smoker eCW1 ([facility]ly [facility]) Smoking 03/20/2021 12:00:00 AM EDT Former Smoker completed Former Smoker eCW1 ([facility]ly [facility]) Smoking 02/18/2021 12:00:00 AM EDT Former Smoker completed Former Smoker eCW1 ([facility]ly [facility]) Smoking 01/20/2021 12:00:00 AM EDT Former Smoker completed Former Smoker eCW1 ([facility]ly [facility]) Smoking 01/20/2021 12:00:00 AM EDT Former Smoker completed Former Smoker eCW1 ([facility]ly [facility]) Smoking 01/14/2021 12:00:00 AM EDT Former Smoker completed Former Smoker eCW1 ([facility]ly [facility]) Smoking 01/14/2021 12:00:00 AM EDT Former Smoker completed Former Smoker eCW1 ([facility]ly [facility]) Smoking 10/17/2020 12:00:00 AM EDT Former Smoker completed Former Smoker eCW1 ([facility]ly [facility]) Smoking 10/17/2020 12:00:00 AM EDT Former Smoker completed Former Smoker eCW1 ([facility]ly [facility]) Smoking 08/15/2020 12:00:00 AM EST Former Smoker completed Former Smoker eCW1 ([facility]ly [facility]) Smoking 08/15/2020 12:00:00 AM EST Former Smoker completed Former Smoker eCW1 ([facility]ly [facility]) Smoking 06/18/2020 12:00:00 AM EST Former Smoker completed Former Smoker eCW1 ([facility]ly [facility]) Smoking 06/18/2020 12:00:00 AM EST Former Smoker completed Former Smoker eCW1 ([facility]ly [facility]) Vital Signs ID Date Data Source [id number] Name Value Range Interpretation Code Description Data Source(s) Heart rate 72 /min 72 /min eCW1 ([facility]) Body weight 88.4 [lb_av] 88.4 [lb_av] eCW1 ([facility] Body height 61.5 [in_i] 61.5 [in_i] eCW1 ([facility]) Body mass index (BMI) [Ratio] 16.43 kg/m2 16.43 kg/m2 W1 ([facility]) Respiratory rate 18 /min 18 /min eCW1 ([facility]) Body temperature 98 [degF] 98 [degF] eCW1 ([facility]) Systolic blood pressure 124 mm[Hg] 124 mm[Hg] e CW1 ([facility]) Diastolic blood pressure 74 mm[Hg] 74 mm[Hg] eCW1 ([facility]) Diastolic blood pressure 62 mm[Hg] 62 mm[Hg] eCW1 ([facility]) Body weight 86 [lb_av] 86 [lb_av] eCW1 ([facility]) Body weight 39.01 kg 39.01 kg eCW1 ([facility]) Body height 61.5 [in_i] 61.5 [in_i] eCW1 ([facility]) Body mass index (BMI) [Ratio] 15.98 kg/m2 15.98 kg/m2 eCW1 ([facility]) Heart rate 72 /min 72 /min eCW1 ([facility]) Respiratory rate 18 /min 18 /min eCW1 ([facility]) Body temperature 97.6 [degF] 97.6 [degF] eCW1 ( [facility]) Systolic blood pressure 112 mm[Hg] 112 mm[Hg] e CW1 ([facility]) Body weight [lb_av] eCW1 ([facility]) Body weight 39.01 kg 39.01 kg eCW1 ([facility]) Body height 61.5 [in_i] 61.5 [in_i] eCW1 ([facility]) Body mass index (BMI) [Ratio] 15.98 kg/m2 15.98 kg/m2 eCW1 (Formerly [facility], [facility]) Heart rate 75 /min 75 /min eCW1 ([facility]) Respiratory rate 18 /min 18 /min eCW1 ([facility]) Body temperature 97.8 [degF] 97.8 [degF] eCW1 ( Formerly [facility], [facility]) Systolic blood pressure 95 mm[Hg] 95 mm[Hg] e CW1 (Formerly [facility], [facility]) Diastolic blood pressure 55 mm[Hg] 55 mm[Hg] eCW1 (Formerly [facility], [facility]) Body temperature 97.1 [degF] 97.1 [degF] eCW1 ( Formerly [facility], [facility]) Systolic blood pressure 142 mm[Hg] 142 mm[Hg] e CW1 (Formerly [facility], [facility]) Diastolic blood pressure 68 mm[Hg] 68 mm[Hg] eCW1 (Formerly [facility], [facility]) Body weight 86 [lb_av] 86 [lb_av] eCW1 ([facility]) Body weight 39.01 kg 39.01 kg eCW1 ([facility]) Body height 61.5 [in_i] 61.5 [in_i] eCW1 ([facility]) Body mass index (BMI) [Ratio] 15.98 kg/m2 15.98 kg/m2 eCW1 (Formerly [facility]) Heart rate 84 /min 84 /min eCW1 ([facility]) Respiratory rate 18 /min 18 /min eCW1 ([facility]) Body weight 89.8 [lb_av] 89.8 [lb_av] eCW1 ([facility]) Body height 61.5 [in_i] 61.5 [in_i] eCW1 ([facility]) Body mass index (BMI) [Ratio] 16.69 kg/m2 16.69 kg/m2 eCW1 (Formerly [facility]) Heart rate 78 /min 78 /min eCW1 ([facility]) Respiratory rate 18 /min 18 /min eCW1 ([facility]) Body temperature 97.8 [degF] 97.8 [degF] eCW1 ( [facility]ly [facility]) Systolic blood pressure 144 mm[Hg] 144 mm[Hg] e CW1 ([facility]ly [facility]) Diastolic blood pressure 60 mm[Hg] 60 mm[Hg] eCW1 (Formerly [facility]) Body weight 90.8 [lb_av] 90.8 [lb_av] eCW1 ([facility]) Body height 61.5 [in_i] 61.5 [in_i] eCW1 ([facility]) Body mass index (BMI) [Ratio] 16.88 kg/m2 16.88 kg/m2 eCW1 (Formerly [facility]) Heart rate 76 /min 76 /min eCW1 ([facility]) Respiratory rate 20 /min 20 /min eCW1 ([facility]) Body temperature 97.8 [degF] 97.8 [degF] eCW1 ( [facility]ly [facility]) Systolic blood pressure 150 mm[Hg] 150 mm[Hg] e CW1 ([facility]ly [facility]) Diastolic blood pressure 77 mm[Hg] 77 mm[Hg] eCW1 ([facility]ly [facility]) Body weight 92.8 [lb_av] 92.8 [lb_av] eCW1 ([facility]) Body temperature 97.8 [degF] 97.8 [degF] eCW1 ( [facility]ly [facility]) Body height 61.5 [in_i] 61.5 [in_i] eCW1 ([facility]) Systolic blood pressure 151 mm[Hg] 151 mm[Hg] e CW1 ([facility]ly [facility]) Diastolic blood pressure 76 mm[Hg] 76 mm[Hg] eCW1 ([facility]ly [facility]) Body mass index (BMI) [Ratio] 18.4 kg/m2 18.4 k g/m2 eCW1 ([facility]ly [facility]) Heart rate 72 /min 72 /min eCW1 ([facility]) Respiratory rate 18 /min 18 /min eCW1 ([facility]) Diastolic blood pressure 80 mm[Hg] 80 mm[Hg] eCW1 ([facility]ly [facility]) Body temperature 97.8 [degF] 97.8 [degF] eCW1 ( [facility]ly [facility]) Systolic blood pressure 124 mm[Hg] 124 mm[Hg] e CW1 ([facility]ly [facility]) Body weight 94.12 [lb_av] 94.12 [lb_av] eCW1 ([facility]) Body height 61.5 [in_i] 61.5 [in_i] eCW1 ([facility]) Body mass index (BMI) [Ratio] 17.49 kg/m2 17.49 kg/m2 eCW1 ([facility]ly [facility]) Heart rate 85 /min 85 /min eCW1 ([facility]) Respiratory rate 18 /min 18 /min eCW1 ([facility]) Body weight 96.8 [lb_av] 96.8 [lb_av] eCW1 ([facility]) Body height 61.5 [in_i] 61.5 [in_i] eCW1 ([facility]) Body mass index (BMI) [Ratio] 17.99 kg/m2 17.99 kg/m2 eCW1 ([facility]ly [facility]) Heart rate 70 /min 70 /min eCW1 ([facility]) Respiratory rate 18 /min 18 /min eCW1 ([facility]) Body temperature 98 [degF] 98 [degF] eCW1 ([facility]) Systolic blood pressure 126 mm[Hg] 126 mm[Hg] e CW1 ([facility]ly [facility]) Diastolic blood pressure 72 mm[Hg] 72 mm[Hg] eCW1 ([facility]ly [facility]) Body weight 98.4 [lb_av] 98.4 [lb_av] eCW1 ([facility]) Body height 61.5 [in_i] 61.5 [in_i] eCW1 ([facility]) Body mass index (BMI) [Ratio] 18.29 kg/m2 18.29 kg/m2 eCW1 ([facility]ly [facility]) Heart rate 69 /min 69 /min eCW1 ([facility]) Respiratory rate 18 /min 18 /min eCW1 ([facility]) Body temperature 98 [degF] 98 [degF] eCW1 ([facility]) Systolic blood pressure 124 mm[Hg] 124 mm[Hg] e CW1 ([facility]ly [facility]) Diastolic blood pressure 73 mm[Hg] 73 mm[Hg] eCW1 (Formerly [facility]) Patient Treatment Plan of Care Planned Activity Planned Date Details Description Data Source (s) Sulfamethoxazole 800 MG / Trimethoprim 160 MG Oral Tab let [Bactrim] 04/06/2021 12:00:00 AM EDT eCW1 ([facility]) Sulfamethoxazole 800 MG / Trimethoprim 160 MG Oral Tab let [Bactrim] 04/06/2021 12:00:00 AM EDT eCW1 ([facility]) Walker - 04/03/2021 12:00:00 AM EDT e CW1 (Formerly [facility]) Walker - 04/03/2021 12:00:00 AM EDT e CW1 (Formerly [facility]) Walker - 04/03/2021 12:00:00 AM EDT e CW1 ([facility]ly [facility]) Lidocaine Hydrochloride 40 MG/ML Topical Cream 02/18/2021 12:00:00 AM EDT eCW1 ([facility]ly [facility]) Diclofenac Sodium 0.01 MG/MG Topical Gel [Voltaren] 01/15/20 12:00:00 AM EDT eCW1 ([facility]) buspirone hydrochloride 5 MG Oral Tablet 01/14/2021 12:00:00 AM EDT eCW1 (Formerly [facility]) Diclofenac Sodium 0.01 MG/MG Topical Gel [Voltaren] 01/15/20 12:00:00 AM EDT eCW1 ([facility]) buspirone hydrochloride 5 MG Oral Tablet 01/14/2021 12:00:00 AM EDT eCW1 ([facility]ly [facility]) Amlodipine 2.5 MG Oral Tablet 10/17/2020 12:00:00 AM EDT eCW1 ([facility]ly [facility]) Amlodipine 2.5 MG Oral Tablet 10/17/2020 12:00:00 AM EDT eCW1 ([facility]) Amlodipine 2.5 MG Oral Tablet 10/17/2020 12:00:00 AM EDT eCW1 ([facility]) Amlodipine 2.5 MG Oral Tablet 10/17/2020 12:00:00 AM EDT eCW1 ([facility]) 24 HR Propranolol Hydrochloride 60 MG Extended Release Oral Capsule 06/18/2020 12:00:00 AM EST eCW1 ([facility]) 24 HR Propranolol Hydrochloride 60 MG Extended Release Oral Capsule 06/18/2020 12:00:00 AM EST eCW1 ([facility]) 24 HR Propranolol Hydrochloride 60 MG Extended Release Oral Capsule 06/18/2020 12:00:00 AM EST eCW1 ([facility])
[2021-04-14] MEDS ORDERED: MORPHINE 4 MG/ML 1ML VIAL/SYRINGE (J2270) IV PRN (02:55)
[2021-04-14] MEDS ORDERED: ONDANSETRON 4MG/2ML VIAL IV ONE (02:55)
[2021-04-14 03:35] LABS: BASO % 0.2 % (0.0-1.0); HEMATOCRIT 41.2 % (36.0-47.0); LYMPH # 1.5 10^3/uL (1.5-5.0); LYMPH % 16.3 % (24.0-44.0); MEAN CORPUSCULAR VOLUME 97.2 fl (80.0-96.0); MONO # 0.5 10^3/uL (0.0-0.8); MONO % 5.3 % (2.0-8.0); NEUTROPHILS % 77.8 % (36.0-66.0); PLATELET COUNT, AUTOMATED 439 10^3/uL (150-450); RED BLOOD COUNT 4.24 10^6/uL (4.00-5.40); WHITE BLOOD COUNT 8.9 10^3/uL (4.0-10.0)
[2021-04-14 04:06] LABS: ALBUMIN 3.8 GM/DL (3.2-5.2); BILIRUBIN,DIRECT 0.1 MG/DL (0.0-0.2); BILIRUBIN,TOTAL 0.5 MG/DL (0.2-1.0); TOTAL PROTEIN 7.6 GM/DL (6.4-8.2)
[2021-04-14] MEDS ORDERED: NS 1,000 ML IV ONE ×2 (04:10→06:25)
[2021-04-14 04:34] LABS: CALCIUM LEVEL 9.7 MG/DL (8.8-10.2); CREATININE FOR GFR 2.66 MG/DL (0.55-1.30); POTASSIUM SERUM 6.7 MEQ/L (3.5-5.1)
--- NOTE | 2021-04-14 06:01 | REPVR ---
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 TECHNIQUE: Imaging protocol: Computed tomography of the abdomen and pelvis without contrast. Radiation optimization: All CT scans at this facility use at least one of these dose optimization techniques: automated exposure control; mA and/or kV adjustment per patient size (includes targeted exams where dose is matched to clinical indication); or iterative reconstruction. COMPARISON: CT ABD PELVIS W/O FOL BY WIT 03/23/2021 8:43 AM FINDINGS: Lungs: Minimal bibasilar bullous change with minimal bronchiectasis. Liver: Normal. No mass. Gallbladder and bile ducts: The gallbladder measures 4.4 cm in diameter with minimal gallstones. Pancreas: Normal. No ductal dilation. Spleen: Normal. No splenomegaly. Adrenal glands: Normal. No mass. Kidneys and ureters: There is a right renal cyst measuring 2.6 cm with a Hounsfield measurement of 9 consistent with a simple cyst which is redemonstrated since the prior study with little change. Stomach and bowel: Mild stool throughout much of the colon. There is colonic diverticulosis without evidence of diverticulitis. Appendix: There are no changes of appendicitis. A normal appendix is not seen. Intraperitoneal space: No free air. 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 There is moderate atherosclerotic calcification of the abdominal aorta with extension into the iliac arteries. There is slight ectasia of the infrarenal abdominal aorta measuring 2.6 cm. Lymph nodes: Unremarkable. No enlarged lymph nodes. Urinary bladder: Last catheter in the bladder with collapse of the urinary bladder. Slightly lobular bladder wall thickening. Reproductive: Status post hysterectomy. Bones/joints: Unremarkable. No acute fracture. Soft tissues: Unremarkable. IMPRESSION: 1. Last catheter in the bladder with lobular bladder wall thickening which may reflect residual bladder mass or postoperative edema. 2. Mild distention of the gallbladder with minimal cholelithiasis. 3. Colonic diverticulosis without radiographic evidence of diverticulitis. 4. Status post hysterectomy. 5. Otherwise negative CT abdomen/pelvis. No free air and no free fluid. Electronically signed by: Sandro Urban On 04/14/2021 06:00:35 AM
[2021-04-14] MEDS ORDERED: PATIROMER SORBITEX CALCIUM 8.4 GM POWDER PACKET (VELTASSA) PO ONE (06:25)
[2021-04-14 07:37] LABS: RSV AMPLIFICATION NEGATIVE (NEGATIVE)
[2021-04-14] MEDS ORDERED: AMLO2.5T3 PO (08:01)
[2021-04-14] MEDS ORDERED: HOME MED LIST COMPLETE! XX SCH (08:05)
[2021-04-14] MEDS ORDERED: DEXTROSE 50% 50 ML SYRINGE IV STA (08:26)
[2021-04-14] MEDS ORDERED: HumuLIN R (REGULAR) INSULIN (NovoLIN R) **100U/ML** PER UNIT IV STA (08:26)
[2021-04-14] MEDS ORDERED: ACETAMINOPHEN TAB 650MG DOSE (2X325MG) PO PRN (08:30)
[2021-04-14] MEDS ORDERED: ALBUTEROL SULFATE 2.5 MG/0.5 ML INH NEB SOLN NEB ONE (08:30)
--- OUTSIDE RECORDS SUMMARY | 2021-04-14 08:43 | CCD ---
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 If you continue you may have access to information: Regarding HIV / AIDS; Provided by facilities licensed or operated by the [facility] Office of Mental Health; or Provided by the [facility] Office for People With Developmental Disabilities. If such information is present, then the following [facility] mandated warning applies: This information has been [...] law may result in a fine or correction sentence or both. A general authorization for the release of medical or other information is NOT sufficient authorization for further disc losure. Encounters Encounter Providers Location Date Indications Data Source(s ) [place] [address] [facility] [address] 04/06/2021 12:00:00 AM EDT eCW1 ([facility]) [place] [address] [facility] [address] 04/03/2021 12:00:00 AM EDT eCW1 ([facility]) [place] [address] [facility] [address] 04/02/2021 12:00:00 AM EDT [facility]CW1 [facility]) [place] [address] [facility] [address] 04/02/2021 12:00:00 AM EDT eCW1 ([facility]) [place] [address] [facility] [address] 04/01/2021 12:00:00 AM EDT eCW1 ([facility]) (Cysto1) Urology [address] [place] [address] 03/23/2021 12:00:00 AM EDT eCW1 ([facility]) [place] [address] [facility] [address] 03/20/2021 12:00:00 AM EDT eCW1 ([facility]) Outpatient Attender: Desean Negro DOConsultant: Bluebell Yuniel [id number] 03/18/2021 09:10:[address] [facility] Emergency Attender: Desean Deanerrer: Arben Ferrer EMERGENCY ROOM-ER 03/18/2021 07:42:00 AM EDT - 03/18/2021 09:28:00 AM EDT [facility] Patient discharged. [place] [address] [facility] [address] 03/18/2021 12:00:00 AM EDT eCW1 ([facility]) [place] [address] [facility] [address] 02/18/2021 12:00:00 AM EDT eCW1 ([facility]) [place] [address] [facility] [address] 01/22/2021 12:00:00 AM EDT eCW1 ([facility]) [place] [address] [facility] [address] 01/20/2021 12:00:00 AM EDT eCW1 ([facility]) Emergency Attender: MICHAEL Cedenoer : Arben Posadas MD EMERGENCY ROOM-ER 01/18/2021 02:23:00 AM EDT - 01/18/2021 04:54:00 AM EDT [facility] Patient discharged. [place] [address] [facility] [address] 01/15/2021 12:00:00 AM EDT eCW1 ([facility]) [place] [address] [facility] [address] 01/14/2021 12:00:00 AM EDT eCW1 ([facility]) Unknown [address] [facility] [address] 01/13/2021 12:00:00 AM EDT eCW1 ([facility]) [place] [address] [facility] [address] 10/17/2020 12:00:00 AM EDT eCW1 ([facility]) [place] [address] [facility] [address] 09/17/2020 12:00:00 AM EDT eCW1 ([facility]) [place] [address] [facility] [address] 08/15/2020 12:00:00 AM EST eCW1 ([facility]) [place] [address] [facility] [address] 08/05/2020 12:00:00 AM EST eCW1 ([facility]) [place] [address] [facility] [address] 06/18/2020 12:00:00 AM EST eCW1 ([facility]) [place] [address] [facility] [address] 06/09/2020 12:00:00 AM EST eCW1 ([facility]) [place] [address] [facility] [address] 05/18/2020 12:00:00 AM EST eCW1 ([facility]) [place] [address] [facility] [address] 04/17/2020 12:00:00 AM EST eCW1 ([facility]) [place] [address] [facility] [address] 04/09/2020 12:00:00 AM EST eCW1 ([facility]) Unknown [address] [facility] [address] 04/04/2020 12:00:00 AM EDT eCW1 ([facility]) [facility] [address] [facility] [address] 02/21/2020 12:00:00 AM EDT eCW1 ([facility]) Outpatient Attender: Arben Posadas MD 04/05/2018 10:00:00 AM [facility] Immunizations Vaccine Date Status Description Data Source(s) influenza, recombinant, quadrIvalent,injectable, prese rvative free 04/02/2021 11:02:00 AM EDT completed eCW1 ([facility]) influenza, recombinant, quadrIvalent,injectable, prese rvative free 04/02/2021 11:02:00 AM EDT completed eCW1 ([facility]) influenza, recombinant, quadrIvalent,injectable, prese rvative free 04/02/2021 11:02:00 AM EDT completed eCW1 ([facility]) influenza, recombinant, quadrIvalent,injectable, prese rvative free 04/02/2021 11:02:00 AM EDT completed eCW1 ([facility]) COVID-19 dose #2 given elsewhere Unspecified 09/01/2020 07:2 0:00 AM EDT completed eCW1 ([facility]) COVID-19 dose #2 given elsewhere Unspecified 09/01/2020 07:2 0:00 AM EDT completed eCW1 ([facility]) COVID-19 dose #2 given elsewhere Unspecified 09/01/2020 07:2 0:00 AM EDT completed eCW1 ([facility]) COVID-19 dose #2 given elsewhere Unspecified 09/01/2020 07:2 0:00 AM EDT completed eCW1 ([facility]) COVID-19 dose #2 given elsewhere Unspecified 09/01/2020 07:2 0:00 AM EDT completed eCW1 ([facility]) COVID-19 dose #2 given elsewhere Unspecified 09/01/2020 07:2 0:00 AM EDT completed eCW1 ([facility]) COVID-19 dose #2 given elsewhere Unspecified 09/01/2020 07:2 0:00 AM EDT completed eCW1 ([facility]) COVID-19 dose #2 given elsewhere Unspecified 09/01/2020 07:2 0:00 AM EDT completed eCW1 ([facility]) COVID-19 dose #2 given elsewhere Unspecified 09/01/2020 07:2 0:00 AM EDT completed eCW1 ([facility]) COVID-19 dose #2 given elsewhere Unspecified 09/01/2020 07:2 0:00 AM EDT completed eCW1 ([facility]) COVID-19 dose #2 given elsewhere Unspecified 09/01/2020 07:2 0:00 AM EDT completed eCW1 ([facility]) COVID-19 dose #2 given elsewhere Unspecified 09/01/2020 07:2 0:00 AM EDT completed eCW1 ([facility]) COVID-19 dose #2 given elsewhere Unspecified 09/01/2020 07:2 0:00 AM EDT completed eCW1 ([facility]) COVID-19 dose #2 given elsewhere Unspecified 09/01/2020 07:2 0:00 AM EDT completed eCW1 ([facility]) COVID-19 dose #2 given elsewhere Unspecified 09/01/2020 07:2 0:00 AM EDT completed eCW1 ([facility]) COVID-19 VACCINE Moderna 09/01/2020 12:00:00 AM EDT completed [facility] Vaccine Series Complete: YESThis Data wa s Submitted to [facility] [employer]. COVID-19 VACCINE, MRNA-1273, LNP-S (MODERNA)/PF 09/01/2020 1 2:00:00 AM EDT completed [facility] COVID-19 dose #1 given elsewhere Unspecified 07/31/2020 08:3 3:00 AM EST completed eCW1 ([facility]) COVID-19 dose #1 given elsewhere Unspecified 07/31/2020 08:3 3:00 AM EST completed eCW1 ([facility]) COVID-19 dose #1 given elsewhere Unspecified 07/31/2020 08:3 3:00 AM EST completed eCW1 ([facility]) COVID-19 dose #1 given elsewhere Unspecified 07/31/2020 08:3 3:00 AM EST completed eCW1 ([facility]) COVID-19 dose #1 given elsewhere Unspecified 07/31/2020 08:3 3:00 AM EST completed eCW1 ([facility]) COVID-19 dose #1 given elsewhere Unspecified 07/31/2020 08:3 3:00 AM EST completed eCW1 ([facility]) COVID-19 dose #1 given elsewhere Unspecified 07/31/2020 08:3 3:00 AM EST completed eCW1 ([facility]) COVID-19 dose #1 given elsewhere Unspecified 07/31/2020 08:3 3:00 AM EST completed eCW1 ([facility]) COVID-19 dose #1 given elsewhere Unspecified 07/31/2020 08:3 3:00 AM EST completed eCW1 ([facility]) COVID-19 dose #1 given elsewhere Unspecified 07/31/2020 08:3 3:00 AM EST completed eCW1 ([facility]) COVID-19 dose #1 given elsewhere Unspecified 07/31/2020 08:3 3:00 AM EST completed eCW1 ([facility]) COVID-19 dose #1 given elsewhere Unspecified 07/31/2020 08:3 3:00 AM EST completed eCW1 ([facility]) COVID-19 dose #1 given elsewhere Unspecified 07/31/2020 08:3 3:00 AM EST completed eCW1 ([facility]) COVID-19 dose #1 given elsewhere Unspecified 07/31/2020 08:3 3:00 AM EST completed eCW1 ([facility]) COVID-19 dose #1 given elsewhere Unspecified 07/31/2020 08:3 3:00 AM EST completed eCW1 ([facility]) COVID-19 dose #1 given elsewhere Unspecified 07/31/2020 08:3 3:00 AM EST completed eCW1 ([facility]) COVID-19 dose #1 given elsewhere Unspecified 07/31/2020 08:3 3:00 AM EST completed eCW1 ([facility]) COVID-19 VACCINE, MRNA-1273, LNP-S (MODERNA)/PF 07/31/2020 1 2:00:00 AM EST completed [facility] influenza, recombinant, quadrIvalent,injectable, prese rvative free 04/09/2020 08:55:00 AM EST completed eCW1 ([facility]) influenza, recombinant, quadrIvalent,injectable, prese rvative free 04/09/2020 08:55:00 AM EST completed eCW1 ([facility]) influenza, recombinant, quadrIvalent,injectable, prese rvative free 04/09/2020 08:55:00 AM EST completed eCW1 ([facility]) influenza, recombinant, quadrIvalent,injectable, prese rvative free 04/09/2020 08:55:00 AM EST completed eCW1 ([facility]) influenza, recombinant, quadrIvalent,injectable, prese rvative free 04/09/2020 08:55:00 AM EST completed eCW1 ([facility]) influenza, recombinant, quadrIvalent,injectable, prese rvative free 04/09/2020 08:55:00 AM EST completed eCW1 ([facility]) influenza, recombinant, quadrIvalent,injectable, prese rvative free 04/09/2020 08:55:00 AM EST completed eCW1 ([facility]) influenza, recombinant, quadrIvalent,injectable, prese rvative free 04/09/2020 08:55:00 AM EST completed eCW1 ([facility]) influenza, recombinant, quadrIvalent,injectable, prese rvative free 04/09/2020 08:55:00 AM EST completed eCW1 ([facility]) influenza, recombinant, quadrIvalent,injectable, prese rvative free 04/09/2020 08:55:00 AM EST completed eCW1 ([facility]) influenza, recombinant, quadrIvalent,injectable, prese rvative free 04/09/2020 08:55:00 AM EST completed eCW1 ([facility]) influenza, recombinant, quadrIvalent,injectable, prese rvative free 04/09/2020 08:55:00 AM EST completed eCW1 ([facility]) influenza, recombinant, quadrIvalent,injectable, prese rvative free 04/09/2020 08:55:00 AM EST completed eCW1 ([facility]) influenza, recombinant, quadrIvalent,injectable, prese rvative free 04/09/2020 08:55:00 AM EST completed eCW1 ([facility]) influenza, recombinant, quadrIvalent,injectable, prese rvative free 04/09/2020 08:55:00 AM EST completed eCW1 ([facility]) influenza, recombinant, quadrIvalent,injectable, prese rvative free 04/09/2020 08:55:00 AM EST completed eCW1 ([facility]) influenza, recombinant, quadrIvalent,injectable, prese rvative free 04/09/2020 08:55:00 AM EST completed eCW1 ([facility]) influenza, recombinant, quadrIvalent,injectable, prese rvative free 04/09/2020 08:55:00 AM EST completed eCW1 ([facility]) influenza, recombinant, quadrIvalent,injectable, prese rvative free 04/09/2020 08:55:00 AM EST completed eCW1 ([facility]) influenza, recombinant, quadrIvalent,injectable, prese rvative free 04/09/2020 08:55:00 AM EST completed eCW1 ([facility]) influenza, recombinant, quadrIvalent,injectable, prese rvative free 04/09/2020 08:55:00 AM EST completed eCW1 ([facility]) influenza, recombinant, quadrIvalent,injectable, prese rvative free 04/09/2020 08:55:00 AM EST completed eCW1 ([facility]) influenza, recombinant, quadrIvalent,injectable, prese rvative free 04/09/2020 08:55:00 AM EST completed eCW1 ([facility]) Medications Medication Brand Name Start Date Product Form Dose Route Admi nistrative Instructions Pharmacy Instructions Status Indications Reaction Description Data Source(s) Sulfamethoxazole 800 MG / Trimethoprim 1 60 MG Oral Tablet [Bactrim] Bactrim DS 800-160 MG Bactrim DS 800-160 MG 04/06/2021 12:00:00 AM EDT 1.0 {table t} active Bactrim DS 800-160 MG eCW1 ( [facility]) 800-160 mg 04/06/2021 12:00:00 AM EDT [...] active Bactrim DS 800-160 MG eCW1 ( [facility]) Walker - Walker - 04/03/2021 12:00:00 AM EDT activ e Walker - eCW1 ([facility]) Walker - Walker - 04/03/2021 12:00:00 AM EDT activ e Walker - eCW1 ([facility]) Walker - Walker - 04/03/2021 12:00:00 AM EDT activ e Walker - eCW1 ([facility]) Cephalexin 500 MG Oral Capsule CEPHALEXIN 03/18/2021 12:00:00 AM EDT capsule 14 TAKE ONE CAPSULE BY MOUTH TWICE A DAY TAKE ONE CAPSULE BY MO UT TWICE A DAY SOLD: 03/18/2021 [facility] Lidocaine Hydrochloride 40 MG/ML Topical Cream Lidocai ne HCl 4 % Lidocaine HCl 4 % 02/18/2021 12:00:00 AM EDT 1.0 {application} active Lidocaine HCl 4 % eCW1 ([facility]) Lidocaine Hydrochloride 40 MG/ML Topical Cream Lidocai ne HCl 4 % Lidocaine HCl 4 % 02/18/2021 12:00:00 AM EDT 1.0 {application} active Lidocaine HCl 4 % eCW1 ([facility]) Lidocaine Hydrochloride 40 MG/ML Topical Cream Lidocai ne HCl 4 % Lidocaine HCl 4 % 02/18/2021 12:00:00 AM EDT 1.0 {application} active Lidocaine HCl 4 % eCW1 ([facility]) Lidocaine Hydrochloride 40 MG/ML Topical Cream Lidocai ne HCl 4 % Lidocaine HCl 4 % 02/18/2021 12:00:00 AM EDT 1.0 {application} active Lidocaine HCl 4 % eCW1 ([facility]) Lidocaine Hydrochloride 40 MG/ML Topical Cream Lidocai ne HCl 4 % Lidocaine HCl 4 % 02/18/2021 12:00:00 AM EDT 1.0 {application} active Lidocaine HCl 4 % eCW1 ([facility]) Lidocaine Hydrochloride 40 MG/ML Topical Cream Lidocai ne HCl 4 % Lidocaine HCl 4 % 02/18/2021 12:00:00 AM EDT 1.0 {application} active Lidocaine HCl 4 % eCW1 ([facility]) Lidocaine Hydrochloride 40 MG/ML Topical Cream Lidocai ne HCl 4 % Lidocaine HCl 4 % 02/18/2021 12:00:00 AM EDT 1.0 {application} active Lidocaine HCl 4 % eCW1 ([facility]) Lidocaine Hydrochloride 40 MG/ML Topical Cream Lidocai ne HCl 4 % Lidocaine HCl 4 % 02/18/2021 12:00:00 AM EDT 1.0 {application} active Lidocaine HCl 4 % eCW1 ([facility]) Lidocaine Hydrochloride 40 MG/ML Topical Cream Lidocai ne HCl 4 % Lidocaine HCl 4 % 02/18/2021 12:00:00 AM EDT 1.0 {application} active Lidocaine HCl 4 % eCW1 ([facility]) buspirone hydrochloride 5 MG Oral Tablet busPIRone HCl 5 MG busPIRone HCl 5 MG 01/14/2021 12:00:00 AM EDT 1.0 {tablet} active busPIRone HCl 5 MG eCW1 ([facility]) buspirone hydrochloride 5 MG Oral Tablet busPIRone HCl 5 MG busPIRone HCl 5 MG 01/14/2021 12:00:00 AM EDT 1.0 {tablet} suspende d busPIRone HCl 5 MG eCW1 ([facility]) Diclofenac Sodium 0.01 MG/MG Topical Gel [Voltaren] Voltaren 1 % Voltaren 1 % 01/14/2021 12:00:00 AM EDT active Voltaren 1 % eCW1 ([facility]) Diclofenac Sodium 0.01 MG/MG Topical Gel [Voltaren] Voltaren 1 % Voltaren 1 % 01/14/2021 12:00:00 AM EDT suspended Voltaren 1 % eCW1 ([facility]) buspirone hydrochloride 5 MG Oral Tablet busPIRone HCl 5 MG busPIRone HCl 5 MG 01/14/2021 12:00:00 AM EDT 1.0 {tablet} active busPIRone HCl 5 MG eCW1 ([facility]) buspirone hydrochloride 5 MG Oral Tablet busPIRone HCl 5 MG busPIRone HCl 5 MG 01/14/2021 12:00:00 AM EDT 1.0 {tablet} suspende d busPIRone HCl 5 MG eCW1 ([facility]) Diclofenac Sodium 0.01 MG/MG Topical Gel [Voltaren] Voltaren 1 % Voltaren 1 % 01/14/2021 12:00:00 AM EDT suspended Voltaren 1 % eCW1 ([facility]) buspirone hydrochloride 5 MG Oral Tablet busPIRone HCl 5 MG busPIRone HCl 5 MG 01/14/2021 12:00:00 AM EDT 1.0 {tablet} suspende d busPIRone HCl 5 MG eCW1 ([facility]) Diclofenac Sodium 0.01 MG/MG Topical Gel [Voltaren] Voltaren 1 % Voltaren 1 % 01/14/2021 12:00:00 AM EDT suspended Voltaren 1 % eCW1 ([facility]) buspirone hydrochloride 5 MG Oral Tablet busPIRone HCl 5 MG busPIRone HCl 5 MG 01/14/2021 12:00:00 AM EDT 1.0 {tablet} suspende d busPIRone HCl 5 MG eCW1 ([facility]) Diclofenac Sodium 0.01 MG/MG Topical Gel [Voltaren] Voltaren 1 % Voltaren 1 % 01/14/2021 12:00:00 AM EDT suspended Voltaren 1 % eCW1 ([facility]) buspirone hydrochloride 5 MG Oral Tablet busPIRone HCl 5 MG busPIRone HCl 5 MG 01/14/2021 12:00:00 AM EDT 1.0 {tablet} suspende d busPIRone HCl 5 MG eCW1 ([facility]) buspirone hydrochloride 5 MG Oral Tablet busPIRone HCl 5 MG busPIRone HCl 5 MG 01/14/2021 12:00:00 AM EDT 1.0 {tablet} suspende d busPIRone HCl 5 MG eCW1 ([facility]) Diclofenac Sodium 0.01 MG/MG Topical Gel [Voltaren] Voltaren 1 % Voltaren 1 % 01/14/2021 12:00:00 AM EDT suspended Voltaren 1 % eCW1 ([facility]) Diclofenac Sodium 0.01 MG/MG Topical Gel [Voltaren] Voltaren 1 % Voltaren 1 % 01/14/2021 12:00:00 AM EDT suspended Voltaren 1 % eCW1 ([facility]) 1 % 01/14/2021 12:00:00 AM EDT gel 100 APPLY 4 GRAMS TOPICALLY TO RIGHT HIP FOUR TIMES A DAY APPLY 4 GRAMS TOPICALLY TO RIGHT HIP FOUR TIMES A DAY SOLD: 01/15/2021 [facility] buspirone hydrochloride 5 MG Oral Tablet busPIRone HCl 5 MG busPIRone HCl 5 MG 01/14/2021 12:00:00 AM EDT 1.0 {tablet} suspende d busPIRone HCl 5 MG eCW1 ([facility]) Diclofenac Sodium 0.01 MG/MG Topical Gel [Voltaren] Voltaren 1 % Voltaren 1 % 01/14/2021 12:00:00 AM EDT active Voltaren 1 % eCW1 ([facility]) buspirone hydrochloride 5 MG Oral Tablet BUSPIRONE HCL 01/14/2021 12:00:00 AM EDT tablet 60 TAKE ONE TABLET BY MOUTH TWI CE A DAY TAKE ONE TABLET BY MOUTH TWICE A DAY SOLD: 01/15/2021 [facility] Diclofenac Sodium 0.01 MG/MG Topical Gel [Voltaren] Voltaren 1 % Voltaren 1 % 01/14/2021 12:00:00 AM EDT suspended Voltaren 1 % eCW1 ([facility]) 60 mg 12/05/2020 12:00:00 AM EDT [...] activ e amLODIPine Besylate 2.5 MG eCW1 ([facility]) Amlodipine 2.5 MG Oral Tablet amLODIPine Besylate 2.5 MG amLODIPine Besylate 2.5 MG 10/17/2020 12:00:00 AM EDT 1.0 {tablet} activ e amLODIPine Besylate 2.5 MG eCW1 ([facility]) 2.5 mg 10/17/2020 12:00:00 AM EDT tablet 90 TAKE ONE TABLET BY MOUTH EVERY DAY TAKE ONE TABLET BY MOUTH EVERY DAY SOLD: 01/15/2021 [facility] Amlodipine 2.5 MG Oral Tablet AmLODIPine Besylate 2.5 MG AmLODIPine Besylate 2.5 MG 10/17/2020 12:00:00 AM EDT 1.0 {tablet} activ e AmLODIPine Besylate 2.5 MG eCW1 ([facility]) Amlodipine 2.5 MG Oral Tablet amLODIPine Besylate 2.5 MG amLODIPine Besylate 2.5 MG 10/17/2020 12:00:00 AM EDT 1.0 {tablet} activ e amLODIPine Besylate 2.5 MG eCW1 ([facility]) Amlodipine 2.5 MG Oral Tablet amLODIPine Besylate 2.5 MG amLODIPine Besylate 2.5 MG 10/17/2020 12:00:00 AM EDT 1.0 {tablet} activ e amLODIPine Besylate 2.5 MG eCW1 ([facility]) Amlodipine 2.5 MG Oral Tablet amLODIPine Besylate 2.5 MG amLODIPine Besylate 2.5 MG 10/17/2020 12:00:00 AM EDT 1.0 {tablet} activ e amLODIPine Besylate 2.5 MG eCW1 ([facility]) Amlodipine 2.5 MG Oral Tablet amLODIPine Besylate 2.5 MG amLODIPine Besylate 2.5 MG 10/17/2020 12:00:00 AM EDT 1.0 {tablet} activ e amLODIPine Besylate 2.5 MG eCW1 ([facility]) Amlodipine 2.5 MG Oral Tablet AMLODIPINE [...] active Propranolol HCl ER 60 MG eCW1 ([facility]) 60 mg 06/18/2020 12:00:00 AM EST [...] active Propranolol HCl ER 60 MG eCW1 ([facility]) 24 HR Propranolol Hydrochloride 60 MG Ex tended Release Oral Capsule Propranolol HCl ER 60 MG Propranolol HCl ER 60 MG 06/18/2020 12:00:00 AM EST 1.0 {capsule} active Propranolol HCl ER 60 MG eCW1 ([facility]) 60 mg 06/18/2020 12:00:00 AM EST [...] active Propranolol HCl ER 60 MG eCW1 ([facility]) 24 HR Propranolol Hydrochloride 60 MG Ex tended Release Oral Capsule Propranolol HCl ER 60 MG Propranolol HCl ER 60 MG 06/18/2020 12:00:00 AM EST 1.0 {capsule} active Propranolol HCl ER 60 MG eCW1 ([facility]) 80 mg 06/10/2020 12:00:00 AM EST [...] type / Coverage type Policy ID Covered constitution party ID Covered constitution party's relationship to hall Policy Hall Plan Information [employer] [id number] S [id number] [employer] [id number] S [id number] [place] [id number] S [id number] [place] [id number] S [id number] B [id number] [facility] [id number] SPO [id number] [facility] [id number] SPO [id number] MEDICARE [id number] SP [id number] [facility] [id number] [facility] [place] [id number] [employer] [id number] S [id number] [place] [id number] S [id number] ANSI-Commercial [id number] ANSI-Medicare Part B [id number] ANSI-Medicare Part B [id number] ANSI-Commercial [id number] MEDICARE [id number] SP [id number] B [employer] LIFE O [id number] S [id number] MEDICARE C [id number] S [id number] B [place] [id number] S [id number] FOR LIFE [id number] ANSI-Medicare Part B [id number] ANSI-Commercial [id number] ANSI-Medicare Part B [id number] ANSI-Commercial [id number] [employer] [id number] S [id number] Problems, Conditions, and Diagnoses Code Display Name Description Problem Type Effective Dates Data Source(s) Z87.891 Personal history of nicotine dependence PERSONAL HISTORY OF NICOTINE DEPENDENCE Diagnosis 03/18/2021 07:42:00 AM [facility] 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 Diagnosis 03/18/2021 07:42:00 AM [facility] 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), and cerebral infarction without residual deficits PRSNL HX OF TIA (TIA), AND CEREB INFRC W /O RESID D Diagnosis 03/18/2021 07:42:00 AM [facility] Z79.899 Other halfway (current) drug therapy O [facility]ER [facility] (CURRENT) DRUG THERAPY Diagnosis 03/18/2021 07:42:00 AM [facility] Z79.82 rn long term care (current) use of aspirin RESIDENTIAL CARPENTER (CU RRENT) USE OF ASPIRIN Diagnosis 03/18/2021 07:42:00 AM [facility] E78.00 PURE HYPERCHOLESTEROLEMIA, UNSPECIFIED P URE HYPERCHOLESTEROLEMIA, UNSPECIFIED Diagnosis 03/18/2021 07:42:00 AM [facility] I10 Essential (primary) hypertension ESSENTIAL (PRIMARY) H YPERTENSION Diagnosis 03/18/2021 07:42:00 AM [facility] N95.0 Postmenopausal bleeding POSTMENOPAUSAL BLEEDING Diagno sis 03/18/2021 07:42:00 AM [facility] N93.9 Abnormal uterine and vaginal bleeding, u nspecified ABNORMAL UTERINE AND VAGINAL BLEEDING, UNSPECIFIED Diagnosis 03/18/2021 07:42:00 AM [facility] Y93.89 Activity, other specified ACTIVITY, OTHER SPECIFIED Di agnosis 01/18/2021 02:23:00 AM [facility] Y92.[address] the place of o ccurrence of the external cause OTH PLACES THE PLACE OF OCCURRENCE OF THE EXTER Diagnosis 02:23:00 AM [facility] T43.595A Adverse effect of other anti psychotics and neuroleptics, initial encounter ADVERSE EFFECT OF OTH ANTIPSYCHOTICS AND NEUROLEPT Diagnosis 01/18/2021 02:23:00 AM [facility] F41.9 Anxiety disorder, unspecified ANXIETY DISORDER, UNSPEC IFIED Diagnosis 01/18/2021 02:23:00 AM [facility] Z01.818 Pre-procedure evaluation check Preop testing Problem 03/23/2021 12:00:00 AM EDT eCW1 ([facility]) R31.0 Gross hematuria Gross hematuria Problem 03/23/2021 12:0 0:00 AM EDT eCW1 ([facility]) N39.0 Urinary tract infectious disease UTI (urinary tract in fection) Problem 03/23/2021 12:00:00 AM EDT eCW1 ([facility]) N32.89 Bladder mass Bladder mass Problem 03/18/2021 12:00:00 A M EDT eCW1 ([facility]) N18.4 [id number] Stage 4 chronic kidney disease Problem 08/15/2020 12:00:00 AM EST eCW1 ([facility]) R44.2 Hallucinations Hallucination, hypnopompic Problem 06/18/2020 12:00:00 AM EST eCW1 ([facility]) I12.9 [id number] Hypertensive chronic kidney disease with stage 1 through stage 4 chronic kidney disease, or unspecified chronic kidney disease Problem 06/18/2020 12:00:00 AM EST eCW1 ([facility]) I12.9 [id number] Hypertensive kidney disease Problem 05/18/20 20 12:00:00 AM EST eCW1 ([facility]) O10.211 [id number] Hypertensive kidney disease affecting in first trimester Problem 05/18/2020 12:00:00 AM EST eCW1 ([facility]) Surgeries/Procedures Procedure Description Date Indications Data Source(s) PC-INTERPRETATION AND REPORT 04/02/2021 12:00:00 AM ED T eCW1 ([facility]) FC-ELECTROCARDIOGRAM, TRACING ONLY 04/02/2021 12:00:00 AM EDT eCW1 ([facility]) Imm: Flublok Quadrivalent 18 years & older 0.5mL IM Influenz a 04/02/2021 12:00:00 AM EDT eCW1 ([facility]) Med: Lidocaine Jelly 2% 6ml Intravesically (Glydo) 03/23/2021 12:00:00 AM EDT eCW1 ([facility]) Immunization: Flublok Quadrivalent (18 years & older) 0.5mL IM (Influenza) 04/09/2020 12:00:00 AM EST eCW1 ([facility]) Results ID Date Data Source FREE T4 & TSH PANEL 04/02/2021 12:00:00 AM EDT eCW1 ([facility]) Name Value Range Interpretation Code Description Data Anabell rce(s) Supporting Document(s) 4.100 0.358-3.740 THYROID STIMULATING HORM ONE eCW1 ([facility]) 1.42 0.76-1.46 FREE T4 eCW1 ([facility]) ID Date Data Source Comprehensive Metabolic Profile (CMP) 04/02/2021 12:00:00 AM EDT eCW1 ([facility]) Name Value Range Interpretation Code Description Data Anabell rce(s) Supporting Document(s) 1.53 0.55-1.30 CREATININE FOR GFR eCW1 ([facility]) 100 70-100 GLUCOSE, FASTING eCW1 ([facility]) 24 7-18 BLOOD UREA NITROGEN eCW1 ([facility]) 34.1 >32 GLOMERULAR FILTRATION RATE eCW 1 ([facility]) 6.1 3.5-5.1 POTASSIUM SERUM eCW1 ([facility]) 108 98-107 CHLORIDE LEVEL eCW1 ([facility]) 136 136-145 SODIUM LEVEL eCW1 ([facility]) 9.4 8.8-10.2 CALCIUM LEVEL eCW1 ([facility]) 26 21-32 CARBON DIOXIDE LEVEL eCW1 ([facility]) 16 12-78 ALT/SGPT eCW1 ([facility]) 21 7-37 AST/SGOT eCW1 ([facility]) 7.3 6.4-8.2 TOTAL PROTEIN eCW1 ([facility]) 199 45-117 ALKALINE PHOSPHATASE eCW1 ([facility]) 0.5 0.2-1.0 BILIRUBIN,TOTAL eCW1 ([facility]) 3.5 3.2-5.2 ALBUMIN eCW1 ([facility]) 0.9 1.2-2.2 ALBUMIN/GLOBULIN RATIO eCW1 ([facility]) ID Date Data Source [id number] 03/18/2021 09:58:00 AM EDT [facility] Patient: ALEXANDER SIFUENTES Observat ion Report - Physicians/Mid Levels [facility].VisitID: [id number] [place] [address] [phone], FRegistration Date/Time: 03/18/2021 06:41 Weight:40.8 kg (S). [...] rce(s) Supporting Document(s) ID Date Data Source [id number] 03/18/2021 08:53:00 AM EDT [facility] [...] rce(s) Supporting Document(s) ID Date Data Source [id number] 03/20/2021 12:39:00 [facility] Name Value Range Interpretation Code Description Data Anabell rce(s) Supporting Document(s) ORGANISM [facility] COLONY COUNT N [facility] ID Date Data Source [id number] 03/18/2021 08:24:00 AM EDT [facility] TSYSORDER [id number] Name Value Range Interpretation Code Description Data Anabell rce(s) Supporting Document(s) URINE RBC TNTC /hpf 0-3 H [facility] URINE WBC 5-10 /hpf 0-5 H [facility] URINE EPITHELIAL CELLS NONE SEEN /hpf 0 [facility] URINE BACTERIA 1+ NONE SEEN [facility] ID Date Data Source [id number] 03/18/2021 08:22:00 AM EDT [facility] ital TSYSORDER [id number] Name Value Range Interpretation Code Description Data Anabell rce(s) Supporting Document(s) URINE COLOR. RED [facility] URINE APPEARANCE TURBID [facility] l URINE GLUCOSE (UA) NEGATIVE mg/dL NEGATIVE [facility] URINE BILIRUBIN NEGATIVE NEGATIVE [facility] URINE KETONE NEGATIVE mg/dL NEGATIVE [facility] SPECIFIC GRAVITY,URINE 1.025 1.005-1.030 [facility] URINE BLOOD 3+(LARGE) NEGATIVE [facility] PH,URINE 8.5 5.0-9.0 [facility] URINE PROTEIN 4+(>=300) mg/dL NEGATIVE [facility] ital URINE UROBILINOGEN NORMAL(0.2-1) mg/dL 0-1 [facility] URINE NITRATE NEGATIVE NEGATIVE [facility] URINE LEUKOCYTE ESTERASE 1+(SMALL) NEGATIVE [facility] ID Date Data Source [id number] 03/18/2021 07:57:00 AM EDT [facility] l TSYSORDER [id number] Name Value Range Interpretation Code Description Data Anabell rce(s) Supporting Document(s) FREE T4 1.46 ng/dL 0.76-1.46 [facility] ID Date Data Source [id number] 03/18/2021 07:57:00 AM EDT [facility] l TSYSORDER [id number] Name Value Range Interpretation Code Description Data Anabell rce(s) Supporting Document(s) TSH 6.404 uIU/mL 0.358-3.74 H [facility] ID Date Data Source [id number] 03/18/2021 07:41:00 AM EDT [facility] l TSYSORDER [id number] Name Value Range Interpretation Code Description Data Anabell rce(s) Supporting Document(s) PARTIAL THROMBOPLASTIN TIME 24.5 SECONDS 21.2-27.3 [facility] ID Date Data Source [id number] 03/18/2021 07:41:00 AM EDT [facility] l TSYSORDER [id number] Name Value Range Interpretation Code Description Data Anbaell rce(s) Supporting Document(s) PROTHROMBIN TIME (PATIENT) 9.6 SECONDS 9.1-11.6 [facility] INR 0.92 0.87-1.06 [facility] ID Date Data Source [id number] 03/18/2021 07:36:00 AM EDT [facility] l TSYSORDER [id number] Name Value Range Interpretation Code Description Data Anabell rce(s) Supporting Document(s) MAGNESIUM 2.2 mg/dL 1.8-2.4 [facility] ID Date Data Source [id number] 03/18/2021 07:36:00 AM EDT [facility] l TSYSORDER [id number] Name Value Range Interpretation Code Description Data Anabell rce(s) Supporting Document(s) GLUCOSE 112 mg/dL 74-106 H [facility] BLOOD UREA NITROGEN 19 mg/dL 7-18 H [facility] ital CREATININE 1.57 mg/dL 0.6-1.0 H [facility] SODIUM 138 mmol/L 136-145 [facility] POTASSIUM 4.8 mmol/L 3.5-5.1 [facility] CHLORIDE 102 mmol/L 98-107 [facility] CO2 30 mmol/L 21-32 [facility] CALCIUM 9.5 mg/dL 8.5-10.1 [facility] ANION GAP 6.0 mmol/L 5-12 [facility] GLOMERULAR FILTRATION RATE 31 mL/min [facility] GFR IS CALCULATED IN mL/min/1.73m2 MIKE L FUNCTION: >90MILDLY DECREASED: 60-89MILDY TO MODERATELY DECREASED: 45-59 MODERATELY TO SEVERELY DECREASED: 30-44SEVERELY DECREASED: 15-29RENAL FAILURE: <15 AST 11 U/L 15-37 L [facility] ALT 18 U/L 12-78 [facility] ALKALINE PHOSPHATASE 232 U/L 46-116 H [facility] TOTAL BILIRUBIN 0.6 mg/dL 0.2-1.0 [facility] TOTAL PROTEIN 8.5 g/dl 6.4-8.2 H [facility] ALBUMIN 4.0 gm/dL 3.4-5.0 [facility] ID Date Data Source [id number] 03/18/2021 07:16:00 AM EDT [facility] TSYSORDER [id number] Name Value Range Interpretation Code Description Data Anabell rce(s) Supporting Document(s) WHITE BLOOD COUNT 12.6 K/mm3 4.0-10.0 H [facility] indira RED BLOOD COUNT 4.25 M/mm3 4.00-5.50 [facility] HEMOGLOBIN 14.0 gm/dL 12.0-16.0 [facility] HEMATOCRIT 41.6 % 36.0-48.8 [facility] MEAN CELL VOLUME 97.9 fl 80-96 H [facility] l MEAN CORPUSCULAR HEMOGLOBIN 32.9 pg 27.0-31.0 H [facility] MEAN CORPUSCULAR HGB CONC 33.7 g/dl 32.0-36.0 [facility] RED CELL DISTRIBUTION WIDTH 13.0 % 10.0-14.5 [facility] PLATELET COUNT 402 K/mm3 172-450 [facility] MEAN PLATELET VOLUME 9.2 fl 9.0-13.0 [facility] pital GRAN % 69.4 % 50-80.0 [facility] IG% 0.4 % 0.0-0.2 H [facility] LYMPH % 16.6 % 25.0-50.0 L [facility] MONO % 9.0 % 2.0-10.0 [facility] EOS % 4.1 % 0-5.0 [facility] BASO % 0.5 % 0.0-2.0 [facility] GRAN # 8.7 K/mm3 2.0-8.00 H [facility] IG# 0.1 K/mm3 0.0-0.2 [facility] LYMPH # 2.1 K/mm3 1.0-5.0 [facility] MONO # 1.1 K/mm3 0.10-1.20 [facility] EOS # 0.5 K/mm3 0.0-0.5 [facility] BASO # 0.1 K/mm3 0.0-0.2 [facility] ID Date Data Source [id number] 01/19/2021 08:28:00 PM EDT [facility] Patient: ALEXANDER SIFUENTES Observat ion Report - Physicians/Mid Levels [facility].VisitID: [id number] [place] [address] [phone], [facility] Date/Time: 01/18/2021 01:13 Weight:41.7 kg. Height/Length:61 inches [...] rce(s) Supporting Document(s) ID Date Data Source [id number] 01/18/2021 07:53:00 AM EDT [facility] WITHOUT CONTRAST DATE [...] rce(s) Supporting Document(s) ID Date Data Source [id number] 01/18/2021 07:47:00 AM EDT [facility] [...] pulmonary disease Electronically signed in PS360 by: oWlf Moore M.D. 01/18/2021 7:42 EDT Name Value Range Interpretation Code Description Data Anabell rce(s) Supporting Document(s) ID Date Data Source [id number] 01/18/2021 03:15:00 AM EDT [facility] [id number] Name Value Range Interpretation Code Description Data Anabell rce(s) Supporting Document(s) FREE T4 1.8 ng/dL 0.76-1.46 H [facility] ID Date Data Source [id number] 01/18/2021 03:15:00 AM EDT [facility] [id number] Name Value Range Interpretation Code Description Data Anabell rce(s) Supporting Document(s) TSH 3.504 uIU/mL 0.360-3.740 [facility] ID Date Data Source [id number] 01/18/2021 03:01:00 AM EDT [facility] TSYSORDER [id number] Name Value Range Interpretation Code Description Data Anabell rce(s) Supporting Document(s) MAGNESIUM 2.3 mg/dL 1.8-2.4 [facility] ID Date Data Source [id number] 01/18/2021 03:01:00 AM EDT [facility] TSYSORDER [id number] Name Value Range Interpretation Code Description Data Anabell rce(s) Supporting Document(s) LIPASE 246 U/L 73-393 [facility] ID Date Data Source [id number] 01/18/2021 03:01:00 AM EDT [facility] TSYSORDER [id number] Name Value Range Interpretation Code Description Data Anabell rce(s) Supporting Document(s) TROPONIN-HIGH SENSITIVITY 7.2 ng/L 0-60.4 [facility] ID Date Data Source [id number] 01/18/2021 03:01:00 AM EDT [facility] TSYSORDER [id number] Name Value Range Interpretation Code Description Data Anabell rce(s) Supporting Document(s) GLUCOSE 109 mg/dL 74-106 H [facility] BLOOD UREA NITROGEN 28 mg/dL 7-18 H [facility] ital CREATININE 1.55 mg/dL 0.6-1.0 H [facility] SODIUM 142 mmol/L 136-145 [facility] POTASSIUM 4.4 mmol/L 3.5-5.1 [facility] CHLORIDE 104 mmol/L 98-107 [facility] CO2 25 mmol/L 21-32 [facility] CALCIUM 9.3 mg/dL 8.5-10.1 [facility] ANION GAP 13.0 mmol/L 5-12 H [facility] GLOMERULAR FILTRATION RATE 32 mL/min [facility] GFR IS CALCULATED IN mL/min/1.73m2 MIKE L FUNCTION: >90MILDLY DECREASED: 60-89MILDY TO MODERATELY DECREASED: 45-59 MODERATELY TO SEVERELY DECREASED: 30-44SEVERELY DECREASED: 15-29RENAL FAILURE: <15 AST 15 U/L 15-37 [facility] ALT 17 U/L 12-78 [facility] ALKALINE PHOSPHATASE 254 U/L 46-116 H [facility] pital TOTAL BILIRUBIN 0.5 mg/dL 0.2-1.0 [facility] TOTAL PROTEIN 8.0 g/dl 6.4-8.2 [facility] ALBUMIN 4.0 gm/dL 3.4-5.0 [facility] ID Date Data Source [id number] 01/18/2021 02:52:00 AM EDT [facility] TSYSORDER [id number] Name Value Range Interpretation Code Description Data Anabell rce(s) Supporting Document(s) PARTIAL THROMBOPLASTIN TIME 24.1 SECONDS 21.2-27.3 [facility] ID Date Data Source [id number] 01/18/2021 02:52:00 AM EDT [facility] TSYSORDER [id number] Name Value Range Interpretation Code Description Data Anabell rce(s) Supporting Document(s) PROTHROMBIN TIME (PATIENT) 9.9 SECONDS 9.1-11.6 [facility] INR 0.95 0.87-1.06 [facility] ID Date Data Source [id number] 01/18/2021 02:34:00 AM T [facility] TSYSORDER [id number] Name Value Range Interpretation Code Description Data Anabell rce(s) Supporting Document(s) WHITE BLOOD COUNT 13.1 K/mm3 4.0-10.0 H [facility] indira RED BLOOD COUNT 4.28 M/mm3 4.00-5.50 [facility] HEMOGLOBIN 14.0 gm/dL 12.0-16.0 [facility] HEMATOCRIT 40.8 % 36.0-48.8 [facility] MEAN CELL VOLUME 95.3 fl 80-96 [facility] MEAN CORPUSCULAR HEMOGLOBIN 32.7 pg 27.0-31.0 H [facility] MEAN CORPUSCULAR HGB CONC 34.3 g/dl 32.0-36.0 [facility] RED CELL DISTRIBUTION WIDTH 12.9 % 10.0-14.5 [facility] PLATELET COUNT 308 K/mm3 172-450 [facility] MEAN PLATELET VOLUME 9.7 fl 9.0-13.0 [facility] GRAN % 71.2 % 50-80.0 [facility] IG% 0.2 % 0.0-0.2 [facility] LYMPH % 14.5 % 25.0-50.0 L [facility] MONO % 10.4 % 2.0-10.0 H [facility] EOS % 3.3 % 0-5.0 [facility] BASO % 0.4 % 0.0-2.0 [facility] GRAN # 9.3 K/mm3 2.0-8.00 H [facility] IG# 0.0 K/mm3 0.0-0.2 [facility] LYMPH # 1.9 K/mm3 1.0-5.0 [facility] MONO # 1.4 K/mm3 0.10-1.20 H [facility] EOS # 0.4 K/mm3 0.0-0.5 [facility] BASO # 0.1 K/mm3 0.0-0.2 [facility] Procedure Social History Code Duration Value Status Description Data Source(s ) Smoking 04/02/2021 12:00:00 AM EDT Former Smoker completed Former Smoker eCW1 ([facility]) Smoking 04/02/2021 12:00:00 AM EDT Former Smoker completed Former Smoker eCW1 ([facility]) Smoking 04/02/2021 12:00:00 AM EDT Former Smoker completed Former Smoker eCW1 ([facility]) Smoking 04/02/2021 12:00:00 AM EDT Former Smoker completed Former Smoker eCW1 ([facility]) Smoking 03/23/2021 12:00:00 AM EDT Former Smoker completed Former Smoker eCW1 ([facility]) Smoking 03/23/2021 12:00:00 AM EDT Former Smoker completed Former Smoker eCW1 ([facility]) Smoking 03/23/2021 12:00:00 AM EDT Former Smoker completed Former Smoker eCW1 ([facility]) Smoking 03/20/2021 12:00:00 AM EDT Former Smoker completed Former Smoker eCW1 ([facility]) Smoking 02/18/2021 12:00:00 AM EDT Former Smoker completed Former Smoker eCW1 ([facility]) Smoking 01/20/2021 12:00:00 AM EDT Former Smoker completed Former Smoker eCW1 ([facility]) Smoking 01/20/2021 12:00:00 AM EDT Former Smoker completed Former Smoker eCW1 ([facility]) Smoking 01/14/2021 12:00:00 AM EDT Former Smoker completed Former Smoker eCW1 ([facility]) Smoking 01/14/2021 12:00:00 AM EDT Former Smoker completed Former Smoker eCW1 ([facility]) Smoking 10/17/2020 12:00:00 AM EDT Former Smoker completed Former Smoker eCW1 ([facility]) Smoking 10/17/2020 12:00:00 AM EDT Former Smoker completed Former Smoker eCW1 ([facility]) Smoking 08/15/2020 12:00:00 AM EST Former Smoker completed Former Smoker eCW1 ([facility]) Smoking 08/15/2020 12:00:00 AM EST Former Smoker completed Former Smoker eCW1 ([facility]) Smoking 06/18/2020 12:00:00 AM EST Former Smoker completed Former Smoker eCW1 ([facility]) Smoking 06/18/2020 12:00:00 AM EST Former Smoker completed Former Smoker eCW1 ([facility]) Vital Signs ID Date Data Source [id number] Name Value Range Interpretation Code Description Data Source(s) Body weight 88.4 [lb_av] 88.4 [lb_av] eCW1 ([facility]) Heart rate 72 /min 72 /min eCW1 ([facility]) Respiratory rate 18 /min 18 /min eCW1 ([facility]) Body temperature 98 [degF] 98 [degF] eCW1 ([facility]) Systolic blood pressure 124 mm[Hg] 124 mm[Hg] e CW1 ([facility]) Diastolic blood pressure 74 mm[Hg] 74 mm[Hg] eCW1 ([facility]) Body height 61.5 [in_i] 61.5 [in_i] W1 ([facility]) Body mass index (BMI) [Ratio] 16.43 kg/m2 16.43 kg/m2 eCW1 ([facility]) Diastolic blood pressure 62 mm[Hg] 62 mm[Hg] eCW1 ([facility]) Body weight 86 [lb_av] 86 [lb_av] eCW1 ([facility]) Body weight 39.01 kg 39.01 kg eCW1 ([facility]) Body height 61.5 [in_i] 61.5 [in_i] eCW1 ([facility]) Body mass index (BMI) [Ratio] 15.98 kg/m2 15.98 kg/m2 eCW1 ([facility]) Heart rate 72 /min 72 /min eCW1 ([facility]) Respiratory rate 18 /min 18 /min eCW1 ([facility]) Body temperature 97.6 [degF] 97.6 [degF] eCW1 ( [facility]) Systolic blood pressure 112 mm[Hg] 112 mm[Hg] e CW1 ([facility]) Body weight [lb_av] eCW1 ([facility]) Body weight 39.01 kg 39.01 kg eCW1 ([facility]) Body height 61.5 [in_i] 61.5 [in_i] eCW1 ([facility]) Body mass index (BMI) [Ratio] 15.98 kg/m2 15.98 kg/m2 eCW1 ([facility]) Heart rate 75 /min 75 /min eCW1 ([facility]) Respiratory rate 18 /min 18 /min eCW1 ([facility]) Body temperature 97.8 [degF] 97.8 [degF] eCW1 ( [facility]) Systolic blood pressure 95 mm[Hg] 95 mm[Hg] e CW1 ([facility]) Diastolic blood pressure 55 mm[Hg] 55 mm[Hg] eCW1 ([facility]) Body weight 86 [lb_av] 86 [lb_av] eCW1 ([facility]) Body temperature 97.1 [degF] 97.1 [degF] eCW1 ( [facility]) Body weight 39.01 kg 39.01 kg eCW1 ([facility]) Systolic blood pressure 142 mm[Hg] 142 mm[Hg] e CW1 ([facility]) Body height 61.5 [in_i] 61.5 [in_i] eCW1 ([facility]) Diastolic blood pressure 68 mm[Hg] 68 mm[Hg] eCW1 ([facility]) Body mass index (BMI) [Ratio] 15.98 kg/m2 15.98 kg/m2 eCW1 ([facility]) Heart rate 84 /min 84 /min eCW1 ([facility]) Respiratory rate 18 /min 18 /min eCW1 ([facility]) Body weight 89.8 [lb_av] 89.8 [lb_av] eCW1 ([facility]) Body height 61.5 [in_i] 61.5 [in_i] eCW1 ([facility]) Body mass index (BMI) [Ratio] 16.69 kg/m2 16.69 kg/m2 eCW1 ([facility]) Heart rate 78 /min 78 /min eCW1 ([facility]) Respiratory rate 18 /min 18 /min eCW1 ([facility]) Body temperature 97.8 [degF] 97.8 [degF] eCW1 ( [facility]) Systolic blood pressure 144 mm[Hg] 144 mm[Hg] e CW1 ([facility]) Diastolic blood pressure 60 mm[Hg] 60 mm[Hg] eCW1 ([facility]) Body weight 90.8 [lb_av] 90.8 [lb_av] eCW1 ([facility]) Body height 61.5 [in_i] 61.5 [in_i] eCW1 ([facility]) Body mass index (BMI) [Ratio] 16.88 kg/m2 16.88 kg/m2 eCW1 ([facility]) Heart rate 76 /min 76 /min eCW1 ([facility]) Respiratory rate 20 /min 20 /min eCW1 ([facility]) Body temperature 97.8 [degF] 97.8 [degF] eCW1 ( [facility]) Systolic blood pressure 150 mm[Hg] 150 mm[Hg] e CW1 ([facility]) Diastolic blood pressure 77 mm[Hg] 77 mm[Hg] eCW1 ([facility]) Body weight 92.8 [lb_av] 92.8 [lb_av] eCW1 ([facility]) Body temperature 97.8 [degF] 97.8 [degF] eCW1 ( [facility]) Systolic blood pressure 151 mm[Hg] 151 mm[Hg] e CW1 ([facility]) Body height 61.5 [in_i] 61.5 [in_i] eCW1 ([facility]) Body mass index (BMI) [Ratio] 18.4 kg/m2 18.4 k g/m2 eCW1 ([facility]) Diastolic blood pressure 76 mm[Hg] 76 mm[Hg] eCW1 ([facility]) Heart rate 72 /min 72 /min eCW1 ([facility]) Respiratory rate 18 /min 18 /min eCW1 ([facility]) Body temperature 97.8 [degF] 97.8 [degF] eCW1 ( [facility]) Body weight 94.12 [lb_av] 94.12 [lb_av] eCW1 ([facility]) Body height 61.5 [in_i] 61.5 [in_i] eCW1 ([facility]) Body mass index (BMI) [Ratio] 17.49 kg/m2 17.49 kg/m2 eCW1 ([facility]) Heart rate 85 /min 85 /min eCW1 ([facility]) Respiratory rate 18 /min 18 /min eCW1 ([facility]) Diastolic blood pressure 80 mm[Hg] 80 mm[Hg] eCW1 ([facility]) Systolic blood pressure 124 mm[Hg] 124 mm[Hg] e CW1 ([facility]) Body weight 96.8 [lb_av] 96.8 [lb_av] eCW1 ([facility]) Body height 61.5 [in_i] 61.5 [in_i] eCW1 ([facility]) Body mass index (BMI) [Ratio] 17.99 kg/m2 17.99 kg/m2 eCW1 ([facility]) Heart rate 70 /min 70 /min eCW1 ([facility]) Respiratory rate 18 /min 18 /min eCW1 ([facility]) Body temperature 98 [degF] 98 [degF] [facility] [place]) Systolic blood pressure 126 mm[Hg] 126 mm[Hg] e CW1 ([facility]) Diastolic blood pressure 72 mm[Hg] 72 mm[Hg] eCW1 ([facility]) Systolic blood pressure 124 mm[Hg] 124 mm[Hg] e CW1 ([facility]) Diastolic blood pressure 73 mm[Hg] 73 mm[Hg] eCW1 ([facility]) Body weight 98.4 [lb_av] 98.4 [lb_av] eCW1 ([facility]) Body height 61.5 [in_i] 61.5 [in_i] eCW1 ([facility]) Body mass index (BMI) [Ratio] 18.29 kg/m2 18.29 kg/m2 eCW1 ([facility]) Heart rate 69 /min 69 /min eCW1 ([facility]) Respiratory rate 18 /min 18 /min eCW1 ([facility] [place]) Body temperature 98 [degF] 98 [degF] eCW1 ([facility] [place]) Patient Treatment Plan of Care Planned Activity Planned Date Details Description Data Source (s) Sulfamethoxazole 800 MG / Trimethoprim 160 MG Oral Tab let [Bactrim] 04/06/2021 12:00:00 AM EDT eCW1 ([facility]) Sulfamethoxazole 800 MG / Trimethoprim 160 MG Oral Tab let [Bactrim] 04/06/2021 12:00:00 AM EDT eCW1 ([facility]) Walker - 04/03/2021 12:00:00 AM EDT e CW1 ([facility]) Walker - 04/03/2021 12:00:00 AM EDT e CW1 ([facility]) Walker - 04/03/2021 12:00:00 AM EDT e CW1 ([facility]) Lidocaine Hydrochloride 40 MG/ML Topical Cream 02/18/2021 12:00:00 AM EDT eCW1 ([facility]) Diclofenac Sodium 0.01 MG/MG Topical Gel [Voltaren] 01/15/20 12:00:00 AM EDT eCW1 ([facility]) buspirone hydrochloride 5 MG Oral Tablet 01/14/2021 12:00:00 AM EDT eCW1 ([facility]) Diclofenac Sodium 0.01 MG/MG Topical Gel [Voltaren] 01/15/20 12:00:00 AM EDT eCW1 ([facility]) buspirone hydrochloride 5 MG Oral Tablet 01/14/2021 12:00:00 AM EDT eCW1 ([facility]) Amlodipine 2.5 MG Oral Tablet 10/17/2020 12:00:00 AM EDT eCW1 ([facility]) Amlodipine 2.5 MG Oral Tablet 10/17/2020 12:00:00 AM EDT eCW1 ([facility]) Amlodipine 2.5 MG Oral Tablet 10/17/2020 12:00:00 AM EDT eCW1 ([facility]) Amlodipine 2.5 MG Oral Tablet 10/17/2020 12:00:00 AM EDT eCW1 ([facility]) 24 HR Propranolol Hydrochloride 60 MG Extended Release Oral Capsule 06/18/2020 12:00:00 AM EST eCW1 ([facility]) 24 HR Propranolol Hydrochloride 60 MG Extended Release Oral Capsule 06/18/2020 12:00:00 AM EST eCW1 ([facility]) 24 HR Propranolol Hydrochloride 60 MG Extended Release Oral Capsule 06/18/2020 12:00:00 AM EST eCW1 ([facility])
[2021-04-14] MEDS: PROPRANOLOL 60 MG LA CAP PO SCH (09:00)
--- NOTE | 2021-04-14 09:00 | HPEPDOC ---
General Date of Admission Apr 14, 2021 at 08:26 Date of Service: Apr 14, 2021 Chief Complaint The patient is a 89-year-old female admitted with a reason for visit of JOSE. Source: Patient History of Present Illness Patient is a 89 years old female with a past medical history of anxiety, hyperlipidemia, bladder tumor, osteopenia CVA, Raynaud's syndrome presented to hospital with increased left hip and low back pain. Patient stated that she has a chronic back pain for years but for past few days her pain became progressively worse. Patient denied any fever or chills. Of note patient had Cystoscopy, transurethral partial resection of bladder tumor (greater than 5cm). In ER patient was found to have no leukocytosis, potassium 6.7, sodium level 131, creatinine 2.6. EKG showed normal sinus rhythm without acute ischemic changes. CT abdomen pelvis showed lobular bladder wall thickening which may reflect residual bladder mass or postoperative edema, Colonic diverticulosis without radiographic evidence of diverticulitis. Home Medications Scheduled Amlodipine Besylate (Amlodipine Besylate) 2.5 Mg Tablet, 2.5 MG PO DAILY, (Reported) PER PT, MED ON HOLD UNTIL AFTER SURGERY, UNSURE WHY IT WAS PUT ON HOLD Imipramine HCl (Imipramine HCl) 10 Mg Tablet, 20 MG PO QHS, (Reported) Lovastatin (Lovastatin) 20 Mg Tablet, 20 MG PO QPM, (Reported) Propranolol HCl (Propranolol HCl ER) 60 Mg Cap.sa.24h, 60 MG PO DAILY, ( Reported) Sulfamethoxazole/Trimethoprim (Bactrim Ds Tablet) 1 Each Tablet, 1 TAB PO BID, (Reported) FOR 10 DAYS, STARTED 04/06 Allergies Coded Allergies: latex (Verified Allergy, Intermediate, rash, itch, 04/06/21) Past Medical History Medical History Bladder cancer ANXIETY HYPERCHOLESTEROLEMIA PAT LEFT CARTOID BRUIT HTN OSTEOPENIA SHINGLES 09/2003 STROKE EFFECTED RIGHT SIDE JUL 2011 RAYNAUD'S SYNDROME ROSACEA HYPOPOTASSEMIA Surgical History HYSTERECTOMY APPENDECTOMY TONSILLECTOMY HEMORRHOID TROUBLE BREAST TUMOR REMOVAL- BENIGN Family History FATHER: MOTHER: 1 BROTHER(S) , 1 SISTER(S) . 1 SON(S) , 2 DAUGHTER(S) . Social History * Smoker: Denies Alcohol: Denies Drugs: denies A-FIB/CHADSVASC A-FIB History Current/History of A-Fib/PAF?: No Current PO Anticoag Therapy: No Review of Systems Constitutional: Denies: Chills, Fever Eyes: Denies: Pain ENT: Denies: Head Aches Skin: Denies: Rash Pulmonary: Denies: Dyspnea Cardiovascular: Denies: Chest Pain Gastrointestinal: Denies: Nausea Genitourinary: Denies: Hematuria Hematologic: Denies: Bruising Endocrine: Denies: Polydipsia Musculoskeletal: Reports: Back Pain, Leg Pain Neurological: Denies: Weakness Psych: Reports: Mood Normal Physical Examination General Exam: Positive: Alert, Cooperative Eye Exam: Positive: PERRLA ENT Exam: Positive: Atraumatic Neck Exam: Positive: Supple; Negative: JVD Chest Exam: Positive: Clear to auscultation Heart Exam: Positive: Rate Normal Telemetry: Positive: No significant arrhythmia Abdomen Exam: Positive: Normal bowel sounds Extremity Exam: Positive: Tenderness Skin Exam: Positive: Nl turgor and temperature Neuro Exam: Positive: Strength at 5/5 X4 ext Psych Exam: Positive: Oriented x 3 Vital Signs Vital Signs Date Time Temp Pulse Resp B/P (MAP) Pulse Ox O2 Delivery O2 Flow Rate FiO2 04/14/21 07:56 91 18 161/77 (105) 98 Room Air 04/14/21 01:09 96.1 Laboratory Data Labs 24H Laboratory Tests 2 04/14/21 03:27: Immature Granulocyte % (Auto) 0.4, Neutrophils (%) (Auto) 77.8H, Lymphocytes (%) (Auto) 16.3L, Monocytes (%) (Auto) 5.3, Eosinophils (%) (Auto) 0.0, Basophils (%) (Auto) 0.2, Neutrophils # (Auto) 7.0, Lymphocytes # (Auto) 1.5, Monocytes # (Auto) 0.5, Eosinophils # (Auto) 0.0, Basophils # (Auto) 0.0, Nucleated Red Blood Cells % (auto) 0.3H, Anion Gap 14, Glomerular Filtration Rate 18.0L, Calcium Level 9.7, Total Bilirubin 0.5, Direct Bilirubin 0.1, Aspartate Amino Transf (AST/SGOT) 26, Alanine Aminotransferase (ALT/SGPT) 19, Alkaline Phosphatase 220H, Total Protein 7.6, Albumin 3.8, Albumin/Globulin Ratio 1.0L, Lipase 200 04/14/21 03:32: POC Glucose (Misc Panel) 113H, POC Sodium (Misc Panel) 130L, POC Potassium (Misc Panel) 6.5*H, POC Chloride (Misc Panel) 101, POC Total CO2 (Misc Panel) 19.0L, POC Blood Urea Nitrogen (Misc Panel 34H, POC Ionized Calcium (Misc Panel) 4.7, POC Creatinine (Misc Panel) 2.6H, POC Hematocrit (Misc Panel) 42.0 04/14/21 06:51: Coronavirus (COVID-19)(PCR) NEGATIVE, Influenza Type A (RT-PCR) NEGATIVE, Influ felicia Type B (RT-PCR) NEGATIVE, Respiratory Syncytial Virus (PCR) NEGATIVE CBC/BMP Laboratory Tests 04/14/21 03:27 Assessment/Plan Patient is a 89 years old female with a past medical history of anxiety, hyperlipidemia, bladder tumor, osteopenia CVA, Raynaud's syndrome presented to hospital with increased left hip and low back pain. Patient stated that she has a chronic back pain for years but for past few days her pain became progressively worse. Patient denied any fever or chills. Of note patient had Cystoscopy, transurethral partial resection of bladder tumor (greater than 5cm). In ER patient was found to have no leukocytosis, potassium 6.7, sodium level 131, creatinine 2.6. EKG showed normal sinus rhythm without acute ischemic changes. CT abdomen pelvis showed lobular bladder wall thickening which may reflect residual bladder mass or postoperative edema, Colonic diverticulosis without radiographic evidence of diverticulitis. Problems (1) JOSE (acute kidney injury) Status: Acute Problem Text: Combined renal and prerenal IV fluid Appreciate/agree with director prospect consult (2) Left hip pain Problem Text: Patient has diagnosis of osteopenia There is concern for stress/osteoporotic fracture CT left hip (3) Low back pain Problem Text: There is concern for compression fracture CT of lumbar area Pain management (4) Hypertension Problem Text: I increased the dose of amlodipine to 10 mg (5) Hyperkalemia Problem Text: BMP every 4 hours Kayexalate, D50, 10 units of insulin Sodium bicarb Appreciate/agree with director prospect consult Plan / VTE VTE Prophylaxis Ordered?: Yes MALCOM SANTOYO DO Apr 14, 2021 09:00
[2021-04-14] MEDS ORDERED: SOD POLYSTYRENE SULFONATE SUSP 15 GM/60 ML UD PO ONE (09:15)
[2021-04-14] MEDS ORDERED: CALCIUM GLUCONATE 1,000 MG in D5W MINI-BAG PLUS 100 ML IV ONE (09:30)
--- NOTE | 2021-04-14 09:38 | REPVR ---
PROCEDURE INFORMATION: Exam: CT Lumbar Spine Without Contrast Exam date and time: 04/14/2021 9:10 AM Age: 89 years old Clinical indication: Low back pain; Additional info: Hip fracture TECHNIQUE: Imaging protocol: Computed tomography images of the lumbar spine without contrast. Radiation optimization: All CT scans at this facility use at least one of these dose optimization techniques: automated exposure control; mA and/or kV adjustment per patient size (includes targeted exams where dose is matched to clinical indication); or iterative reconstruction. COMPARISON: 1. CT ABD PELVIS W/O CONTRAST 04/14/2021 4:[address] ABD PELVIS W/O FOL BY WIT 03/23/2021 8:43:38 AM FINDINGS: Vertebrae: Mild levocurvature of lumbar spine. There is unchanged superior and inferior endplate concave compression fracture with anterior wedging of L2. There is unchanged partially healed right L3 pedicle fracture. There is new and acute compression fracture of superior endplate L4 with concave compression and slight anterior and posterior height loss with both anterior buckling of anterior cortical margin and posterior buckling/retropulsion 2.6 mm of posterior vertebral margin. This only mildly effaces the ventral spinal canal. No evidence of fracture through posterior elements. There are degenerative changes with marginal osteophyte formation, facet degeneration, disc bulges, grade 1 retrolisthesis at L2-L3 and grade 1 anterolisthesis at L3-L4. There is stable neural foraminal narrowing greatest L3-L4, L4-L5 and L5-S1 bilaterally and spinal stenosis which appears mild at L2-L3 and L3-L4. Discs/Spinal canal/Neural foramina: See "Vertebrae" finding. Soft tissues: There is paravertebral soft tissue swelling associated with L4 acute fracture. IMPRESSION: Acute L4 superior endplate compression fracture. Other nonacute findings as described. Electronically signed by: Kerry Calzada On 04/14/2021 09:37:41 AM
[2021-04-14 10:04] VITALS: BP 134/64
--- NOTE | 2021-04-14 10:18 | REP ---
INDICATION: Hip fracture. CT left hip without contrast 04/14/2021. COMPARISON: CT abdomen pelvis without contrast 04/14/2021 at 4:25 AM. TECHNIQUE: Noncontrast scanning through the left hip with coronal and sagittal bone window reconstructions. FINDINGS: Some mild narrowing of the hip joint space representing osteoarthritic change in chondromalacia. Subchondral cysts in the acetabular roof are seen. There is no evidence of femoral head fracture or AVN. No femoral neck fracture or impaction. The intertrochanteric region unremarkable. Proximal femoral shaft intact. Anterior and posterior columns of the acetabulum without fracture. Pubic rami and pubic symphysis visible or unremarkable. Greater and lesser trochanters intact. Calcifications of the iliac and femoral arteries noted. The iliopsoas, obturator externus and hamstring tendons in their insertions are grossly intact the remainder of the visualized iliac bone unremarkable. No inguinal adenopathy or mass nor hernia. Gluteus muscles are unremarkable. No subcutaneous contusion or muscular hematoma identified. Last catheter in the bladder which is nearly empty. Otherwise negative. IMPRESSION: 1. Some osteoarthritic changes about the left hip with subchondral cystic changes acetabular roof and joint space narrowing/chondromalacia. No fracture, AVN, focal lytic or destructive lesion otherwise. <Electronically signed by Shiv Tirado > 04/14/21 101
[2021-04-14] MEDS ORDERED: SODIUM BICARBONATE 150 MEQ in D5W 1,000 ML IV ONE (11:00)
[2021-04-14 11:01] VITALS: BP 134/64
[2021-04-14] MEDS: ATORVASTATIN 10 MG TAB PO SCH (11:02)
[2021-04-14 11:17] LABS: CREATININE FOR GFR 2.16 MG/DL (0.55-1.30); GLOMERULAR FILTRATION RATE 22.9 (>32); POTASSIUM SERUM 5.5 MEQ/L (3.5-5.1)
[2021-04-14 11:18] LABS: CALCIUM LEVEL 8.1 MG/DL (8.8-10.2); MAGNESIUM LEVEL 1.9 MG/DL (1.8-2.4)
[2021-04-14 12:47] VITALS: BP 109/53
[2021-04-14] MEDS ORDERED: SODIUM BICARBONATE 75 MEQ in NS 0.45% 1,000 ML IV SCH (13:00)
[2021-04-14] MEDS: PERCOCET 5MG/325MG TAB PO PRN (13:59)
[2021-04-14 14:00] VITALS: BP 105/54
[2021-04-14 15:05] LABS: CALCIUM LEVEL 9.6 MG/DL (8.8-10.2); CREATININE FOR GFR 2.31 MG/DL (0.55-1.30); GLOMERULAR FILTRATION RATE 21.2 (>32); POTASSIUM SERUM 5.3 MEQ/L (3.5-5.1)
[2021-04-14 18:13] LABS: CALCIUM LEVEL 9.7 MG/DL (8.8-10.2); CREATININE FOR GFR 2.09 MG/DL (0.55-1.30); GLOMERULAR FILTRATION RATE 23.8 (>32); POTASSIUM SERUM 5.7 MEQ/L (3.5-5.1)
--- NOTE | 2021-04-14 19:27 | ECGEPIP ---
[facility] - ED Test Date: 2021-04-14 Pat Name: ALEXANDER SIFUENTES Department: Room: - Gender: Female Diploma Medical Assistant: ROM : 1930 Requested By: STANLEY Ferrer Order Number: [id number] Reading MD: Erasmo Estrada Measurements Intervals Hulbert Rate: 90 P: 84 NE: 146 QRS: -36 QRSD: 78 T: 93 QT: 366 QTc: 447 Interpretive Statements Normal sinus rhythm Possible Left atrial enlargement Left axis deviation Nonspecific ST and T wave abnormality vs ischemia No prior ECG for comparison Electronically Signed on 04-14-2021 19:27:16 EST by Erasmo Estrada
[2021-04-14 19:36] LABS: CALCIUM LEVEL 9.7 MG/DL (8.8-10.2); CREATININE FOR GFR 2.04 MG/DL (0.55-1.30); GLOMERULAR FILTRATION RATE 24.5 (>32); POTASSIUM SERUM 5.5 MEQ/L (3.5-5.1)
--- NOTE | 2021-04-14 20:34 | CR ---
NEPHROLOGY CONSULTATION DATE: 04/14/2021 REQUESTING PHYSICIAN: Antoine North D.O. CONSULTING PHYSICIAN: Minna Elliott M.D. REASON FOR CONSULTATION: Acute renal failure and hyperkalemia. HISTORY OF PRESENT ILLNESS: Mrs. Rivers is an 89-year-old frail lady which multiple chronic medical problems. She has recently been diagnosed with a bladder tumor and was treated for a possible urinary tract infection with antibiotics for the last couple of weeks. She reports that last week she took Bactrim and Tuesday she had transurethral resection of her bladder tumor. Apparently the tumor was too large and only partially I was resected. She was discharged to home, however she was in severe pain and came back to the Emergency Room due to which she was admitted. She was found to have hyperkalemia with a potassium level of 6.7 and creatinine 2.6. A nephrology consultation was requested and the patient is seen this morning. She had a CAT scan of the abdomen and pelvis done in the Emergency Room which did show a residual bladder mass and no hydronephrosis. PAST MEDICAL AND SURGICAL HISTORY: The patient's past medical and surgical history is significant for: 1. History of hypertension. 2. Anxiety. 3. Hypercholesterolemia. 4. Bladder mass, status post partial resection. 5. Prior stroke with minimal right sided weakness. 6. History of Raynaud's phenomenon. 7. History of paroxysmal atrial tachycardia. 8. History of coronary artery disease. 9. History of osteopenia. MEDICATIONS: Her home medications include: 1. Amlodipine 2.5 mg daily. 2. Imipramine 10 mg two tablets at bedtime. 3. Lovastatin 20 mg at bedtime. 4. Propanolol ER 60 mg daily. 5. Bactrim DS one tablet twice daily which she took all week. ALLERGIES: She has allergy to Latex. FAMILY HISTORY: Unremarkable. Her parents are both . There is no family history of kidney disease. PERSONAL AND SOCIAL HISTORY: The patient denies any alcohol, tobacco or drug use. REVIEW OF SYSTEMS: Constitutional: The patient is feeling very weak and reports significant pain yesterday after she was discharged to home. She has not been eating or drinking well all week last week as she was taking Bactrim and it affected her appetite. She denies diarrhea. Ears, Nose and Throat: Unremarkable. Cardiovascular System: Significant for hypertension. She denies any dyspnea or chest pain. Respiratory System: Negative for cough or hemoptysis. GI System: Significant for decreased appetite. She denies any diarrhea or vomiting. System: As per history of present illness. Musculoskeletal System: Negative for leg edema or any significant arthritis. She denies using any NSAIDs. Endocrine System: Negative for diabetes or thyroid problems. Neurological System: Significant for prior stroke. She denies any headache at present. She has no history of seizure disorder. Psychosocial System: Negative for depression or anxiety. Hematological System: Negative for any anticoagulation. Skin: Negative for rash or ulcers. PHYSICAL EXAMINATION: GENERAL APPEARANCE: Elderly frail lady laying in the bed without any acute distress. VITAL SIGNS: Temperature 97.8 degrees Fahrenheit, heart rate 88 per minute, respiratory rate 20 per minute, blood pressure 134/64 mm of mercury and oxygen saturation is 98% on room air. HEENT: Her head is atraumatic. Oral mucosa is somewhat dry. Pupils are equal and reactive to light and sclerae is anicteric. EARS, NOSE AND THROAT: Unremarkable. NECK: Supple and without JVD or thyroid enlargement. HEART: Regular, S1 and S2. LUNGS: Clear to auscultation. ABDOMEN: Soft with suprapubic area tenderness and bowel sounds are present. There is no palpable on room air. EXTREMITIES: Without any cyanosis or clubbing. NEUROLOGICAL: She is awake, alert and at her baseline mentation. LABORATORY DATA: On admission her sodium was 131 and potassium 6.7, BUN 35 and creatinine 2.66. CO2 was 18 and calcium 9.7. Albumin level 3.8 and total protein 7.6. A repeat chemistry showed a sodium of 133 and potassium 5.5. BUN is 31 and creatinine 2.16, CO2 20. Hemoglobin 14 and hematocrit 41 with a WBC count of 8.9. IMAGING: CAT scan of the abdomen and pelvis showed a residual mass in the bladder. A Last catheter is present and no hydronephrosis. PROBLEMS: 1. Acute kidney injury most likely related to dehydration and use of Bactrim she still looks clinically dehydrated with dry mouth and peripheral edema. She has received some IV fluids since admission. I would recommend to continue IV fluids at 80 mL per hour for at least one more liter. She should also be allowed to drink ad angi by mouth. 2. Hyperkalemia she has been treated with calcium gluconate and Kayexalate. Potassium level has improved. We will start with an IV sodium bicarbonate drip which will also help to improve her hyperkalemia further. Her hyperkalemia is most likely related to the use of Bactrim. 3. Metabolic acidosis she does have mild metabolic acidosis and sodium bicarbonate drip at 80 mL an hour is being started. This will help to improve her kidney function, correct her metabolic acidosis and also help to improve her hyperkalemia. Urine output will need to be monitored closely. Thank you for involving me in the care of Mrs. Rivers. I will follow her along with you.
[2021-04-14] MEDS ORDERED: SIMVASTATIN 20 MG TAB PO SCH (21:00)
[2021-04-14] MEDS: HEPARIN SOD (PORCINE) 5000UNITS/ML 1ML VIAL/SYRINGE SC SCH (21:18)
[2021-04-14 22:00] VITALS: BP 116/56
[2021-04-15 01:05] LABS: CALCIUM LEVEL 9.2 MG/DL (8.8-10.2); CREATININE FOR GFR 2.03 MG/DL (0.55-1.30); GLOMERULAR FILTRATION RATE 24.6 (>32)
[2021-04-15 06:00] VITALS: BP 128/60
[2021-04-15 06:28] LABS: HEMATOCRIT 37.6 % (36.0-47.0); HEMOGLOBIN 12.5 g/dl (12.0-15.5); MEAN CORPUSCULAR HEMOGLOBIN 33.5 pg (27.0-33.0); MEAN CORPUSCULAR HGB CONC 33.2 g/dl (32.0-36.5); MEAN CORPUSCULAR VOLUME 100.8 fl (80.0-96.0); PLATELET COUNT, AUTOMATED 353 10^3/uL (150-450); RED BLOOD COUNT 3.73 10^6/uL (4.00-5.40); WHITE BLOOD COUNT 15.7 10^3/uL (4.0-10.0)
[2021-04-15 07:03] LABS: ALBUMIN 3.3 GM/DL (3.2-5.2); BILIRUBIN,TOTAL 0.8 MG/DL (0.2-1.0); CREATININE FOR GFR 1.85 MG/DL (0.55-1.30); GLOMERULAR FILTRATION RATE 27.4 (>32); MAGNESIUM LEVEL 1.9 MG/DL (1.8-2.4); POTASSIUM SERUM 5.1 MEQ/L (3.5-5.1); TOTAL PROTEIN 6.7 GM/DL (6.4-8.2)
[2021-04-15] MEDS: PROPRANOLOL 60 MG LA CAP PO SCH ×2 (09:00→09:13)
[2021-04-15] MEDS ORDERED: CALCIUM/VITAMIN D 500 MG TAB PO SCH (09:00)
[2021-04-15] MEDS: ATORVASTATIN 10 MG TAB PO SCH ×2 (09:00→09:10)
[2021-04-15] MEDS: HEPARIN SOD (PORCINE) 5000UNITS/ML 1ML VIAL/SYRINGE SC SCH ×2 (09:13→20:25)
[2021-04-15] MEDS: PERCOCET 5MG/325MG TAB PO PRN (11:39)
--- NOTE | 2021-04-15 12:28 | IPN ---
NEPHROLOGY PROGRESS NOTE DATE: 04/15/2021 SUBJECTIVE: Ms. Rivers is seen this morning on her bedside. She is not feeling good and reports that nothing goes down when she tries to eat. She is very nauseated. She denies any dyspnea or chest pain. She has no abdominal pain any more. PHYSICAL EXAMINATION: Temperature 97 degrees Fahrenheit, heart rate 92 per minute and respiratory rate 18 per minute. Blood pressure 128/60 mmHg and oxygen saturation 97% on room air. Head: Atraumatic. Neck: Supple and without JVD or thyroid enlargement. Heart: Sounds are irregular. Lungs: Clear to auscultation. Abdomen: Soft and bowel sounds are present. Extremities: Without any cyanosis or clubbing. Neurologically: She is awake, alert and at her baseline mentation. LABORATORY DATA: Today's labs show: WBC count 15.7, hemoglobin 12.5, hematocrit 37.6. Sodium 134, potassium 5.1, CO2 19, BUN 30, creatinine 1.85, glucose 60 and calcium 9. PROBLEMS/PLAN: 1. Acute renal failure superimposed on chronic kidney disease most likely related to dehydration and the use of Bactrim last week: Kidney function is gradually improving. Her oral intake is very low and she is very nauseated. I am going to start her back on I.V. fluid for hydration. 2. Hyperkalemia related to the use of Bactrim and acute kidney injury: Her potassium is within normal range though still on the high side. This will hopefully improve as her urine output increases. 3. Hyponatremia: She has borderline hyponatremia for which no intervention is needed at present. 4. Metabolic acidosis: She has mild metabolic acidosis again and I am going to give her sodium bicarbonate in the I.V. fluid. We will continue to monitor her chemistry on a daily basis. 5. Bladder tumor: She had partial resection and will probably need further procedure later on.
--- NOTE | 2021-04-15 12:40 | IPNPDOC ---
Text Note Date of Service The patient was seen on 04/15/21. NOTE Subjective: Patient complains of difficulties in swallowing, she stated with she reported that food stuck in her throat. She stated that back pain significantly subsided. Objective: GENERAL APPEARANCE: Frail female HEENT: no scleral icterus, no JVD, EOMI CARDIOVASCULAR: S1S2 LUNGS: Diminished lung sounds bilaterally ABDOMEN: soft & not tender w palpation MUSCULOSKELETAL: no cyanosis, no swelling, tenderness over L4-L5 on palpation INTEGUMENT: no generalized pallor NEUROLOGICAL: cranial nerve function from 2-12 intact, follows commands, speech not dysarthric Assessment/Plan Patient is a 89 years old female with a past medical history of anxiety, hyperlipidemia, bladder tumor, osteopenia CVA, Raynaud's syndrome presented to hospital with increased left hip and low back pain. Patient stated that she has a chronic back pain for years but for past few days her pain became progressively worse. Patient denied any fever or chills. Of note patient had Cystoscopy, transurethral partial resection of bladder tumor (greater than 5cm). In ER patient was found to have no leukocytosis, potassium 6.7, sodium level 131, creatinine 2.6. EKG showed normal sinus rhythm without acute ischemic changes. CT abdomen pelvis showed lobular bladder wall thickening which may reflect residual bladder mass or postoperative edema, Colonic diverticulosis without radiographic evidence of diverticulitis. Problems (1) JOSE (acute kidney injury)/metabolic acidosis Combined renal and prerenal. Most likely secondary to Bactrim and dehydration Continue bicarb Improved (2) Left hip pain/osteoporosis/ osteoarthritis CT showed Some osteoarthritic changes about the left hip with subchondral cystic change acetabular roof and joint space narrowing/chondromalacia. No fracture, AVN, focal lytic or destructive lesion otherwise Continue pain management (3) Low back pain CT of lumbar area shows Acute L4 superior endplate compression fracture Alendronate, vitamin D/calcium started Appreciate/agree with orthopedic surgeon consult ARU screen Pain management (4) Hypertension Blood pressure under control Continue home meds (5) Hyperkalemia Most likely secondary to Bactrim Continue bicarb, potassium level within normal limit Oropharyngeal dysfunction Speech evaluation, modified barium swallow test Plan / VTE VTE Prophylaxis Ordered?: Yes VS,Fishbone, I+O VS, Fishbone, I+O Laboratory Tests 04/14/21 12:29 04/14/21 15:48 04/14/21 18:51 04/15/21 00:30 04/15/21 06:06 Vital Signs Date Time Temp Pulse Resp B/P (MAP) Pulse Ox O2 Delivery O2 Flow Rate FiO2 04/15/21 11:39 18 04/15/21 06:00 97.0 93 128/60 (82) 97 Room Air I&O- Last 24 Hours up to 6 AM 04/15/21 06:00 Intake Total 2030 ml Output Total 1500 ml Balance 530 ml MALCOM SANTOYO DO Apr 15, 2021 12:40
--- NOTE | 2021-04-15 13:31 | CR.PDOC ---
General Date of Consultation: Apr 15, 2021 Attending Physician: JOVANY THORNTON MD Consultation History of Present Illness Patient is a 89 years old female with a past medical history of anxiety, hyperlipidemia, bladder tumor, osteopenia CVA, Raynaud's syndrome presented to hospital with increased left hip and low back pain. Patient stated that she has a chronic back pain for years but for past few days her pain became progressively worse. CT shows L4 compression fracture. Patient knows she has osteoporosis. Understands previous lumbar fracture. States she does not want anything done with her back. Denies any lower extremity weakness. Denies any trauma. No red flag symptoms Allergies Coded Allergies: latex (Verified Allergy, Intermediate, rash, itch, 04/06/21) Past Medical History Past Medical History Medical History Bladder cancer ANXIETY HYPERCHOLESTEROLEMIA PAT LEFT CARTOID BRUIT HTN OSTEOPENIA SHINGLES 09/2003 STROKE EFFECTED RIGHT SIDE JUL 2011 RAYNAUD'S SYNDROME ROSACEA HYPOPOTASSEMIA Surgical History HYSTERECTOMY APPENDECTOMY TONSILLECTOMY HEMORRHOID TROUBLE BREAST TUMOR REMOVAL- BENIGN Family History FATHER: MOTHER: 1 BROTHER(S) , 1 SISTER(S) . 1 SON(S) , 2 DAUGHTER(S) . Social History * Smoker: Denies Alcohol: Denies Drugs: denies Review of Systems Review of Systems Constitutional: Denies: Chills, Fever Eyes: Denies: Pain ENT: Denies: Head Aches Skin: Denies: Rash Pulmonary: Denies: Dyspnea Cardiovascular: Denies: Chest Pain Gastrointestinal: Denies: Nausea Genitourinary: Denies: Hematuria Hematologic: Denies: Bruising Endocrine: Denies: Polydipsia Musculoskeletal: Reports: Back Pain, Leg Pain Neurological: Denies: Weakness Psych: Reports: Mood Normal Physical Examination Physical Examination General Exam: Positive: Alert, Cooperative Eye Exam: Positive: PERRLA ENT Exam: NAD Neck Exam: Positive: Supple; Chest Exam: Breathing comfortably room air Heart Exam: Vital signs stable Abdomen Exam: Soft nontender Extremity Exam: Moving all 4 extremities, denies any sensory deficits, complaining of back pain. Relatively comfortable lying in bed Skin Exam: Nl turgor and temperature Neuro Exam: Positive: Strength at 5/5 X4 ext Psych Exam: Positive: Oriented x 3 Assessment: L4 compression fracture and underlying osteoporosis. Patient states she does not want any intervention in terms of her lumbar spine. Recommend continued conservative management. Plan: Medical management of osteoporosis Activity as tolerated within limits of her pain, may consider TLSO brace (patient declined order for brace) Vital Signs/I&O Vital Signs Date Time Temp Pulse Resp B/P (MAP) Pulse Ox O2 Delivery O2 Flow Rate FiO2 04/15/21 11:39 18 04/15/21 06:00 97.0 93 128/60 (82) 97 Room Air I&O- Last 24 Hours up to 6 AM 04/15/21 06:00 Intake Total 2030 ml Output Total 1500 ml Balance 530 ml Laboratory Data Labs 24H Laboratory Tests 2 04/14/21 15:48: Anion Gap 5L, Glomerular Filtration Rate 23.8L, Calcium Level 9.7 04/14/21 18:51: Anion Gap 6L, Glomerular Filtration Rate 24.5L, Calcium Level 9.7 04/15/21 00:30: Anion Gap 7L, Glomerular Filtration Rate 24.6L, Calcium Level 9.2 04/15/21 06:06: Anion Gap 13, Glomerular Filtration Rate 27.4L, Calcium Level 9.0, Nucleated Red Blood Cells % (auto) 0.0, Magnesium Level 1.9, Total Bilirubin 0.8#, Aspartate Amino Transf (AST/SGOT) 24, Alanine Aminotransferase (ALT/SGPT) 14, Alkaline Phosphatase 189H, Total Protein 6.7, Albumin 3.3, Albumin/Globulin Ratio 1.0L CBC/BMP Laboratory Tests 04/14/21 15:48 04/14/21 18:51 04/15/21 00:30 04/15/21 06:06 Allergies Coded Allergies: latex (Verified Allergy, Intermediate, rash, itch, 04/06/21) Home Medications Scheduled Amlodipine Besylate (Amlodipine Besylate) 2.5 Mg Tablet, 2.5 MG PO DAILY, (Reported) PER PT, MED ON HOLD UNTIL AFTER SURGERY, UNSURE WHY IT WAS PUT ON HOLD Imipramine HCl (Imipramine HCl) 10 Mg Tablet, 20 MG PO QHS, (Reported) Lovastatin (Lovastatin) 20 Mg Tablet, 20 MG PO QPM, (Reported) Propranolol HCl (Propranolol HCl ER) 60 Mg Cap.sa.24h, 60 MG PO DAILY, (Reporte d) Sulfamethoxazole/Trimethoprim (Bactrim Ds Tablet) 1 Each Tablet, 1 TAB PO BID, (Reported) FOR 10 DAYS, STARTED 04/06 JOVANY THORNTON MD Apr 15, 2021 13:31
[2021-04-15] MEDS ORDERED: VARIBAR PUDDING 40% w/v 230ML TUBE As Ordered ONE (13:59)
[2021-04-15 14:00] VITALS: BP 146/78
[2021-04-15] MEDS ORDERED: E-Z-PAQUE 96% w/w SUSP 176GM BTL As Ordered ONE (14:00)
[2021-04-15] MEDS ORDERED: VARIBAR NECTAR 40% w/v 240ML SUSP BTL As Ordered ONE (14:00)
[2021-04-15] MEDS ORDERED: BARIUM SULFATE 700 MG TABLET (E-Z-DISK) As Ordered ONE (14:00)
[2021-04-15] MEDS: SODIUM BICARBONATE 75 MEQ in NS 0.45% 1,000 ML IV SCH (14:32)
--- NOTE | 2021-04-15 16:06 | REP ---
INDICATION: Malignancy. COMPARISON: Chest x-ray 04/02/2021, modified barium swallow 04/15/[address] TECHNIQUE: Noncontrast imaging through the chest with coronal and sagittal reconstructions provided. FINDINGS: The lung apices show calcified pleuroparenchymal scarring in the extreme left apex and peripherally in the right apex. COPD with emphysematous changes and bullous changes in the apices. No other pleural findings in the upper lung zones. There is some minor pleural thickening or atelectatic change lateral basal segment left lower lobe in the deep sulcus and also in the medial basal segment of that same lobe. No effusion. No pulmonary nodules. Cylindrical bronchiectatic changes are seen. No air bronchograms with consolidation. The heart is not enlarged there is no pericardial thickening or effusion. The ascending aorta has a maximum AP diameter 3.2 cm calcifications are seen in the ascending arch and descending portions of the aorta proximal arch has a maximum diameter of 2.8 cm. The distal arch but 2.7 cm. There is ectasia and distal of thoracic aorta is dilated up to 3.4 cm as it crosses the midline towards the right. At the aortic hiatus it tapers to 2.1 cm. Heavy atherosclerotic calcifications are seen no saccular aneurysm. The 3.54 cm distal thoracic aortic diameter is the largest relative to position. There is no pathologic sized mediastinal or hilar adenopathy. There is dense barium from the thoracic inlet filling the esophagus to the distal esophagus. None of it makes it into the stomach there is soft tissue density in the central lumen distally with the lumen then occluded at just above the GE junction. There has been no aspiration. Bone windows show biconcave L2 vertebral body without paraspinal hematoma that would clearly defined this is an acute compression fracture remainder of the vertebral bodies show no compression fracture or destructive lesion bones are demineralized. The sagittal reconstruction show thoracic aortic stenosis at the hiatus. The ribs, clavicles, visualized portions of scapula and humeral heads as well as sternum and manubrium are all unremarkable. Upper abdomen shows that portion of the kidneys with extrarenal pelvis on the right and a hyperdense cyst laterally on the left the gallbladder shows some small layered stones or gravel and is well filled. Liver, spleen adrenal glands as well as pancreas were unremarkable. IMPRESSION: 1. There is obstruction of the distal esophagus with soft tissue density in the distal esophageal lumen which could be tumor and/or impacted food just above an obstruction. This is highly suspicious for esophageal malignancy. No barium is seen in the stomach from today's modified barium swallow. There was no aspiration. 2. Advanced COPD with emphysematous changes, some pulmonary artery hypertension, cylindrical bronchiectasis and bilateral apical pleuroparenchymal scarring with calcifications. No definite effusion or acute infiltrate, pulmonary nodules or suspicious mass. 3. Old biconcave wedge compression deformity of L2 without paraspinal hematoma or other sign to suggest that this is acute remainder of the thoracic spine other bony structures grossly intact peer 4. Thoracic aortic calcification tortuosity than ectasia with mild aneurysmal dilatation distal thoracic aorta and a stenosis at the aortic hiatus with return to similar caliber seen above that stricture in the proximal abdominal aorta. 5. Heart not enlarged. No pericardial thickening or effusion, adenopathy or other acute finding. <Electronically signed by Shiv Tirado > 04/15/21 1893
--- NOTE | 2021-04-15 17:16 | REP ---
INDICATION: swallowing issues. COMPARISON: NONE TECHNIQUE: The procedure was performed under the direct supervision of . The procedure was performed with Eli Lovett from speech pathology present. FINDINGS: The patient was assessed upon entering the room. The patient is in an upright position and conversing appropriately. A video pharyngo esophagram was then performed. 5 cc aliquots of honey and nectar consistency barium was administered. There is no evidence of penetration or aspiration. A detailed report of this examination will be provided by speech pathology. 0.6 minutes of fluoroscopy time was utilized for this procedure. IMPRESSION: There is no evidence of penetration or aspiration. A detailed report of this examination will be provided by speech pathology. <Electronically signed by Jaiden Palm > 04/15/21 1640 <Electronically signed by Cam Arango > 04/15/21 [id number]
[2021-04-15 22:00] VITALS: BP 140/77
[2021-04-16] MEDS: SODIUM BICARBONATE 75 MEQ in NS 0.45% 1,000 ML IV SCH (04:56)
[2021-04-16 06:38] VITALS: BP 120/74
[2021-04-16] MEDS ORDERED: ALENDRONATE 35MG TABLET PO SCH (07:00)
[2021-04-16 09:03] LABS: BASO # 0.1 10^3/uL (0.0-0.2); BASO % 0.4 % (0.0-1.0); EOS # 0.1 10^3/uL (0.0-0.5); EOS % 0.7 % (0.0-3.0); HEMATOCRIT 38.3 % (36.0-47.0); HEMOGLOBIN 12.8 g/dl (12.0-15.5); LYMPH # 1.1 10^3/uL (1.5-5.0); LYMPH % 7.7 % (24.0-44.0); MEAN CORPUSCULAR HEMOGLOBIN 33.4 pg (27.0-33.0); MEAN CORPUSCULAR HGB CONC 33.4 g/dl (32.0-36.5); MONO # 1.3 10^3/uL (0.0-0.8); MONO % 9.1 % (2.0-8.0); NEUTROPHILS # 11.5 10^3/uL (1.5-8.5); NEUTROPHILS % 81.5 % (36.0-66.0); PLATELET COUNT, AUTOMATED 339 10^3/uL (150-450); RED BLOOD COUNT 3.83 10^6/uL (4.00-5.40); WHITE BLOOD COUNT 14.1 10^3/uL (4.0-10.0)
[2021-04-16 09:27] LABS: ALBUMIN 2.9 GM/DL (3.2-5.2); BILIRUBIN,TOTAL 0.6 MG/DL (0.2-1.0); CALCIUM LEVEL 8.6 MG/DL (8.8-10.2); CREATININE FOR GFR 1.37 MG/DL (0.55-1.30); GLOMERULAR FILTRATION RATE 38.7 (>32); MAGNESIUM LEVEL 1.9 MG/DL (1.8-2.4); POTASSIUM SERUM 4.4 MEQ/L (3.5-5.1); TOTAL PROTEIN 6.2 GM/DL (6.4-8.2)
[2021-04-16] MEDS ORDERED: ONDANSETRON 4 MG ORAL DISINTEGRATING TAB PO PRN (10:45)
[2021-04-16] MEDS ORDERED: MORPHINE 10MG/0.5ML ORAL CONCENTRATE SOLUTION U/D SL PRN (10:45)
[2021-04-16] MEDS ORDERED: LORazepam 2 MG/ML VIAL IV PRN (10:45)
[2021-04-16] MEDS ORDERED: ATROPINE SULFATE 1% OP SOLN 2 ML BTL SL PRN (10:45)
[2021-04-16] MEDS ORDERED: MORPHINE 2 MG/ML 1ML VIAL (J2270) IV PRN (10:45)
[2021-04-16] MEDS ORDERED: HYOSCYAMINE SULFATE 0.125 MG SUBL TABLET PO PRN (10:45)
[2021-04-16] MEDS ORDERED: SCOPOLAMINE 1MG TRANSDERMAL PATCH TOP PRN (10:45)
[2021-04-16] MEDS ORDERED: BISACODYL 10 MG SUPP PR PRN (10:45)
[2021-04-16] MEDS ORDERED: LORazepam 1 MG TAB PO PRN (10:45)
[2021-04-16] MEDS ORDERED: FLEET ENEMA PR PRN (10:45)
[2021-04-16] MEDS ORDERED: ONDANSETRON 4MG/2ML VIAL IV PRN (10:45)
--- NOTE | 2021-04-19 14:44 | IPNPDOC ---
Subjective Review oF Systems Chief Complaint The patient is a 89-year-old female admitted with a reason for visit of JOSE. Events since Last Encounter No acute events. Patient denies pain. Objective Physical Examination General Exam: Alert, Cooperative, No Acute Distress Chest Exam: Normal air movement Heart Exam: Positive: Rate Normal Skin Exam: Nl turgor and temperature Neuro Exam: Normal Speech Psych Exam: Mental status NL, Mood NL Other physical findings catheter draining clear yellow urine Vital Signs/I&O Vital Signs Date Time Temp Pulse Resp B/P (MAP) Pulse Ox O2 Delivery O2 Flow Rate FiO2 04/16/21 06:38 98.1 105 18 120/74 (89) 95 Room Air I&O- Last 24 Hours up to 6 AM 04/19/21 06:00 Intake Total 540 ml Output Total 375 ml Balance 165 ml Assessment/Plan Date Seen The patient was seen on 04/19/21. Patient Summary This is an 89 y/o F admitted for JOSE, POD 6 s/p TURBT. Her pathology results showed high grade muscle invasive bladder cancer. Given that pathologic findings and the fact that a complete resection was not possible, her best chance of cure from this would be a radical cystectomy w/ neoadjuvant chemoth erapy. This was discussed in detail w/ the patient, her , and her daughter. Since her admission here a few days ago she has also been found to have an esophageal mass, likely representing a different primary tumor. Because of this finding, the patient and family have already decided against further aggressive treatment and have opted for hospice care instead. Given her a ggressive bladder cancer and difficulty she would likely have w/ further treatment, I agree w/ hospice care for her. I recommend that her catheter be kept in for 3 more days to allow further time for bladder healing. This can be removed at home by [facility] nurse. Plan/VTE VTE Prophylaxis Ordered?: Yes Plan - pathology results discussed w/ patient and family - agree w/ hospice care - remove catheter in 3 days - patient and family aware to call our office should patient develop any difficulty voiding after her catheter is removed DANI TAVARES MD Apr 19, 2021 14:44
[2021-04-20] MEDS ORDERED: ATIV1TAB7 PO (10:37)
[2021-04-20] MEDS ORDERED: TRAN1DIS4 TOP (10:37)
[2021-04-20] MEDS ORDERED: ONDA4TAB6 PO (10:37)
[2021-04-20] MEDS ORDERED: PERCOCET PO (10:37)
--- NOTE | 2021-04-20 13:35 | DS.PDOC ---
Discharge Summary General Date of Admission Apr 14, 2021 at 08:26 Date of Discharge 04/20/21 Discharge Summary PROCEDURES PERFORMED DURING STAY: [None]. ADMITTING DIAGNOSES: JOSE (acute kidney injury)/metabolic acidosis Left hip pain/osteoporosis/ osteoarthritis Low back pain Hypertension Hyperkalemia Oropharyngeal dysfunction DISCHARGE DIAGNOSES: JOSE (acute kidney injury)/metabolic acidosis Left hip pain/osteoporosis/ osteoarthritis Low back pain Hypertension Hyperkalemia Oropharyngeal dysfunction COMPLICATIONS/CHIEF COMPLAINT: JOSE. HISTORY OF PRESENT ILLNESS: Patient is a 89 years old female with a past medical history of anxiety, hyperlipidemia, bladder tumor, osteopenia CVA, Raynaud's syndrome presented to hospital with increased left hip and low back pain. Patient stated that she has a chronic back pain for years but for past few days her pain became progressively worse. Patient denied any fever or chills. Of note patient had Cystoscopy, transurethral partial resection of bladder tumor (greater than 5cm). In ER patient was found to have no leukocytosis, potassium 6.7, sodium level 131, creatinine 2.6. EKG showed normal sinus rhythm without acute ischemic changes. CT abdomen pelvis showed lobular bladder wall thickening which may reflect residual bladder mass or postoperative edema, Colonic diverticulosis without radiographic evidence of diverticulitis. HOSPITAL COURSE: During the hospital stay patient received treatment for kidney acute kidney injury, low back pain hypertension and oropharyngeal dysfunction. Patient was found to have mass in the distal part of the esophagus which was cause of obstruction. According to patient's wishes she was transferred to [facility] status DISCHARGE MEDICATIONS: Please see below. ALLERGIES: Please see below. PHYSICAL EXAMINATION ON DISCHARGE: VITAL SIGNS: Please see below. GENERAL APPEARANCE: Frail female HEENT: no scleral icterus, no JVD, EOMI CARDIOVASCULAR: S1S2 LUNGS: Diminished lung sounds bilaterally ABDOMEN: soft & not tender w palpation MUSCULOSKELETAL: no cyanosis, no swelling, tenderness over L4-L5 on palpation INTEGUMENT: no generalized pallor NEUROLOGICAL: cranial nerve function from 2-12 intact, follows commands, speech not dysarthric LABORATORY DATA: Please see below. IMAGING: [facility] NAME: ALEXANDER SIFUENTES DATE OF : 1930 AGE: 89 SEX: F REPORT #: [id number] ROOM: [facility] TECHNOLOGIST: [id number] DOCTOR: MALCOM SANTOYO DO Ordered for Date&Time: 04/15/21 1441 cc: [~ rep ct ivnm] Service Date&Time: 04/15/21 1506 This report is in Signed status. If this report is in a DRAFT status it has not yet been reviewed by the radiologist for accuracy. Thank you for having your radiology procedures performed at [facility] RADIOLOGY REPORT Date&Time printed: [~ rep prt dt last] [~ rep prt tm last] Page [address] of [address] [id number] RADIOLOGY REPORT This report is in Signed status. If this report is in a DRAFT status it has not yet been reviewed by the radiologist for accuracy. Thank you for having your radiology procedures performed at [facility] RADIOLOGY REPORT Date&Time printed: [~ rep prt dt last] [~ rep prt tm last] Page 1 of 1 COMPARISON: Chest x-ray 04/02/2021, modified barium swallow 04/15/[address] TECHNIQUE: Noncontrast imaging through the chest with coronal and sagittal reconstructions provided. FINDINGS: The lung apices show calcified pleuroparenchymal scarring in the extreme left apex and peripherally in the right apex. COPD with emphysematous changes and bullous ricardo nges in the apices. No other pleural findings in the upper lung zones. There is some minor pleural thickening or atelectatic change lateral basal segment left lower lobe in the deep sulcus and also in the medial basal segment of that same lobe. No effusion. No pulmonary nodules. Cylindrical bronchiectatic changes are seen. No air bronchograms with consolidation. The heart is not enlarged there is no pericardial thickening or effusion. The ascending aorta has a maximum AP diameter 3.2 cm calcifications are seen in the ascending arch and descending portions of the aorta proximal arch has a maximum diameter of 2.8 cm. The distal arch but 2.7 cm. There is ectasia and distal of thoracic aorta is dilated up to 3.4 cm as it crosses the midline towards the right. At the aortic hiatus it tapers to 2.1 cm. Heavy atherosclerotic calcifications are seen no saccular aneurysm. The 3.54 cm distal thoracic aortic diameter is the largest relative to position. There is no pathologic sized mediastinal or hilar adenopathy. There is dense barium from the thoracic inlet filling the esophagus to the distal esophagus. None of it makes it into the stomach there is soft tissue density in the central lumen distally with the lumen then occluded at just above the GE junction. There has been no aspiration. Bone windows show biconcave L2 vertebral body without paraspinal hematoma that would clearly defined this is an acute compression fracture remainder of the vertebral bodies show no compression fracture or destructive lesion bones are demineralized. The sagittal reconstruction show thoracic aortic stenosis at the hiatus. The ribs, clavicles, visualized portions of scapula and humeral heads as well as sternum and manubrium are all unremarkable. Upper abdomen shows that portion of the kidneys with extrarenal pelvis on the right and a hyperdense cyst laterally on the left the gallbladder shows some small layered stones or gravel and is well filled. Liver, spleen adrenal glands as well as pancreas were unremarkable. IMPRESSION: 1. There is obstruction of the distal esophagus with soft tissue density in the distal esophageal lumen which could be tumor and/or impacted food just above an obstruction. This is highly suspicious for esophageal malignancy. No barium is seen in the stomach from today's modified barium swallow. There was no aspiration. 2. Advanced COPD with emphysematous changes, some pulmonary artery hypertension, cylindrical bronchiectasis and bilateral apical pleuroparenchymal scarring with calcifications. No definite effusion or acute infiltrate, pulmonary nodules or suspicious mass. 3. Old biconcave wedge compression deformity of L2 without paraspinal hematoma or other sign to suggest that this is acute remainder of the thoracic spine other bony structures grossly intact peer 4. Thoracic aortic calcification tortuosity than ectasia with mild aneurysmal dilatation distal thoracic aorta and a stenosis at the aortic hiatus with return to similar caliber seen above that stricture in the proximal abdominal aorta. 5. Heart not enlarged. No pericardial thickening or effusion, adenopathy or other acute finding. <Electronically signed by Shiv Tirado > 04/15/21 160 DD: Shiv Tirado MD 04/15/21 154 DT: MALISSA 04/15/21 160 DS: YONAS 04/15/21 15404/15/21 154 [~ rep ct labl] PROGNOSIS: Poor ACTIVITY: [As tolerated]. DISPOSITION: Hospice care ITEMS TO FOLLOWUP ON ON OUTPATIENT: With hospice DISCHARGE CONDITION: [Stable]. TIME SPENT ON DISCHARGE: 40 minutes. Vital Signs/I&Os Vital Signs Date Time Temp Pulse Resp B/P (MAP) Pulse Ox O2 Delivery O2 Flow Rate FiO2 04/16/21 06:38 98.1 105 18 120/74 (89) 95 Room Air I&O- Last 24 Hours up to 6 AM 04/20/21 06:00 Intake Total 1200 ml Output Total 351 ml Balance 849 ml Discharge Medications Scheduled PRN Lorazepam (Ativan) 1 Mg Tablet, 1 MG PO Q2HP PRN for ANXIETY Ondansetron (Ondansetron Odt) 4 Mg Tab.rapdis, 4 MG PO Q6HP PRN for NAUSEA OR VOMITING Oxycodone/Acetaminophen (Oxycodone-Acetaminophen 5-325) 1 Each Tablet, 2 TAB PO Q6HP PRN for SEVERE PAIN (PS 8-10) Scopolamine (Transderm-Scop) 1 Each Patch.td.3, 1 MG TOP Q3DP PRN for EXCESSIVE SECRETIONS Allergies Coded Allergies: latex (Verified Allergy, Intermediate, rash, itch, 04/06/21) MALCOM SANTOYO DO Apr 20, 2021 13:35
== END 2021-04-20 13:34 | disposition hospice, home (50) | DRG 552 ==
LOC: M ED 00:31 → M ED INP 08:26 → ENRESERV 08:55 → M MSPAV 10:04
PROVIDERS: ADMIT Internal Medicine; ATTEND Internal Medicine
DX: S32.040A Wedge compression fracture of fourth lumbar vertebra, initial encounter for closed fracture (principal); N17.9 Acute kidney failure, unspecified; E87.2 Acidosis; E87.1 Hypo-osmolality and hyponatremia; C15.9 Malignant neoplasm of esophagus, unspecified; E87.5 Hyperkalemia; Z66 Do not resuscitate; C67.9 Malignant neoplasm of bladder, unspecified; I10 Essential (primary) hypertension; E78.5 Hyperlipidemia, unspecified; Z86.73 Personal history of transient ischemic attack (TIA), and cerebral infarction without residual deficits; Z87.891 Personal history of nicotine dependence; F41.9 Anxiety disorder, unspecified; I73.00 Raynaud's syndrome without gangrene; Z91.040 Latex allergy status; Z79.899 Other long term (current) drug therapy; Z90.49 Acquired absence of other specified parts of digestive tract; Z90.79 Acquired absence of other genital organ(s); Z20.822 Contact with and (suspected) exposure to COVID-19; M25.552 Pain in left hip; M54.50 Low back pain, unspecified; M81.0 Age-related osteoporosis without current pathological fracture; X58.XXXA Exposure to other specified factors, initial encounter; Y92.9 Unspecified place or not applicable

== ENCOUNTER → 2021-05-18 | Outpatient (REF) ==
[~2021-05-18] MED LIST changes: +AMLO2.5T3 PO; +ATIV1TAB7 PO; +ONDA4TAB6 PO; +PERCOCET PO; +TRAN1DIS4 TOP
[2021-05-18 11:19] LABS: AMORPHOUS SEDIMENT SMALL (NEGATIVE); APPEARANCE, URINE TURBID (CLEAR); BACTERIA, URINE AUTO 2+ (NEGATIVE); BILIRUBIN, URINE AUTO NEGATIVE (NEGATIVE); BLOOD, URINE BLOOD 1+ (NEGATIVE); COLOR, URINE YELLOW (YELLOW); GLUCOSE, URINE (UA) AUTO NEGATIVE (NEGATIVE); KETONE, URINE AUTO TRACE mg/dL (NEGATIVE); LEUKOCYTE ESTERASE, URINE AUTO 2+ (NEGATIVE); MUCUS, URINE SMALL (NEGATIVE); NITRITE, URINE AUTO NEGATIVE (NEGATIVE); PROTEIN, URINE AUTO 3+ mg/dL (NEGATIVE); RBC, URINE AUTO 61 /HPF (0-3); RENAL EPITHELIAL CELLS 2 /HPF; SPECIFIC GRAVITY URINE AUTO 1.014 (1.002-1.035); SQUAMOUS EPITHELIAL CELL UR AU 8 /HPF (0-6); WBC, URINE AUTO TNTC /HPF (0-3)
== END ==
LOC: M LAB REF 10:43
DX: Z01.89 Encounter for other specified special examinations (principal)